=== PATIENT | female | born 1935 | race Caucasian/White ===

== ENCOUNTER 2018-05-13 01:40 | Emergency (ER) | payer MEDICARE, OTHER ==
[~2018-05-13] VITALS: Ht 152.4 cm; Wt 81.8 kg
[~2018-05-13 01:40] MED LIST: ATOR40TA PO; CALCIUM; CLOP75TA35 PO; GABA-530 PO; LOSA25TA96 PO; METO50TA17 PO; NITR0.4T51 SL; OXYB5TAB29 PO; ZOLP5TAB8 PO
[2018-05-13 02:47] LABS: CLARITY,URINE CLEAR (Clear); COLOR,URINE STRAW (Yellow); GLUCOSE, URINE NEGATIVE (Neg); KETONES,URINE NEGATIVE (Neg); LEUKOCYTE ESTERASE ,URINE NEGATIVE (Neg); NITRITES, URINE NEGATIVE (Neg); OCCULT BLOOD,URINE NEGATIVE (Neg); PROTEIN,URINE TRACE mg/dl (Neg); UROBILINOGEN,URINE 0.2 E.U/dL (0.2-1.0)
[2018-05-13 02:47] LABS: BASOPHILS % (AUTO) 0.3 % (0-1); EOSINOPHILS # (AUTO) 0.3 X10'3 (0-0.9); EOSINOPHILS % (AUTO) 3.9 % (0-6); HEMATOCRIT 36.4 % (35.0-45.0); HEMOGLOBIN 12.4 g/dl (12.0-16.0); LYMPHOCYTES # (AUTO) 1.1 X10'3 (1.1-4.8); LYMPHOCYTES % (AUTO) 15.9 % (21-51); MEAN CORPUSCULAR HEMOGLOBIN 34.2 PG (27.0-31.0); MEAN CORPUSCULAR HGB CONC 34.1 g/dL (33.0-36.5); MEAN CORPUSCULAR VOLUME 100.2 FL (78-98); MEAN PLATELET VOLUME 7.9 FL (7.4-10.4); MONOCYTES # (AUTO) 0.6 X10'3 (0-0.9); MONOCYTES % (AUTO) 8.2 % (2-12); NEUTROPHILS # (AUTO) 5.2 X10'3 (1.8-7.7); NEUTROPHILS % (AUTO) 71.7 % (42-75); PLATELET COUNT 260 X10'3 (140-440); RED BLOOD COUNT 3.63 X10'6 (4.20-5.60); RED CELL DISTRIBUTION WIDTH 11.2 % (11.5-14.5); WHITE BLOOD COUNT 7.2 X10'3 (4.5-11.0)
[2018-05-13 02:49] LABS: UA COLLECTION TYPE STRAIGHT CATH
[2018-05-13 02:56] LABS: BACTERIA,URINE FEW /HPF (Neg); RBC,URINE NONE SEEN /HPF (0-2); WBC,URINE NONE SEEN /HPF (0-4)
[2018-05-13 02:57] LABS: SQUAMOUS EPITHELIAL CELL,UR FEW /LPF (FEW)
[2018-05-13 02:58] LABS: ALANINE AMINOTRANSFERASE 21 U/L (12-78); ALBUMIN 3.2 G/DL (3.4-5.0); ALBUMIN/GLOBULIN RATIO 0.9 (1.1-1.5); ALKALINE PHOSPHATASE 130 IU/L (46-116); ANION GAP 9 (8-16); ASPARTATE AMINO TRANSFERASE 16 U/L (10-37); BILIRUBIN,TOTAL 0.2 MG/DL (0.1-1.0); BLOOD UREA NITROGEN 15 MG/DL (7-18); BUN/CREATININE RATIO 21.4 (6.6-38.0); CALCIUM 8.2 MG/DL (8.5-10.1); CHLORIDE 99 MMOL/L (99-107); GLUCOSE 190 MG/DL (70-104); POTASSIUM 3.1 MMOL/L (3.5-5.1); SODIUM 133 MMOL/L (135-145); TOTAL CARBON DIOXIDE 25.1 MMOL/L (24-32); TOTAL PROTEIN 6.6 G/DL (6.4-8.2); eGFR 80 ML/MIN
[2018-05-13 03:00] LABS: PARTIAL THROMBOPLASTIN TIME 32 SECONDS (22-32); PROTHROMBIN TIME 9.8 SECONDS (9.0-12.0)
[2018-05-13 03:06] LABS: MAGNESIUM 1.7 MG/DL (1.5-2.4); TROPONIN I < 0.04 NG/ML (0.0-0.05)
[2018-05-13] MEDS ORDERED: potassium Cl 20 mEq SR tablet PO ONE (03:15)
[2018-05-13] MEDS ORDERED: magnesium oxide 400mg tablet PO ONE (03:15)
[2018-05-13] MEDS ORDERED: HYDROcodone/acetaminophen 5mg/325mg tablet PO ONE (03:35)
[2018-05-13 05:32] VITALS: BP 191/98
== END 2018-05-13 05:34 | disposition home or self-care (01) ==
LOC: ER 01:41
DX: E87.6 Hypokalemia (principal); R07.89 Other chest pain; M54.5 Low back pain; I11.0 Hypertensive heart disease with heart failure; I50.9 Heart failure, unspecified; I25.10 Atherosclerotic heart disease of native coronary artery without angina pectoris; E78.00 Pure hypercholesterolemia, unspecified; I25.2 Old myocardial infarction; Z85.118 Personal history of other malignant neoplasm of bronchus and lung; Z91.011 Allergy to milk products; Z88.8 Allergy status to other drugs, medicaments and biological substances; Z79.899 Other long term (current) drug therapy; Z86.73 Personal history of transient ischemic attack (TIA), and cerebral infarction without residual deficits; Z90.710 Acquired absence of both cervix and uterus; W19.XXXA Unspecified fall, initial encounter; Y93.89 Activity, other specified; Y92.89 Other specified places as the place of occurrence of the external cause; Y99.8 Other external cause status
CPT/HCPCS: 36415; 70450; 71045; 80053; 81001; 83735; 83880; 84145; 84484; 85025; 85610; 85730; 93005; 99284; P9612

== ENCOUNTER 2018-08-14 15:19 | Outpatient (CLI) | payer MEDICARE | END 2018-08-14 23:59 | disposition home or self-care (01) | LOC: RAD 15:19 | PROVIDERS: ATTEND Family Medicine | DX: S22.060K Wedge compression fracture of T7-T8 vertebra, subsequent encounter for fracture with nonunion (principal); M40.294 Other kyphosis, thoracic region; I10 Essential (primary) hypertension; Z87.891 Personal history of nicotine dependence; X58.XXXD Exposure to other specified factors, subsequent encounter | CPT/HCPCS: 72146 ==

== ENCOUNTER 2019-01-24 10:36 | Inpatient (IN) | payer MEDICARE ==
[~2019-01-24] VITALS: Ht 152.4 cm; Wt 81.8 kg
[2019-01-24] MEDS ORDERED: metoprolol tartrate 50mg tablet PO ONE ×3 (11:25→22:40)
[2019-01-24 11:39] LABS: BASOPHILS % (AUTO) 0.5 % (0-1); EOSINOPHILS # (AUTO) 0.1 X10'3 (0-0.9); EOSINOPHILS % (AUTO) 1.7 % (0-6); HEMATOCRIT 34.2 % (35.0-45.0); LYMPHOCYTES # (AUTO) 1.4 X10'3 (1.1-4.8); LYMPHOCYTES % (AUTO) 28.7 % (21-51); MEAN CORPUSCULAR HEMOGLOBIN 34.4 PG (27.0-31.0); MEAN CORPUSCULAR VOLUME 98.2 FL (78-98); MEAN PLATELET VOLUME 8.3 FL (7.4-10.4); MONOCYTES # (AUTO) 0.3 X10'3 (0-0.9); MONOCYTES % (AUTO) 5.7 % (2-12); NEUTROPHILS # (AUTO) 3.1 X10'3 (1.8-7.7); NEUTROPHILS % (AUTO) 63.4 % (42-75); PLATELET COUNT 209 X10'3 (140-440); RED BLOOD COUNT 3.48 X10'6 (4.20-5.60); RED CELL DISTRIBUTION WIDTH 12.1 % (11.5-14.5)
[2019-01-24 11:51] LABS: PARTIAL THROMBOPLASTIN TIME 28 SECONDS (22-32)
[2019-01-24 11:54] LABS: ALANINE AMINOTRANSFERASE 23 U/L (12-78); ALBUMIN 3.3 G/DL (3.4-5.0); ALKALINE PHOSPHATASE 115 IU/L (46-116); ANION GAP 5 (8-16); ASPARTATE AMINO TRANSFERASE 16 U/L (10-37); BILIRUBIN,TOTAL 0.3 MG/DL (0.1-1.0); BLOOD UREA NITROGEN 14 MG/DL (7-18); BUN/CREATININE RATIO 24.1 (6.6-38.0); CALCIUM 8.5 MG/DL (8.5-10.1); CHLORIDE 107 MMOL/L (99-107); CREATININE 0.58 MG/DL (0.40-0.90); GLUCOSE 113 MG/DL (70-104); POTASSIUM 3.1 MMOL/L (3.5-5.1); SODIUM 145 MMOL/L (135-145); TOTAL CARBON DIOXIDE 32.6 MMOL/L (24-32); TOTAL PROTEIN 6.5 G/DL (6.4-8.2); eGFR > 90 ML/MIN
[2019-01-24 12:24] LABS: CLARITY,URINE CLEAR (Clear); COLOR,URINE STRAW (Yellow); GLUCOSE, URINE NEGATIVE (Neg); KETONES,URINE NEGATIVE (Neg); LEUKOCYTE ESTERASE ,URINE TRACE (Neg); NITRITES, URINE NEGATIVE (Neg); OCCULT BLOOD,URINE NEGATIVE (Neg); PH,URINE 7.5 (4.8-8.0); PROTEIN,URINE NEGATIVE (Neg); UROBILINOGEN,URINE 0.2 E.U/dL (0.2-1.0)
[2019-01-24 12:25] LABS: UA COLLECTION TYPE STRAIGHT CATH
[2019-01-24 12:40] LABS: SQUAMOUS EPITHELIAL CELL,UR FEW /LPF (FEW)
[2019-01-24 12:43] LABS: BACTERIA,URINE 1+ /HPF (Neg); RBC,URINE 0-2 /HPF (0-2); RENAL CELLS, URINE FEW /HPF
--- NOTE | 2019-01-24 14:05 | NUR ---
neurotele assessment in progress
[2019-01-24] MEDS ORDERED: CefTRIAXone/D5W-Rocephin 1gm 50 ML IV ONE (14:15)
[2019-01-24] MEDS ORDERED: mag hydrox/Alum hydrox/simeth 30ml oral suspension PO PRN (14:40)
[2019-01-24] MEDS ORDERED: morphine 2 MG/ML inj. syringe IV PRN ×2 (14:40)
[2019-01-24] MEDS ORDERED: acetaminophen 325mg tablet PO PRN ×2 (14:40)
[2019-01-24] MEDS ORDERED: ondansetron/PF 4mg/2ml inj IV PRN (14:40)
[2019-01-24] MEDS ORDERED: magnesium hydroxide 30ml (MOM) UD suspension PO PRN (14:40)
[2019-01-24 15:08] LABS: HEMOGLOBIN A1C 5.7 % (4.5-6.2)
[2019-01-24 15:16] LABS: CHOL/HDL RATIO 3.5 (0.00-4.99); CHOLESTEROL 220 MG/DL (0-200); HDL CHOLESTEROL 63 MG/DL (35-60); LDL CHOLESTEROL 134 MG/DL (50-100); PHENYTOIN (DILANTIN) 11.5 UG/ML (10.0-20.0); TRIGLYCERIDES 97 MG/DL (20-135)
--- NOTE | 2019-01-24 15:19 | NUR ---
Patient in room ED 15. I have received report from Antoinette SONI and had the opportunity to ask questions and assume patient care.
[2019-01-24 15:56] VITALS: BP 175/85
--- NOTE | 2019-01-24 16:41 | NUR ---
Niko [id number] Re: Adriana. Reyes 3.1 can we start her on K replacement protocol?
[2019-01-24] MEDS ORDERED: potassium CL 10mEq/100ml bag 100 ML IV PRN (16:55)
[2019-01-24] MEDS ORDERED: magnesium Cl slow-release 64mg tablet PO PRN (16:55)
[2019-01-24] MEDS ORDERED: magnesium 4gm in 100ml NS 100 ML IV PRN (16:55)
[2019-01-24] MEDS ORDERED: potassium Cl 20 mEq SR tablet PO PRN (16:55)
[2019-01-24] MEDS ORDERED: magnesium 2GM in 50ml NS 50 ML IV PRN (16:55)
[2019-01-24] MEDS: potassium Cl 20 mEq SR tablet PO PRN (17:16)
--- NOTE | 2019-01-24 17:17 | NUR ---
swallowed water fine Addendum: 01/24/19 at 1718 by Niko Rowell RN Amended: Links added.
[2019-01-24] MEDS ORDERED: METO-384 PO (17:34)
[2019-01-24] MEDS ORDERED: labetalol 20mg/4ml (5mg/ml) syringe IV PRN ×2 (17:45→17:50)
[2019-01-24] MEDS ORDERED: nitroGLYCERIN 0.4mg SUBLingual tab SL PRN (17:50)
[2019-01-24 18:00] VITALS: BP 197/74
[2019-01-24] MEDS ORDERED: hydrALAZINE 20mg/ml inj. IV PRN (18:05)
--- NOTE | 2019-01-24 18:17 | NUR ---
Problems reprioritized. Patient report given, questions answered & plan of care reviewed with Ana Maria SONI.
--- NOTE | 2019-01-24 18:18 | NUR ---
Patient in room ORTHO 4009. I have received report from NAE Pope and had the opportunity to ask questions and assume patient care.
[2019-01-24] MEDS ORDERED: TOLT4CAP PO (19:40)
[2019-01-24] MEDS ORDERED: PHEN100C4 PO (19:40)
[2019-01-24] MEDS ORDERED: ASPI-611 PO (19:40)
[2019-01-24 20:00] VITALS: BP_SYST 200; BP_SYST 207; BP_DIAS 76; BP_DIAS 82
--- NOTE | 2019-01-24 20:00 | NUR ---
Around this time I called the physician to resume her home mediations that are due at night time and he gave me those orders.
[2019-01-24] MEDS ORDERED: atorvastatin 20mg tablet PO SCH (21:00)
[2019-01-24] MEDS ORDERED: TOLTERODINE TARTRATE PO SCH (21:00)
[2019-01-24] MEDS ORDERED: phenytoin sod ER 100mg capsule PO SCH (21:00)
[2019-01-24 22:00] VITALS: BP 194/81
[2019-01-24 23:33] VITALS: BP 165/74
[2019-01-25] MEDS: potassium Cl 20 mEq SR tablet PO PRN (00:31)
[2019-01-25 01:00] VITALS: BP 167/66
[2019-01-25 04:00] VITALS: BP 209/68
[2019-01-25] MEDS ORDERED: hydrALAZINE 20mg/ml inj. IV PRN (04:35)
[2019-01-25 05:25] VITALS: BP 156/59
[2019-01-25 05:56] LABS: BASOPHILS % (AUTO) 0.6 % (0-1); EOSINOPHILS # (AUTO) 0.2 X10'3 (0-0.9); HEMATOCRIT 33.6 % (35.0-45.0); HEMOGLOBIN 11.7 g/dl (12.0-16.0); LYMPHOCYTES # (AUTO) 1.8 X10'3 (1.1-4.8); MEAN CORPUSCULAR HEMOGLOBIN 34.1 PG (27.0-31.0); MEAN CORPUSCULAR HGB CONC 34.9 g/dL (33.0-36.5); MEAN CORPUSCULAR VOLUME 97.8 FL (78-98); MEAN PLATELET VOLUME 8.4 FL (7.4-10.4); MONOCYTES # (AUTO) 0.4 X10'3 (0-0.9); MONOCYTES % (AUTO) 8.5 % (2-12); NEUTROPHILS # (AUTO) 2.8 X10'3 (1.8-7.7); NEUTROPHILS % (AUTO) 53.9 % (42-75); PLATELET COUNT 208 X10'3 (140-440); RED BLOOD COUNT 3.43 X10'6 (4.20-5.60); RED CELL DISTRIBUTION WIDTH 12.1 % (11.5-14.5); WHITE BLOOD COUNT 5.2 X10'3 (4.5-11.0)
[2019-01-25 06:00] VITALS: BP 209/68
--- NOTE | 2019-01-25 06:42 | NUR ---
Problems reprioritized. Patient report given, questions answered & plan of care reviewed with NAE Ewing.
[2019-01-25 06:44] LABS: ALBUMIN 3.1 G/DL (3.4-5.0); ANION GAP 7 (8-16); BLOOD UREA NITROGEN 14 MG/DL (7-18); BUN/CREATININE RATIO 25.9 (6.6-38.0); CALCIUM 8.5 MG/DL (8.5-10.1); CHLORIDE 103 MMOL/L (99-107); CHOL/HDL RATIO 3.5 (0.00-4.99); CHOLESTEROL 207 MG/DL (0-200); CREATININE 0.54 MG/DL (0.40-0.90); GLUCOSE 115 MG/DL (70-104); HDL CHOLESTEROL 59 MG/DL (35-60); LDL CHOLESTEROL 129 MG/DL (50-100); MAGNESIUM 1.8 MG/DL (1.5-2.4); POTASSIUM 3.4 MMOL/L (3.5-5.1); SODIUM 138 MMOL/L (135-145); TOTAL CARBON DIOXIDE 27.7 MMOL/L (24-32); TRIGLYCERIDES 119 MG/DL (20-135); eGFR > 90 ML/MIN
[2019-01-25] MEDS ORDERED: CefTRIAXone/D5W-Rocephin 1gm 50 ML IV SCH (08:00)
[2019-01-25] MEDS ORDERED: aspirin 81mg tablet.DR PO SCH (08:00)
[2019-01-25] MEDS ORDERED: metoprolol succinate 25mg (24-HOUR) SR. Tablet PO SCH (08:00)
[2019-01-25] MEDS ORDERED: clopidogrel 75mg tablet PO SCH (08:00)
[2019-01-25 10:00] VITALS: BP 179/89
[2019-01-25] MEDS ORDERED: SULF1TAB49 PO (13:05)
--- NOTE | 2019-01-25 13:30 | NUR ---
Page the doctor regarding patient son wanting to see him, twice.
[2019-01-25] MEDS ORDERED: ATOR20TA66 PO (15:26)
[2019-01-25] MEDS ORDERED: atorvastatin 20mg tablet PO SCH (21:00)
== END 2019-01-25 16:21 | disposition home or self-care (01) | DRG 65 ==
LOC: ER 10:36 → ED HOLD 14:46 → ORTHO 4S 15:35
PROVIDERS: ADMIT Internal Medicine; ATTEND Internal Medicine
DX: I63.9 Cerebral infarction, unspecified (principal); N39.0 Urinary tract infection, site not specified; H70.91 Unspecified mastoiditis, right ear; E78.00 Pure hypercholesterolemia, unspecified; E78.5 Hyperlipidemia, unspecified; I11.0 Hypertensive heart disease with heart failure; I50.9 Heart failure, unspecified; I25.10 Atherosclerotic heart disease of native coronary artery without angina pectoris; I25.2 Old myocardial infarction; Z79.02 Long term (current) use of antithrombotics/antiplatelets; Z79.82 Long term (current) use of aspirin; Z79.899 Other long term (current) drug therapy; Z85.118 Personal history of other malignant neoplasm of bronchus and lung; Z85.3 Personal history of malignant neoplasm of breast; Z86.73 Personal history of transient ischemic attack (TIA), and cerebral infarction without residual deficits; Z87.891 Personal history of nicotine dependence; Z90.710 Acquired absence of both cervix and uterus; Z95.1 Presence of aortocoronary bypass graft; Z90.10 Acquired absence of unspecified breast and nipple
CPT/HCPCS: 36415; 70450; 70544; 70551; 71045; 80048; 80053; 80061; 80185; 81001; 83036; 83735; 83880; 84484; 85025; 85610; 85651; 85730; 87077; 87081; 87088; 87186; 93005; 93306; 93880; 97110; 97116; 97162; 99285; G0378; J0360; J0696

== ENCOUNTER → 2021-02-14 | Outpatient (CLI) | payer MEDICARE ==
[~2021-02-14] MED LIST changes: +ASPI-611 PO; +ATOR20TA66 PO; -ATOR40TA PO; -CALCIUM; +CLOP75TA34 PO; -CLOP75TA35 PO; -GABA-530 PO; +METO-384 PO; -METO50TA17 PO; -OXYB5TAB29 PO; +PHEN100C4 PO; +TOLT4CAP PO
== END | disposition home or self-care (01) ==
LOC: RAD 14:37
PROVIDERS: ATTEND Family Medicine
DX: M25.561 Pain in right knee (principal); M25.562 Pain in left knee; M79.604 Pain in right leg; M79.605 Pain in left leg
CPT/HCPCS: 73565; 93970

== ENCOUNTER 2021-09-10 21:02 | Inpatient (IN) | payer MEDICARE ==
[~2021-09-10] VITALS: Ht 152.4 cm; Wt 59.2 kg
[2021-09-10 22:34] LABS: BASOPHILS % (AUTO) 0.6 % (0-1); EOSINOPHILS # (AUTO) 0.1 X10'3 (0-0.9); EOSINOPHILS % (AUTO) 2.4 % (0-6); HEMATOCRIT 35.6 % (35.0-45.0); HEMOGLOBIN 12.3 g/dl (12.0-16.0); LYMPHOCYTES # (AUTO) 1.1 X10'3 (1.1-4.8); LYMPHOCYTES % (AUTO) 20.1 % (21-51); MEAN CORPUSCULAR HEMOGLOBIN 34.5 PG (27.0-31.0); MEAN CORPUSCULAR HGB CONC 34.5 g/dL (33.0-36.5); MEAN CORPUSCULAR VOLUME 100.3 FL (78-98); MEAN PLATELET VOLUME 8.2 FL (7.4-10.4); MONOCYTES # (AUTO) 0.5 X10'3 (0-0.9); MONOCYTES % (AUTO) 9.5 % (2-12); NEUTROPHILS # (AUTO) 3.7 X10'3 (1.8-7.7); NEUTROPHILS % (AUTO) 67.4 % (42-75); PLATELET COUNT 213 X10'3 (140-440); RED BLOOD COUNT 3.55 X10'6 (4.20-5.60); RED CELL DISTRIBUTION WIDTH 12.6 % (11.5-14.5); WHITE BLOOD COUNT 5.5 X10'3 (4.5-11.0)
[2021-09-10 22:47] LABS: ALANINE AMINOTRANSFERASE 37 U/L (12-78); ALBUMIN 3.4 G/DL (3.4-5.0); ALBUMIN/GLOBULIN RATIO 1.1 (1.1-1.5); ALKALINE PHOSPHATASE 132 IU/L (46-116); ANION GAP 9 (8-16); ASPARTATE AMINO TRANSFERASE 27 U/L (10-37); BILIRUBIN,TOTAL 0.3 MG/DL (0.1-1.0); BLOOD UREA NITROGEN 19 MG/DL (7-18); BUN/CREATININE RATIO 28.8 (6.6-38.0); CALCIUM 8.3 MG/DL (8.5-10.1); CHLORIDE 101 MMOL/L (99-107); CREATININE 0.66 MG/DL (0.40-0.90); GLUCOSE 153 MG/DL (70-104); SODIUM 137 MMOL/L (135-145); TOTAL CARBON DIOXIDE 26.6 MMOL/L (24-32); TOTAL PROTEIN 6.5 G/DL (6.4-8.2); eGFR 85 ML/MIN
[2021-09-11 00:09] LABS: MAGNESIUM 1.7 MG/DL (1.5-2.4)
[2021-09-11] MEDS ORDERED: diltiazem 5mg/ml 5ml inj. IV ONE (00:15)
[2021-09-11] MEDS ORDERED: diltiazem-NS 100mg/100ml 100 ML IV PRN (00:15)
[2021-09-11] MEDS ORDERED: morphine 2 MG/ML inj. syringe IV PRN ×2 (00:40)
[2021-09-11] MEDS ORDERED: ondansetron 4mg rapidly disintigrating tab PO PRN (00:40)
[2021-09-11] MEDS ORDERED: HYDROcodone/acetaminophen 5mg/325mg tablet PO PRN (00:40)
[2021-09-11] MEDS ORDERED: acetaminophen 325mg tablet PO PRN ×2 (00:40)
[2021-09-11] MEDS ORDERED: bisacodyl 10mg suppository rectal RC PRN (00:40)
[2021-09-11] MEDS ORDERED: ondansetron/PF 4mg/2ml inj IV PRN (00:40)
[2021-09-11] MEDS ORDERED: diphenhydrAMINE 25mg capsule PO PRN (00:40)
[2021-09-11] MEDS ORDERED: magnesium hydroxide 30ml (MOM) UD suspension PO PRN (00:40)
[2021-09-11] MEDS ORDERED: mag hydrox/Alum hydrox/simeth 30ml oral suspension PO PRN (00:40)
[2021-09-11] MEDS ORDERED: diphenhydrAMINE 50 mg/ml inj IV PRN (00:40)
[2021-09-11] MEDS ORDERED: heparin 10,000 units/1 ML INJ IV PRN (00:50)
[2021-09-11] MEDS: normal saline 1000ml 1,000 ML IV SCH (01:23)
[2021-09-11 02:36] LABS: HEMOGLOBIN A1C 5.8 % (4.5-6.2)
[2021-09-11 03:00] VITALS: BP 149/101
[2021-09-11 04:02] LABS: CREATINE KINASE 50 U/L (26-192); LIPASE 77 U/L (73-393); MAGNESIUM 1.9 MG/DL (1.5-2.4); PHENYTOIN (DILANTIN) 15.3 UG/ML (10.0-20.0); PHOSPHORUS 3.4 MG/DL (2.3-4.5)
[2021-09-11] MEDS: heparin 25,000 UNIT/250ml bag 250 ML IV SCH ×2 (05:21→10:14)
[2021-09-11 06:46] LABS: APTT 29 SECONDS (22-32); D-DIMER 1.32 MG/L FEU (0-0.50)
[2021-09-11 07:00] VITALS: BP 159/98
[2021-09-11 07:02] LABS: BASOPHILS % (AUTO) 0.5 % (0-1); EOSINOPHILS # (AUTO) 0.1 X10'3 (0-0.9); EOSINOPHILS % (AUTO) 2.2 % (0-6); HEMATOCRIT 37.4 % (35.0-45.0); HEMOGLOBIN 12.3 g/dl (12.0-16.0); LYMPHOCYTES # (AUTO) 1.5 X10'3 (1.1-4.8); LYMPHOCYTES % (AUTO) 24.4 % (21-51); MEAN CORPUSCULAR HEMOGLOBIN 33.7 PG (27.0-31.0); MEAN CORPUSCULAR HGB CONC 32.9 g/dL (33.0-36.5); MEAN CORPUSCULAR VOLUME 102.4 FL (78-98); MEAN PLATELET VOLUME 8.4 FL (7.4-10.4); MONOCYTES # (AUTO) 0.5 X10'3 (0-0.9); MONOCYTES % (AUTO) 8.4 % (2-12); NEUTROPHILS # (AUTO) 4.1 X10'3 (1.8-7.7); NEUTROPHILS % (AUTO) 64.5 % (42-75); PLATELET COUNT 183 X10'3 (140-440); RED BLOOD COUNT 3.66 X10'6 (4.20-5.60); RED CELL DISTRIBUTION WIDTH 12.9 % (11.5-14.5); WHITE BLOOD COUNT 6.3 X10'3 (4.5-11.0)
[2021-09-11] MEDS ORDERED: LOP12.5T PO (09:18)
[2021-09-11] MEDS ORDERED: ATOR-2 PO (09:19)
[2021-09-11] MEDS ORDERED: OXYB15TA19 PO (09:21)
[2021-09-11] MEDS ORDERED: metoprolol tartrate 50mg tablet PO SCH ×2 (09:23→17:00)
[2021-09-11] MEDS: docusate sod 100mg capsule PO SCH ×2 (10:52→21:04)
[2021-09-11] MEDS: aspirin 81mg, enteric-coated 1 TAB TABLET.DR PO SCH (10:52)
[2021-09-11] MEDS: pantoprazole 40mg Tablet.DR PO SCH (10:53)
[2021-09-11 11:00] VITALS: BP 157/78
[2021-09-11 12:11] LABS: CHOL/HDL RATIO 1.9 (0.00-4.99); CHOLESTEROL 130 MG/DL (0-200); HDL CHOLESTEROL 70 MG/DL (35-60); LDL CHOLESTEROL 40 MG/DL (50-100); TRIGLYCERIDES 50 MG/DL (20-135)
[2021-09-11 15:00] VITALS: BP 145/92
--- NOTE | 2021-09-11 16:46 | NUR ---
PAGER ID: [phone] MESSAGE: [id number] Lorie Wright: Patients HR has been creeping up into the 130s/140s since Mini greenwood DC. Her BP is also high at 176/110, and no better after recheck. Camila [facility] 6081
--- NOTE | 2021-09-11 16:47 | NUR ---
Dr Smith response to page: Telephone order for metoprolol dose increase to 100MG BID
[2021-09-11] MEDS: metoprolol tartrate 50mg tablet PO SCH (17:02)
[2021-09-11 18:00] VITALS: BP 148/66
--- NOTE | 2021-09-11 18:02 | NUR ---
PAGER ID: [phone] MESSAGE: [id number] Lorie Wright: [id number] PTT was 120, Heparin drip stopped. Will restart in 120 minutes and reduce rate by 3 units/kg/hr [facility] 5455
[2021-09-11] MEDS ORDERED: temazepam 15mg capsule PO PRN (21:00)
[2021-09-11] MEDS: amiodarone 200mg tablet PO SCH (21:04)
[2021-09-11] MEDS: zolpidem 5mg tablet PO SCH (21:04)
[2021-09-11] MEDS: atorvastatin 20mg tablet PO SCH (21:07)
[2021-09-11] MEDS: phenytoin sod ER 100mg capsule PO SCH (21:08)
[2021-09-11] MEDS: enoxaparin 60mg/0.6ml syringe SUBCUT SCH (21:13)
[2021-09-11 22:00] VITALS: BP 145/77
[2021-09-12 02:00] VITALS: BP 143/93
[2021-09-12 06:00] VITALS: BP 135/79
--- NOTE | 2021-09-12 06:00 | NUR ---
Patient in room PCU 3016. I have received report and had the opportunity to ask questions and assume patient care.
[2021-09-12 06:43] LABS: BASOPHILS % (AUTO) 0.7 % (0-1); EOSINOPHILS # (AUTO) 0.1 X10'3 (0-0.9); EOSINOPHILS % (AUTO) 2.4 % (0-6); HEMOGLOBIN 11.8 g/dl (12.0-16.0); LYMPHOCYTES % (AUTO) 20.2 % (21-51); MEAN CORPUSCULAR HEMOGLOBIN 34.5 PG (27.0-31.0); MEAN CORPUSCULAR HGB CONC 34.8 g/dL (33.0-36.5); MEAN CORPUSCULAR VOLUME 99.3 FL (78-98); MEAN PLATELET VOLUME 8.1 FL (7.4-10.4); MONOCYTES # (AUTO) 0.4 X10'3 (0-0.9); MONOCYTES % (AUTO) 7.9 % (2-12); NEUTROPHILS # (AUTO) 3.5 X10'3 (1.8-7.7); NEUTROPHILS % (AUTO) 68.8 % (42-75); PLATELET COUNT 192 X10'3 (140-440); RED BLOOD COUNT 3.42 X10'6 (4.20-5.60); RED CELL DISTRIBUTION WIDTH 12.4 % (11.5-14.5); WHITE BLOOD COUNT 5.1 X10'3 (4.5-11.0)
[2021-09-12 07:03] LABS: ALANINE AMINOTRANSFERASE 35 U/L (12-78); ALBUMIN/GLOBULIN RATIO 1.1 (1.1-1.5); ALKALINE PHOSPHATASE 104 IU/L (46-116); ANION GAP 6 (8-16); ASPARTATE AMINO TRANSFERASE 24 U/L (10-37); BILIRUBIN,TOTAL 0.4 MG/DL (0.1-1.0); BLOOD UREA NITROGEN 11 MG/DL (7-18); BUN/CREATININE RATIO 16.4 (6.6-38.0); CALCIUM 8.1 MG/DL (8.5-10.1); CHLORIDE 99 MMOL/L (99-107); CHOL/HDL RATIO 1.8 (0.00-4.99); CHOLESTEROL 120 MG/DL (0-200); CREATININE 0.67 MG/DL (0.40-0.90); GLUCOSE 112 MG/DL (70-104); HDL CHOLESTEROL 67 MG/DL (35-60); LDL CHOLESTEROL 33 MG/DL (50-100); POTASSIUM 3.3 MMOL/L (3.5-5.1); SODIUM 135 MMOL/L (135-145); TOTAL CARBON DIOXIDE 29.9 MMOL/L (24-32); TOTAL PROTEIN 5.8 G/DL (6.4-8.2); TRIGLYCERIDES 45 MG/DL (20-135); eGFR 83 ML/MIN
[2021-09-12] MEDS: aspirin 81mg, enteric-coated 1 TAB TABLET.DR PO SCH (08:54)
[2021-09-12] MEDS: metoprolol tartrate 50mg tablet PO SCH ×2 (08:54→19:14)
[2021-09-12] MEDS: clopidogrel 75mg tablet PO SCH (08:54)
[2021-09-12] MEDS: docusate sod 100mg capsule PO SCH ×2 (08:54→19:11)
[2021-09-12] MEDS: amiodarone 200mg tablet PO SCH ×2 (08:55→19:12)
[2021-09-12] MEDS: pantoprazole 40mg Tablet.DR PO SCH (08:55)
[2021-09-12] MEDS: enoxaparin 60mg/0.6ml syringe SUBCUT SCH ×2 (08:55→19:16)
[2021-09-12] MEDS ORDERED: digoxin 250mcg/ml 2ml ampule IV ONE ×2 (10:20→16:30)
[2021-09-12 11:00] VITALS: BP 166/95
[2021-09-12] MEDS: POTASSIUM BICARBONATE/CIT AC 10 MEQ TABLET.EFF PO SCH (11:14)
[2021-09-12] MEDS: furosemide 20 MG/2 ML vial IV SCH (11:14)
[2021-09-12 15:00] VITALS: BP 154/88
[2021-09-12 18:00] VITALS: BP 113/58
[2021-09-12] MEDS: HYDROcodone/acetaminophen 10/325mg tab PO PRN (19:15)
[2021-09-12 22:00] VITALS: BP 139/86
[2021-09-12] MEDS: zolpidem 5mg tablet PO SCH (22:06)
[2021-09-12] MEDS: phenytoin sod ER 100mg capsule PO SCH (22:07)
[2021-09-12] MEDS: atorvastatin 20mg tablet PO SCH (22:07)
[2021-09-13] VITALS (13 sets, daily range): BP systolic 107–155; BP diastolic 49–97
[2021-09-13] MEDS: normal saline 1000ml 1,000 ML IV SCH (01:24)
[2021-09-13 06:39] LABS: BASOPHILS % (AUTO) 0.3 % (0-1); EOSINOPHILS # (AUTO) 0.2 X10'3 (0-0.9); EOSINOPHILS % (AUTO) 2.9 % (0-6); HEMATOCRIT 34.1 % (35.0-45.0); HEMOGLOBIN 11.8 g/dl (12.0-16.0); LYMPHOCYTES # (AUTO) 1.3 X10'3 (1.1-4.8); LYMPHOCYTES % (AUTO) 20.1 % (21-51); MEAN CORPUSCULAR HEMOGLOBIN 34.5 PG (27.0-31.0); MEAN CORPUSCULAR HGB CONC 34.4 g/dL (33.0-36.5); MEAN PLATELET VOLUME 8.2 FL (7.4-10.4); MONOCYTES # (AUTO) 0.6 X10'3 (0-0.9); MONOCYTES % (AUTO) 9.8 % (2-12); NEUTROPHILS # (AUTO) 4.3 X10'3 (1.8-7.7); NEUTROPHILS % (AUTO) 66.9 % (42-75); PLATELET COUNT 185 X10'3 (140-440); RED BLOOD COUNT 3.41 X10'6 (4.20-5.60); RED CELL DISTRIBUTION WIDTH 12.3 % (11.5-14.5); WHITE BLOOD COUNT 6.4 X10'3 (4.5-11.0)
--- NOTE | 2021-09-13 06:39 | NUR ---
Patient in room PCU 3016. I have received report and had the opportunity to ask questions and assume patient care.
[2021-09-13 07:11] LABS: ALANINE AMINOTRANSFERASE 34 U/L (12-78); ALBUMIN 2.9 G/DL (3.4-5.0); ALKALINE PHOSPHATASE 105 IU/L (46-116); ANION GAP 8 (8-16); ASPARTATE AMINO TRANSFERASE 24 U/L (10-37); BILIRUBIN,TOTAL 0.3 MG/DL (0.1-1.0); BLOOD UREA NITROGEN 14 MG/DL (7-18); BUN/CREATININE RATIO 20.3 (6.6-38.0); CALCIUM 8.1 MG/DL (8.5-10.1); CHLORIDE 96 MMOL/L (99-107); CREATININE 0.69 MG/DL (0.40-0.90); GLUCOSE 92 MG/DL (70-104); POTASSIUM 3.6 MMOL/L (3.5-5.1); SODIUM 135 MMOL/L (135-145); TOTAL CARBON DIOXIDE 31.3 MMOL/L (24-32); TOTAL PROTEIN 5.7 G/DL (6.4-8.2); eGFR 81 ML/MIN
[2021-09-13] MEDS: pantoprazole 40mg Tablet.DR PO SCH (07:30)
[2021-09-13] MEDS: amiodarone 200mg tablet PO SCH ×2 (08:40→19:36)
[2021-09-13] MEDS: furosemide 20 MG/2 ML vial IV SCH (08:40)
[2021-09-13] MEDS: clopidogrel 75mg tablet PO SCH (08:44)
[2021-09-13] MEDS: POTASSIUM BICARBONATE/CIT AC 10 MEQ TABLET.EFF PO SCH (08:44)
[2021-09-13] MEDS: aspirin 81mg, enteric-coated 1 TAB TABLET.DR PO SCH (08:44)
[2021-09-13] MEDS: metoprolol tartrate 50mg tablet PO SCH ×2 (08:45→19:38)
[2021-09-13] MEDS: enoxaparin 60mg/0.6ml syringe SUBCUT SCH ×2 (08:46→19:38)
[2021-09-13] MEDS: docusate sod 100mg capsule PO SCH ×2 (08:46→19:35)
[2021-09-13] MEDS ORDERED: MIDAZolam 1mg/ml 10ml vial IV ONE (10:15)
[2021-09-13] MEDS ORDERED: morphine 10mg/ml inj. IV ONE (10:15)
[2021-09-13] MEDS ORDERED: amiodarone 150mg/dext, iso-os 100 ML IV ONE (11:15)
[2021-09-13] MEDS: HYDROcodone/acetaminophen 10/325mg tab PO PRN ×2 (12:26→19:42)
--- NOTE | 2021-09-13 14:00 | NUR ---
ambulated patient to bathroom, when returned to bed reported feeling extremely dizzy and nauseous. Q Addendum: 09/13/21 at 1754 by Jimenez Hampton RN Quickly began to feel better while laying in bed, VS obtained, WNL. recovered within 2 minutes and was feeling back to baseline
[2021-09-13] MEDS: zolpidem 5mg tablet PO SCH (20:58)
[2021-09-13] MEDS: phenytoin sod ER 100mg capsule PO SCH (20:58)
[2021-09-13] MEDS: atorvastatin 20mg tablet PO SCH (20:59)
--- NOTE | 2021-09-14 00:13 | NUR ---
pt had ST-segment elevation,MD Link notified.no new orders at this time.
[2021-09-14 02:00] VITALS: BP 125/55
[2021-09-14 06:48] LABS: BASOPHILS % (AUTO) 0.3 % (0-1); EOSINOPHILS # (AUTO) 0.1 X10'3 (0-0.9); EOSINOPHILS % (AUTO) 1.8 % (0-6); HEMATOCRIT 36.3 % (35.0-45.0); HEMOGLOBIN 12.1 g/dl (12.0-16.0); LYMPHOCYTES # (AUTO) 1.3 X10'3 (1.1-4.8); LYMPHOCYTES % (AUTO) 17.4 % (21-51); MEAN CORPUSCULAR HEMOGLOBIN 33.9 PG (27.0-31.0); MEAN CORPUSCULAR HGB CONC 33.2 g/dL (33.0-36.5); MEAN PLATELET VOLUME 8.2 FL (7.4-10.4); MONOCYTES # (AUTO) 0.7 X10'3 (0-0.9); MONOCYTES % (AUTO) 9.7 % (2-12); NEUTROPHILS # (AUTO) 5.4 X10'3 (1.8-7.7); NEUTROPHILS % (AUTO) 70.8 % (42-75); PLATELET COUNT 168 X10'3 (140-440); RED BLOOD COUNT 3.56 X10'6 (4.20-5.60); RED CELL DISTRIBUTION WIDTH 12.6 % (11.5-14.5); WHITE BLOOD COUNT 7.7 X10'3 (4.5-11.0)
[2021-09-14] MEDS: enoxaparin 60mg/0.6ml syringe SUBCUT SCH (08:00)
[2021-09-14] MEDS: amiodarone 200mg tablet PO SCH (08:00)
[2021-09-14] MEDS: aspirin 81mg, enteric-coated 1 TAB TABLET.DR PO SCH (08:00)
[2021-09-14] MEDS: pantoprazole 40mg Tablet.DR PO SCH (08:00)
[2021-09-14 08:04] VITALS: BP_SYST 124
[2021-09-14] MEDS: furosemide 20 MG/2 ML vial IV SCH (08:04)
[2021-09-14] MEDS: docusate sod 100mg capsule PO SCH (08:04)
[2021-09-14] MEDS: metoprolol tartrate 50mg tablet PO SCH (08:04)
[2021-09-14] MEDS: clopidogrel 75mg tablet PO SCH (08:04)
[2021-09-14 08:16] LABS: ALANINE AMINOTRANSFERASE 42 U/L (12-78); ALBUMIN 3.1 G/DL (3.4-5.0); ALKALINE PHOSPHATASE 110 IU/L (46-116); ANION GAP 7 (8-16); ASPARTATE AMINO TRANSFERASE 32 U/L (10-37); BILIRUBIN,TOTAL 0.4 MG/DL (0.1-1.0); BLOOD UREA NITROGEN 22 MG/DL (7-18); CALCIUM 8.3 MG/DL (8.5-10.1); CHLORIDE 94 MMOL/L (99-107); CREATININE 0.88 MG/DL (0.40-0.90); GLUCOSE 104 MG/DL (70-104); POTASSIUM 4.2 MMOL/L (3.5-5.1); SODIUM 131 MMOL/L (135-145); TOTAL CARBON DIOXIDE 30.4 MMOL/L (24-32); TOTAL PROTEIN 6.1 G/DL (6.4-8.2); eGFR 61 ML/MIN
[2021-09-14] MEDS: HYDROcodone/acetaminophen 10/325mg tab PO PRN (10:13)
[2021-09-14] MEDS ORDERED: APIX2.5T PO (10:57)
[2021-09-14] MEDS ORDERED: POTA10TA37 PO (10:57)
[2021-09-14] MEDS ORDERED: AMIO200T67 PO (10:57)
[2021-09-14] MEDS ORDERED: METO50TA16 PO (10:57)
[2021-09-14] MEDS ORDERED: FURO-150 PO (10:57)
== END 2021-09-14 12:42 | disposition home health service (06) | DRG 291 ==
LOC: ER 21:04 → ED HOLD 09-11 00:46 → PCU 3S 09-11 03:04
PROVIDERS: ADMIT Family Medicine; ATTEND Family Medicine
PROC: 5A2204Z Restoration of Cardiac Rhythm, Single (ICD-10-PCS; principal; 2021-09-13)
PROC: B24CZZ4 Ultrasonography of Pericardium, Transesophageal (ICD-10-PCS; 2021-09-13)
DX: I11.0 Hypertensive heart disease with heart failure (principal); I50.31 Acute diastolic (congestive) heart failure; E87.1 Hypo-osmolality and hyponatremia; I48.91 Unspecified atrial fibrillation; I25.10 Atherosclerotic heart disease of native coronary artery without angina pectoris; E11.9 Type 2 diabetes mellitus without complications; G40.909 Epilepsy, unspecified, not intractable, without status epilepticus; E78.00 Pure hypercholesterolemia, unspecified; K57.90 Diverticulosis of intestine, part unspecified, without perforation or abscess without bleeding; E78.5 Hyperlipidemia, unspecified; E87.6 Hypokalemia; Z96.619 Presence of unspecified artificial shoulder joint; I08.1 Rheumatic disorders of both mitral and tricuspid valves; E66.9 Obesity, unspecified; R00.0 Tachycardia, unspecified; F03.90 Unspecified dementia, unspecified severity, without behavioral disturbance, psychotic disturbance, mood disturbance, and anxiety; Z79.82 Long term (current) use of aspirin; Z79.899 Other long term (current) drug therapy; Z86.73 Personal history of transient ischemic attack (TIA), and cerebral infarction without residual deficits; Z87.891 Personal history of nicotine dependence; Z90.2 Acquired absence of lung [part of]; I25.2 Old myocardial infarction; Z85.118 Personal history of other malignant neoplasm of bronchus and lung; Z90.710 Acquired absence of both cervix and uterus; Z95.1 Presence of aortocoronary bypass graft; Z95.5 Presence of coronary angioplasty implant and graft; Z88.8 Allergy status to other drugs, medicaments and biological substances; Z68.25 Body mass index [BMI] 25.0-25.9, adult; Z79.02 Long term (current) use of antithrombotics/antiplatelets
CPT/HCPCS: 36415; 71045; 80053; 80061; 80185; 82550; 83036; 83690; 83735; 83880; 84100; 84443; 84484; 85025; 85379; 85610; 85730; 87081; 92508; 92616; 93005; 93306; 93312; 93325; 94799; 97116; 97161; 97530; 99285; A4615; A6212; A6260; G0378; J1160; J1644; J1650; J1940; J2250; J2274; J2405; J3490; J7030

== ENCOUNTER 2021-10-12 10:42 | Emergency (ER) | payer MEDICARE ==
[~2021-10-12] VITALS: Ht 152.4 cm; Wt 72.2 kg
[~2021-10-12 10:42] MED LIST changes: +AMIO200T67 PO; +APIX2.5T PO; +ATOR-2 PO; -ATOR20TA66 PO; +FURO-150 PO; -LOSA25TA96 PO; -METO-384 PO; +METO50TA16 PO; +OXYB15TA19 PO; +POTA10TA37 PO; -TOLT4CAP PO
[2021-10-12 11:25] LABS: BASOPHILS % (AUTO) 0.4 % (0-1); EOSINOPHILS # (AUTO) 0.1 X10'3 (0-0.9); EOSINOPHILS % (AUTO) 1.3 % (0-6); HEMATOCRIT 37.2 % (35.0-45.0); HEMOGLOBIN 13.1 g/dl (12.0-16.0); LYMPHOCYTES # (AUTO) 1.4 X10'3 (1.1-4.8); LYMPHOCYTES % (AUTO) 24.4 % (21-51); MEAN CORPUSCULAR HEMOGLOBIN 34.8 PG (27.0-31.0); MEAN CORPUSCULAR HGB CONC 35.1 g/dL (33.0-36.5); MEAN PLATELET VOLUME 7.4 FL (7.4-10.4); MONOCYTES # (AUTO) 0.3 X10'3 (0-0.9); MONOCYTES % (AUTO) 6.2 % (2-12); NEUTROPHILS # (AUTO) 3.8 X10'3 (1.8-7.7); NEUTROPHILS % (AUTO) 67.7 % (42-75); PLATELET COUNT 249 X10'3 (140-440); RED BLOOD COUNT 3.76 X10'6 (4.20-5.60); RED CELL DISTRIBUTION WIDTH 12.3 % (11.5-14.5); WHITE BLOOD COUNT 5.6 X10'3 (4.5-11.0)
[2021-10-12 11:50] LABS: ALANINE AMINOTRANSFERASE 47 U/L (12-78); ALBUMIN 3.8 G/DL (3.4-5.0); ALBUMIN/GLOBULIN RATIO 1.1 (1.1-1.5); ALKALINE PHOSPHATASE 126 IU/L (46-116); ANION GAP 8 (8-16); ASPARTATE AMINO TRANSFERASE 31 U/L (10-37); BILIRUBIN,TOTAL 0.4 MG/DL (0.1-1.0); BLOOD UREA NITROGEN 13 MG/DL (7-18); BUN/CREATININE RATIO 21.7 (6.6-38.0); CALCIUM 8.8 MG/DL (8.5-10.1); CHLORIDE 99 MMOL/L (99-107); GLUCOSE 131 MG/DL (70-104); POTASSIUM 3.7 MMOL/L (3.5-5.1); SODIUM 134 MMOL/L (135-145); TOTAL CARBON DIOXIDE 26.7 MMOL/L (24-32); TOTAL PROTEIN 7.3 G/DL (6.4-8.2); eGFR > 90 ML/MIN
[2021-10-12 12:58] LABS: CLARITY,URINE CLEAR (Clear); GLUCOSE, URINE NEGATIVE (Neg); KETONES,URINE NEGATIVE (Neg); LEUKOCYTE ESTERASE ,URINE NEGATIVE (Neg); NITRITES, URINE NEGATIVE (Neg); OCCULT BLOOD,URINE NEGATIVE (Neg); PROTEIN,URINE NEGATIVE (Neg); UROBILINOGEN,URINE 0.2 E.U/dL (0.2-1.0)
[2021-10-12 13:12] LABS: COLOR,URINE STRAW (Yellow); UA COLLECTION TYPE NON-SPECIFIED
[2021-10-12 14:07] VITALS: BP 161/97
--- NOTE | 2021-10-12 15:13 | NUR ---
Spoke with David Casper, states patient family would like patient placed in [facility] for PT services, patient discharged 09/14/21, still has open window qualifying stay through Medicare A&B, [facility] accepted, orders sent to [facility], spoke with son Sav and patient, agreeable to [facility], understands there will be a co pay after day 20 of stay, orders given to son because he is providing transport, COVID test pending
[2021-10-13] MEDS ORDERED: APIX2.5T PO (13:49)
[2021-10-13] MEDS ORDERED: FURO-150 PO (13:49)
[2021-10-13] MEDS ORDERED: LOP25T PO (13:49)
[2021-10-13] MEDS ORDERED: AMIO200T61 PO (13:49)
[2021-10-13] MEDS ORDERED: POTA-192 PO (13:49)
== END 2021-10-12 14:13 | disposition home or self-care (01) ==
LOC: ER 10:43
DX: R53.1 Weakness (principal); I11.9 Hypertensive heart disease without heart failure; Z88.8 Allergy status to other drugs, medicaments and biological substances; Z79.899 Other long term (current) drug therapy; Z79.82 Long term (current) use of aspirin
CPT/HCPCS: 36415; 80053; 81003; 85025; 99284

== ENCOUNTER 2021-10-12 16:14 | Inpatient (IN) | payer MEDICARE ==
[~2021-10-12] VITALS: Ht 167.6 cm; Wt 72.3 kg
[2021-10-12 16:50] LABS: HEMATOCRIT 36.7 % (35.0-45.0); HEMOGLOBIN 12.7 g/dl (12.0-16.0); MEAN CORPUSCULAR HEMOGLOBIN 34.5 PG (27.0-31.0); MEAN CORPUSCULAR HGB CONC 34.7 g/dL (33.0-36.5); MEAN CORPUSCULAR VOLUME 99.6 FL (78-98); RED BLOOD COUNT 3.68 X10'6 (4.20-5.60); WHITE BLOOD COUNT 5.6 X10'3 (4.5-11.0)
[2021-10-12 16:51] LABS: BASOPHILS % (AUTO) 0.4 % (0-1); EOSINOPHILS % (AUTO) 0.6 % (0-6); LYMPHOCYTES # (AUTO) 0.8 X10'3 (1.1-4.8); LYMPHOCYTES % (AUTO) 14.4 % (21-51); MEAN PLATELET VOLUME 7.6 FL (7.4-10.4); MONOCYTES # (AUTO) 0.3 X10'3 (0-0.9); NEUTROPHILS # (AUTO) 4.4 X10'3 (1.8-7.7); NEUTROPHILS % (AUTO) 78.6 % (42-75); PLATELET COUNT 259 X10'3 (140-440); RED CELL DISTRIBUTION WIDTH 12.1 % (11.5-14.5)
--- NOTE | 2021-10-12 16:52 | NUR ---
tele consult at this time
[2021-10-12 17:03] LABS: APTT 31 SECONDS (22-32)
[2021-10-12 17:05] LABS: ALANINE AMINOTRANSFERASE 44 U/L (12-78); ALBUMIN 3.9 G/DL (3.4-5.0); ALBUMIN/GLOBULIN RATIO 1.2 (1.1-1.5); ALKALINE PHOSPHATASE 123 IU/L (46-116); ANION GAP 10 (8-16); ASPARTATE AMINO TRANSFERASE 29 U/L (10-37); BILIRUBIN,TOTAL 0.4 MG/DL (0.1-1.0); BLOOD UREA NITROGEN 14 MG/DL (7-18); BUN/CREATININE RATIO 17.7 (6.6-38.0); CALCIUM 8.9 MG/DL (8.5-10.1); CHLORIDE 98 MMOL/L (99-107); CREATININE 0.79 MG/DL (0.40-0.90); GLUCOSE 143 MG/DL (70-104); POTASSIUM 3.6 MMOL/L (3.5-5.1); SODIUM 136 MMOL/L (135-145); TOTAL CARBON DIOXIDE 28.1 MMOL/L (24-32); TOTAL PROTEIN 7.2 G/DL (6.4-8.2); eGFR 69 ML/MIN
--- NOTE | 2021-10-12 17:08 | NUR ---
Sav ([facility]) [phone] primary
[2021-10-12] MEDS ORDERED: iohexol 350MG/ML 100ml bottle IV ONE (17:24)
[2021-10-12] MEDS ORDERED: potassium CL 10mEq/100ml bag 100 ML IV PRN (17:40)
[2021-10-12] MEDS ORDERED: magnesium 2GM in 50ml NS 50 ML IV PRN (17:40)
[2021-10-12] MEDS ORDERED: POTASSIUM BICARB 20meq eff tab 20 MEQ TABLET.EFF PO PRN (17:40)
[2021-10-12] MEDS ORDERED: magnesium 4gm in 100ml NS 100 ML IV PRN (17:40)
[2021-10-12] MEDS ORDERED: PERFLUTREN PROTEIN-A MICROSPHR (Optison) 0.22 MG/ML 3ML VIAL IV ONE (17:40)
[2021-10-12] MEDS ORDERED: ondansetron/PF 4mg/2ml inj IV PRN (17:40)
[2021-10-12] MEDS ORDERED: magnesium Cl slow-release 64mg tablet PO PRN (17:40)
--- NOTE | 2021-10-12 19:23 | NUR ---
First encounter with pt that is here today for right side weakness and to rule out strke. Pt was wet and bedding was changed. Pts son was updated on POC
[2021-10-12] MEDS: docusate sod 100mg capsule PO SCH (20:00)
[2021-10-12] MEDS: K and/or MAG REPLACEMENT MC SCH (20:00)
[2021-10-12 22:37] LABS: CLARITY,URINE CLEAR (Clear); COLOR,URINE YELLOW (Yellow); GLUCOSE, URINE NEGATIVE (Neg); KETONES,URINE TRACE mg/dl (Neg); LEUKOCYTE ESTERASE ,URINE NEGATIVE (Neg); NITRITES, URINE NEGATIVE (Neg); OCCULT BLOOD,URINE TRACE-INTACT (Neg); PH,URINE 7.5 (4.8-8.0); PROTEIN,URINE NEGATIVE (Neg); UROBILINOGEN,URINE 0.2 E.U/dL (0.2-1.0)
[2021-10-12 22:54] LABS: UA COLLECTION TYPE NON-SPECIFIED
[2021-10-12 22:58] LABS: WBC,URINE 0-4 /HPF (0-4)
[2021-10-12 22:59] LABS: AMORPHOUS PHOSPHATES 1+; BACTERIA,URINE FEW /HPF (Neg); MUCUS STRANDS FEW /LPF (Neg); RBC,URINE 0-2 /HPF (0-2); SQUAMOUS EPITHELIAL CELL,UR FEW /LPF (FEW)
[2021-10-13 07:38] LABS: BASOPHILS % (AUTO) 0.3 % (0-1); EOSINOPHILS % (AUTO) 0.4 % (0-6); HEMATOCRIT 36.2 % (35.0-45.0); HEMOGLOBIN 12.6 g/dl (12.0-16.0); LYMPHOCYTES # (AUTO) 1.5 X10'3 (1.1-4.8); LYMPHOCYTES % (AUTO) 19.9 % (21-51); MEAN CORPUSCULAR HEMOGLOBIN 34.3 PG (27.0-31.0); MEAN CORPUSCULAR HGB CONC 34.9 g/dL (33.0-36.5); MEAN CORPUSCULAR VOLUME 98.3 FL (78-98); MEAN PLATELET VOLUME 7.7 FL (7.4-10.4); MONOCYTES # (AUTO) 0.5 X10'3 (0-0.9); MONOCYTES % (AUTO) 6.6 % (2-12); NEUTROPHILS # (AUTO) 5.7 X10'3 (1.8-7.7); NEUTROPHILS % (AUTO) 72.8 % (42-75); PLATELET COUNT 258 X10'3 (140-440); RED BLOOD COUNT 3.68 X10'6 (4.20-5.60); RED CELL DISTRIBUTION WIDTH 12.2 % (11.5-14.5); WHITE BLOOD COUNT 7.8 X10'3 (4.5-11.0)
[2021-10-13 08:00] LABS: ALANINE AMINOTRANSFERASE 41 U/L (12-78); ALBUMIN 3.5 G/DL (3.4-5.0); ALKALINE PHOSPHATASE 111 IU/L (46-116); ANION GAP 8 (8-16); ASPARTATE AMINO TRANSFERASE 28 U/L (10-37); BILIRUBIN,TOTAL 0.4 MG/DL (0.1-1.0); BLOOD UREA NITROGEN 15 MG/DL (7-18); BUN/CREATININE RATIO 24.2 (6.6-38.0); CALCIUM 8.8 MG/DL (8.5-10.1); CHLORIDE 100 MMOL/L (99-107); CHOLESTEROL 151 MG/DL (0-200); CREATININE 0.62 MG/DL (0.40-0.90); GLUCOSE 110 MG/DL (70-104); HDL CHOLESTEROL 77 MG/DL (35-60); LDL CHOLESTEROL 52 MG/DL (50-100); MAGNESIUM 1.8 MG/DL (1.5-2.4); POTASSIUM 3.2 MMOL/L (3.5-5.1); SODIUM 136 MMOL/L (135-145); TOTAL CARBON DIOXIDE 27.9 MMOL/L (24-32); TRIGLYCERIDES 55 MG/DL (20-135); eGFR > 90 ML/MIN
[2021-10-13] MEDS: K and/or MAG REPLACEMENT MC SCH ×2 (08:00→19:37)
[2021-10-13] MEDS: docusate sod 100mg capsule PO SCH ×2 (09:52→19:37)
--- NOTE | 2021-10-13 12:30 | NUR ---
MRI screening form completed and sent to MRI. Patient resting on gurnery with son at bedside.
[2021-10-13] MEDS ORDERED: POTA-192 PO (13:49)
[2021-10-13] MEDS ORDERED: FURO-150 PO (13:49)
[2021-10-13] MEDS ORDERED: AMIO200T61 PO (13:49)
[2021-10-13] MEDS ORDERED: LOP25T PO (13:49)
[2021-10-13] MEDS ORDERED: APIX2.5T PO (13:49)
--- NOTE | 2021-10-13 13:50 | NUR ---
Patient sent to MRI via gurney. Patient accompanied by stroke RN
--- NOTE | 2021-10-13 14:16 | NUR ---
Patient returned to ED from MRI
[2021-10-13] MEDS ORDERED: aspirin 81mg, enteric-coated 1 TAB TABLET.DR PO ONE (14:35)
--- NOTE | 2021-10-13 14:36 | NUR ---
SCD's place on patient
--- NOTE | 2021-10-13 15:59 | NUR ---
Patient in room ED 1. I have received report from Laverne mcintyre and had the opportunity to ask questions and assume patient care.
[2021-10-13 17:12] VITALS: BP 197/95
[2021-10-13] MEDS: POTASSIUM BICARB 20meq eff tab 20 MEQ TABLET.EFF PO PRN ×2 (17:35→22:29)
[2021-10-13 17:38] VITALS: BP 169/92
--- NOTE | 2021-10-13 17:51 | NUR ---
PATIENT ORIENTATED TO ROOM. b/p 197/95, Dr arevalo made aware. Repeat B/P 169/92. son romina at bedside. wick placed with good effect. patient appears alert and orientated x4. will continue to monitor.
[2021-10-13 18:00] VITALS: BP 191/93
--- NOTE | 2021-10-13 18:31 | NUR ---
Patient in room PCU 3015B. I have received report from Sarah SONI and had the opportunity to ask questions and assume patient care.
--- NOTE | 2021-10-13 18:54 | NUR ---
Problems reprioritized. Patient report given, questions answered & plan of care reviewed with natan SONI.
[2021-10-13] MEDS ORDERED: hydrALAZINE 20mg/ml inj. IV ONE (19:00)
[2021-10-13 19:43] VITALS: BP 188/85
[2021-10-13 22:00] VITALS: BP 148/77
[2021-10-13] MEDS ORDERED: HYDROcodone/acetaminophen 5mg/325mg tablet PO ONE (22:55)
--- NOTE | 2021-10-13 22:56 | NUR ---
Pt complaining of pain in R Great toe. Pt denies any c/o tingling, numbness, no s/s of swelling, pedal pulse felt. MD made aware new orders imputed for Uric Acid am lab draw and one time give now dose of [place] 5/325mg.
--- NOTE | 2021-10-14 01:05 | NUR ---
Pt has c/o R great toe pain. Toe sensitive to touch, no numbness, no tingling, no swelling. Md notified and new order for one time 2mg morphine IVP given.
[2021-10-14] MEDS ORDERED: morphine 2 MG/ML inj. syringe IV ONE (01:10)
--- NOTE | 2021-10-14 01:25 | NUR ---
crown and bridge technician notified primary nurse that PTs tele strip reading was showing slight ST changes, different from admit EKG reading. MD notified and new orders received for EKG reading.
[2021-10-14 02:00] VITALS: BP 130/59
--- NOTE | 2021-10-14 06:06 | NUR ---
Problems reprioritized. Patient report given, questions answered & plan of care reviewed with Sarah SONI.
[2021-10-14 07:19] LABS: BASOPHILS % (AUTO) 0.3 % (0-1); EOSINOPHILS % (AUTO) 0.4 % (0-6); HEMATOCRIT 35.6 % (35.0-45.0); HEMOGLOBIN 12.3 g/dl (12.0-16.0); LYMPHOCYTES % (AUTO) 11.3 % (21-51); MEAN CORPUSCULAR HEMOGLOBIN 34.2 PG (27.0-31.0); MEAN CORPUSCULAR HGB CONC 34.6 g/dL (33.0-36.5); MEAN CORPUSCULAR VOLUME 98.7 FL (78-98); MEAN PLATELET VOLUME 7.5 FL (7.4-10.4); MONOCYTES # (AUTO) 0.8 X10'3 (0-0.9); MONOCYTES % (AUTO) 9.1 % (2-12); NEUTROPHILS # (AUTO) 6.7 X10'3 (1.8-7.7); NEUTROPHILS % (AUTO) 78.9 % (42-75); PLATELET COUNT 246 X10'3 (140-440); RED CELL DISTRIBUTION WIDTH 12.1 % (11.5-14.5); WHITE BLOOD COUNT 8.4 X10'3 (4.5-11.0)
[2021-10-14 08:00] VITALS: BP 144/64
[2021-10-14] MEDS: K and/or MAG REPLACEMENT MC SCH ×2 (08:00→19:43)
[2021-10-14 08:02] LABS: ALANINE AMINOTRANSFERASE 43 U/L (12-78); ALBUMIN 3.2 G/DL (3.4-5.0); ALKALINE PHOSPHATASE 106 IU/L (46-116); ANION GAP 4 (8-16); ASPARTATE AMINO TRANSFERASE 30 U/L (10-37); BILIRUBIN,TOTAL 0.4 MG/DL (0.1-1.0); BLOOD UREA NITROGEN 18 MG/DL (7-18); BUN/CREATININE RATIO 21.4 (6.6-38.0); CALCIUM 8.2 MG/DL (8.5-10.1); CHLORIDE 98 MMOL/L (99-107); CREATININE 0.84 MG/DL (0.40-0.90); GLUCOSE 122 MG/DL (70-104); MAGNESIUM 1.6 MG/DL (1.5-2.4); POTASSIUM 3.7 MMOL/L (3.5-5.1); SODIUM 133 MMOL/L (135-145); TOTAL PROTEIN 6.4 G/DL (6.4-8.2); eGFR 64 ML/MIN
[2021-10-14] MEDS ORDERED: nitroGLYCERIN 0.4mg SUBLingual tab SL PRN (09:30)
[2021-10-14 11:00] VITALS: BP 127/77
[2021-10-14] MEDS: docusate sod 100mg capsule PO SCH ×2 (11:26→19:44)
[2021-10-14] MEDS: aspirin 81mg, enteric-coated 1 TAB TABLET.DR PO SCH (11:26)
[2021-10-14 15:00] VITALS: BP 123/58
[2021-10-14] MEDS ORDERED: ondansetron 4mg rapidly disintigrating tab PO PRN (15:35)
[2021-10-14] MEDS: acetaminophen 325mg tablet PO PRN (17:56)
--- NOTE | 2021-10-14 18:45 | NUR ---
patient appears stable. Small BM. patient seen by phyllis stroke nurse and Dr Montalvo. Meds addressed. case managers notified with regards placement possibly in [facility] per romina patients son. All cares given. Report given to Antonette SONI
[2021-10-14] MEDS: amiodarone 200mg tablet PO SCH (19:44)
[2021-10-14] MEDS: oxybutynin 5mg tablet PO SCH (19:45)
[2021-10-14] MEDS: metoprolol tartrate 25mg tablet PO SCH (19:46)
[2021-10-14] MEDS ORDERED: apixaban 2.5mg tablet PO SCH (20:00)
[2021-10-14] MEDS: atorvastatin 20mg tablet PO SCH (20:58)
[2021-10-14] MEDS: phenytoin sod ER 100mg capsule PO SCH (20:59)
[2021-10-14] MEDS: zolpidem 5mg tablet PO SCH (20:59)
[2021-10-15] MEDS: acetaminophen 325mg tablet PO PRN (03:04)
[2021-10-15 06:00] VITALS: BP 163/73
[2021-10-15 06:05] LABS: BASOPHILS % (AUTO) 0.1 % (0-1); EOSINOPHILS % (AUTO) 0.4 % (0-6); HEMATOCRIT 34.7 % (35.0-45.0); HEMOGLOBIN 12.2 g/dl (12.0-16.0); LYMPHOCYTES # (AUTO) 1.6 X10'3 (1.1-4.8); LYMPHOCYTES % (AUTO) 17.6 % (21-51); MEAN CORPUSCULAR HEMOGLOBIN 34.6 PG (27.0-31.0); MEAN CORPUSCULAR HGB CONC 35.3 g/dL (33.0-36.5); MEAN CORPUSCULAR VOLUME 97.9 FL (78-98); MEAN PLATELET VOLUME 7.7 FL (7.4-10.4); MONOCYTES # (AUTO) 0.8 X10'3 (0-0.9); MONOCYTES % (AUTO) 8.7 % (2-12); NEUTROPHILS # (AUTO) 6.6 X10'3 (1.8-7.7); NEUTROPHILS % (AUTO) 73.2 % (42-75); PLATELET COUNT 256 X10'3 (140-440); RED BLOOD COUNT 3.54 X10'6 (4.20-5.60); RED CELL DISTRIBUTION WIDTH 12.1 % (11.5-14.5); WHITE BLOOD COUNT 9.1 X10'3 (4.5-11.0)
--- NOTE | 2021-10-15 06:41 | NUR ---
Patient in room PCU 3015. I have received report from Osorio SONI and had the opportunity to ask questions and assume patient care.
[2021-10-15 06:43] LABS: ALANINE AMINOTRANSFERASE 39 U/L (12-78); ALBUMIN 3.1 G/DL (3.4-5.0); ALBUMIN/GLOBULIN RATIO 0.9 (1.1-1.5); ALKALINE PHOSPHATASE 97 IU/L (46-116); ANION GAP 6 (8-16); ASPARTATE AMINO TRANSFERASE 30 U/L (10-37); BILIRUBIN,TOTAL 0.4 MG/DL (0.1-1.0); BLOOD UREA NITROGEN 18 MG/DL (7-18); BUN/CREATININE RATIO 25.4 (6.6-38.0); CALCIUM 8.6 MG/DL (8.5-10.1); CHLORIDE 95 MMOL/L (99-107); CREATININE 0.71 MG/DL (0.40-0.90); GLUCOSE 115 MG/DL (70-104); MAGNESIUM 1.8 MG/DL (1.5-2.4); POTASSIUM 3.6 MMOL/L (3.5-5.1); SODIUM 129 MMOL/L (135-145); TOTAL CARBON DIOXIDE 27.8 MMOL/L (24-32); TOTAL PROTEIN 6.5 G/DL (6.4-8.2); eGFR 78 ML/MIN
[2021-10-15] MEDS ORDERED: clopidogrel 75mg tablet PO SCH (08:00)
[2021-10-15] MEDS: K and/or MAG REPLACEMENT MC SCH ×2 (08:00→20:00)
[2021-10-15] MEDS ORDERED: ASPIRIN PO SCH (08:00)
[2021-10-15] MEDS ORDERED: furosemide 20MG tablet PO SCH (08:00)
[2021-10-15] MEDS: docusate sod 100mg capsule PO SCH ×2 (08:57→20:51)
[2021-10-15] MEDS: aspirin 81mg, enteric-coated 1 TAB TABLET.DR PO SCH (08:57)
[2021-10-15] MEDS: metoprolol tartrate 25mg tablet PO SCH ×2 (08:57→20:54)
[2021-10-15] MEDS: apixaban 5mg tablet PO SCH ×2 (08:59→20:55)
[2021-10-15] MEDS: oxybutynin 5mg tablet PO SCH ×2 (09:00→20:51)
[2021-10-15] MEDS: amiodarone 200mg tablet PO SCH ×2 (09:01→20:50)
[2021-10-15] MEDS ORDERED: APIX5TAB3 PO (10:32)
[2021-10-15] MEDS: normal saline 1000ml 1,000 ML IV SCH ×2 (10:53→18:55)
[2021-10-15 11:00] VITALS: BP 175/77
[2021-10-15 15:00] VITALS: BP 97/76
[2021-10-15 18:00] VITALS: BP 166/74
--- NOTE | 2021-10-15 18:57 | NUR ---
Problems reprioritized. Patient report given, questions answered & plan of care reviewed with Kim SONI.
[2021-10-15] MEDS: phenytoin sod ER 100mg capsule PO SCH (20:49)
[2021-10-15] MEDS: atorvastatin 20mg tablet PO SCH (20:53)
[2021-10-15] MEDS: zolpidem 5mg tablet PO SCH (20:55)
[2021-10-15 22:00] VITALS: BP 154/77
[2021-10-16 02:00] VITALS: BP 130/59
[2021-10-16] MEDS: HYDROcodone/acetaminophen 5mg/325mg tablet PO PRN ×2 (02:33→12:46)
[2021-10-16] MEDS: normal saline 1000ml 1,000 ML IV SCH (05:00)
--- NOTE | 2021-10-16 06:25 | NUR ---
Patient in room PCU 3015. I have received report from Kim SONI and had the opportunity to ask questions and assume patient care.
[2021-10-16 06:40] LABS: BASOPHILS % (AUTO) 0.2 % (0-1); EOSINOPHILS # (AUTO) 0.1 X10'3 (0-0.9); EOSINOPHILS % (AUTO) 1.8 % (0-6); HEMATOCRIT 31.9 % (35.0-45.0); HEMOGLOBIN 11.3 g/dl (12.0-16.0); LYMPHOCYTES # (AUTO) 1.3 X10'3 (1.1-4.8); LYMPHOCYTES % (AUTO) 17.8 % (21-51); MEAN CORPUSCULAR HEMOGLOBIN 34.6 PG (27.0-31.0); MEAN CORPUSCULAR HGB CONC 35.5 g/dL (33.0-36.5); MEAN CORPUSCULAR VOLUME 97.4 FL (78-98); MEAN PLATELET VOLUME 7.5 FL (7.4-10.4); MONOCYTES # (AUTO) 0.6 X10'3 (0-0.9); MONOCYTES % (AUTO) 7.9 % (2-12); NEUTROPHILS # (AUTO) 5.2 X10'3 (1.8-7.7); NEUTROPHILS % (AUTO) 72.3 % (42-75); PLATELET COUNT 230 X10'3 (140-440); RED BLOOD COUNT 3.27 X10'6 (4.20-5.60); RED CELL DISTRIBUTION WIDTH 11.9 % (11.5-14.5); WHITE BLOOD COUNT 7.2 X10'3 (4.5-11.0)
[2021-10-16 06:48] VITALS: BP 205/81
[2021-10-16 06:59] LABS: ALANINE AMINOTRANSFERASE 38 U/L (12-78); ALBUMIN 2.6 G/DL (3.4-5.0); ALBUMIN/GLOBULIN RATIO 0.8 (1.1-1.5); ALKALINE PHOSPHATASE 86 IU/L (46-116); ANION GAP 8 (8-16); ASPARTATE AMINO TRANSFERASE 31 U/L (10-37); BILIRUBIN,TOTAL 0.4 MG/DL (0.1-1.0); BLOOD UREA NITROGEN 15 MG/DL (7-18); BUN/CREATININE RATIO 25.4 (6.6-38.0); CHLORIDE 100 MMOL/L (99-107); CREATININE 0.59 MG/DL (0.40-0.90); GLUCOSE 102 MG/DL (70-104); MAGNESIUM 1.7 MG/DL (1.5-2.4); POTASSIUM 3.4 MMOL/L (3.5-5.1); SODIUM 134 MMOL/L (135-145); TOTAL CARBON DIOXIDE 26.1 MMOL/L (24-32); TOTAL PROTEIN 5.9 G/DL (6.4-8.2); eGFR > 90 ML/MIN
[2021-10-16] MEDS: amiodarone 200mg tablet PO SCH (07:45)
[2021-10-16] MEDS: aspirin 81mg, enteric-coated 1 TAB TABLET.DR PO SCH (07:45)
[2021-10-16] MEDS: apixaban 5mg tablet PO SCH (07:45)
[2021-10-16] MEDS: docusate sod 100mg capsule PO SCH (07:46)
[2021-10-16] MEDS: oxybutynin 5mg tablet PO SCH (07:46)
[2021-10-16] MEDS: metoprolol tartrate 25mg tablet PO SCH (07:46)
[2021-10-16] MEDS: K and/or MAG REPLACEMENT MC SCH (08:00)
--- NOTE | 2021-10-16 08:59 | NUR ---
[facility] 5441 Re: 3011y Adriana Patient has possible right scaphoid fracture, Dr. Heller requesting for immobilization of area, thanks Manny Addendum: 10/16/21 at 0900 by Chandler Bess RN This message sent to [employer] at this time.
[2021-10-16 11:00] VITALS: BP 159/76
--- NOTE | 2021-10-16 14:13 | NUR ---
Attempted to call report to [facility] at this time, to no avail.
--- NOTE | 2021-10-16 14:44 | NUR ---
patient discharged to [facility] at this time, all questions answered in report with Corinne.
== END 2021-10-16 14:30 | DRG 65 ==
LOC: ER 16:14 → ED HOLD 17:44 → EDBEDREQ 20:44 → PCU 3S 10-13 16:00
PROVIDERS: ADMIT Family Medicine; ATTEND Family Medicine
PROC: B3251ZZ Computerized Tomography (CT Scan) of Bilateral Common Carotid Arteries using Low Osmolar Contrast (ICD-10-PCS; principal; 2021-10-12)
PROC: B32G1ZZ Computerized Tomography (CT Scan) of Bilateral Vertebral Arteries using Low Osmolar Contrast (ICD-10-PCS; 2021-10-12)
PROC: B32R1ZZ Computerized Tomography (CT Scan) of Intracranial Arteries using Low Osmolar Contrast (ICD-10-PCS; 2021-10-12)
PROC: B3281ZZ Computerized Tomography (CT Scan) of Bilateral Internal Carotid Arteries using Low Osmolar Contrast (ICD-10-PCS; 2021-10-12)
DX: I63.89 Other cerebral infarction (principal); E87.1 Hypo-osmolality and hyponatremia; G81.91 Hemiplegia, unspecified affecting right dominant side; Z20.822 Contact with and (suspected) exposure to COVID-19; R29.6 Repeated falls; E87.6 Hypokalemia; I25.10 Atherosclerotic heart disease of native coronary artery without angina pectoris; I48.91 Unspecified atrial fibrillation; Z96.619 Presence of unspecified artificial shoulder joint; M25.521 Pain in right elbow; R29.711 NIHSS score 11; M25.531 Pain in right wrist; I50.9 Heart failure, unspecified; E78.00 Pure hypercholesterolemia, unspecified; G40.909 Epilepsy, unspecified, not intractable, without status epilepticus; W18.39XA Other fall on same level, initial encounter; I11.0 Hypertensive heart disease with heart failure; I25.2 Old myocardial infarction; Z85.3 Personal history of malignant neoplasm of breast; Z85.118 Personal history of other malignant neoplasm of bronchus and lung; Z86.73 Personal history of transient ischemic attack (TIA), and cerebral infarction without residual deficits; Z87.891 Personal history of nicotine dependence; Z90.710 Acquired absence of both cervix and uterus; Z95.1 Presence of aortocoronary bypass graft; Z95.5 Presence of coronary angioplasty implant and graft; Z88.8 Allergy status to other drugs, medicaments and biological substances; Z79.899 Other long term (current) drug therapy; Z79.82 Long term (current) use of aspirin; Y93.89 Activity, other specified; Y92.89 Other specified places as the place of occurrence of the external cause; Y99.8 Other external cause status; S62.001A Unspecified fracture of navicular [scaphoid] bone of right wrist, initial encounter for closed fracture
CPT/HCPCS: 36415; 70450; 70496; 70498; 70551; 71045; 73090; 73110; 80053; 80061; 81001; 81003; 83735; 84550; 85025; 85610; 85730; 86885; 86900; 86901; 87811; 93005; 93308; 97110; 97162; 97530; 99284; 99291; A6250; G0378; J0360; J2270; J2405; J3490; J7030; Q9967

== ENCOUNTER 2021-11-20 20:24 | Emergency (ER) | payer MEDICARE ==
[~2021-11-20] VITALS: Ht 157.5 cm; Wt 81.8 kg
[~2021-11-20 20:24] MED LIST changes: +AMIO200T61 PO; -AMIO200T67 PO; -APIX2.5T PO; +APIX5TAB3 PO; -CLOP75TA34 PO; -FURO-150 PO; +LOP25T PO; -METO50TA16 PO; +POTA-192 PO; -POTA10TA37 PO
[2021-11-20 21:02] LABS: BASOPHILS % (AUTO) 0.3 % (0-1); EOSINOPHILS # (AUTO) 0.1 X10'3 (0-0.9); EOSINOPHILS % (AUTO) 1.4 % (0-6); HEMATOCRIT 34.6 % (35.0-45.0); HEMOGLOBIN 11.7 g/dl (12.0-16.0); LYMPHOCYTES # (AUTO) 1.2 X10'3 (1.1-4.8); LYMPHOCYTES % (AUTO) 15.6 % (21-51); MEAN CORPUSCULAR HEMOGLOBIN 33.6 PG (27.0-31.0); MEAN CORPUSCULAR HGB CONC 33.9 g/dL (33.0-36.5); MEAN CORPUSCULAR VOLUME 98.9 FL (78-98); MEAN PLATELET VOLUME 7.1 FL (7.4-10.4); MONOCYTES # (AUTO) 0.4 X10'3 (0-0.9); MONOCYTES % (AUTO) 5.8 % (2-12); NEUTROPHILS # (AUTO) 5.8 X10'3 (1.8-7.7); NEUTROPHILS % (AUTO) 76.9 % (42-75); PLATELET COUNT 249 X10'3 (140-440); RED BLOOD COUNT 3.49 X10'6 (4.20-5.60); RED CELL DISTRIBUTION WIDTH 12.5 % (11.5-14.5); WHITE BLOOD COUNT 7.5 X10'3 (4.5-11.0)
[2021-11-20 21:07] LABS: CLARITY,URINE CLOUDY (Clear); COLOR,URINE YELLOW (Yellow); GLUCOSE, URINE NEGATIVE (Neg); KETONES,URINE NEGATIVE (Neg); LEUKOCYTE ESTERASE ,URINE MODERATE (Neg); NITRITES, URINE POSITIVE (Neg); OCCULT BLOOD,URINE MODERATE (Neg); PROTEIN,URINE 30 mg/dl (Neg); UROBILINOGEN,URINE 0.2 E.U/dL (0.2-1.0)
[2021-11-20 21:18] LABS: ALANINE AMINOTRANSFERASE 100 U/L (12-78); ALBUMIN 2.9 G/DL (3.4-5.0); ALBUMIN/GLOBULIN RATIO 0.8 (1.1-1.5); ALKALINE PHOSPHATASE 160 IU/L (46-116); ANION GAP 10 (8-16); ASPARTATE AMINO TRANSFERASE 83 U/L (10-37); BILIRUBIN,TOTAL 0.2 MG/DL (0.1-1.0); BLOOD UREA NITROGEN 19 MG/DL (7-18); BUN/CREATININE RATIO 28.8 (6.6-38.0); CALCIUM 8.3 MG/DL (8.5-10.1); CHLORIDE 98 MMOL/L (99-107); CREATININE 0.66 MG/DL (0.40-0.90); GLUCOSE 187 MG/DL (70-104); POTASSIUM 4.3 MMOL/L (3.5-5.1); SODIUM 131 MMOL/L (135-145); TOTAL CARBON DIOXIDE 23.4 MMOL/L (24-32); TOTAL PROTEIN 6.7 G/DL (6.4-8.2); eGFR 85 ML/MIN
[2021-11-20 21:19] LABS: BURR CELLS 2+; PLATELET ESTIMATE NORMAL
[2021-11-20 21:20] LABS: POIKILOCYTOSIS 2+
[2021-11-20 21:21] LABS: UA COLLECTION TYPE STRAIGHT CATH
[2021-11-20 21:22] LABS: BACTERIA,URINE 3+ /HPF (Neg); RBC,URINE 0-2 /HPF (0-2); SQUAMOUS EPITHELIAL CELL,UR NONE SEEN /LPF (FEW); WBC,URINE TNTC /HPF (0-4)
[2021-11-20] MEDS ORDERED: normal saline 1000ML IV soln IVB ONE (22:20)
[2021-11-20] MEDS ORDERED: CefTRIAXone 2gm/D5W 50ml BAG 50 ML IV ONE (22:20)
[2021-11-20] MEDS ORDERED: CEPH-585 PO (23:05)
[2021-11-20] MEDS ORDERED: morphine 2 MG/ML inj. syringe IV ONE (23:30)
[2021-11-20] MEDS ORDERED: iohexol 350MG/ML 100ml bottle IV ONE (23:34)
--- NOTE | 2021-11-20 23:53 | NUR ---
Patient to CT
[2021-11-21 01:48] VITALS: BP 187/80
== END 2021-11-21 03:24 | disposition home or self-care (01) ==
LOC: ER 20:24
DX: N39.0 Urinary tract infection, site not specified (principal); I11.0 Hypertensive heart disease with heart failure; I50.9 Heart failure, unspecified; E78.00 Pure hypercholesterolemia, unspecified; Z88.8 Allergy status to other drugs, medicaments and biological substances; Z90.710 Acquired absence of both cervix and uterus
CPT/HCPCS: 36415; 74177; 80053; 81001; 84145; 85008; 85025; 87088; 96365; 96375; 99285; C1758; J0696; J2270; J7030; Q9967; 87077; 87186

== ENCOUNTER 2021-12-06 11:36 | Emergency (ER) | payer MEDICARE ==
[~2021-12-06] VITALS: Ht 157.5 cm; Wt 70.9 kg
[~2021-12-06 11:36] MED LIST changes: +CEPH-585 PO
[2021-12-06 12:13] LABS: BASOPHILS % (AUTO) 0.5 % (0-1); EOSINOPHILS % (AUTO) 0.6 % (0-6); HEMATOCRIT 32.4 % (35.0-45.0); HEMOGLOBIN 11.2 g/dl (12.0-16.0); LYMPHOCYTES # (AUTO) 1.2 X10'3 (1.1-4.8); LYMPHOCYTES % (AUTO) 17.6 % (21-51); MEAN CORPUSCULAR HGB CONC 34.6 g/dL (33.0-36.5); MEAN CORPUSCULAR VOLUME 98.2 FL (78-98); MEAN PLATELET VOLUME 7.1 FL (7.4-10.4); MONOCYTES # (AUTO) 0.6 X10'3 (0-0.9); NEUTROPHILS # (AUTO) 5.1 X10'3 (1.8-7.7); NEUTROPHILS % (AUTO) 73.3 % (42-75); PLATELET COUNT 302 X10'3 (140-440); RED CELL DISTRIBUTION WIDTH 12.7 % (11.5-14.5)
[2021-12-06 12:27] LABS: ALANINE AMINOTRANSFERASE 103 U/L (12-78); ALBUMIN 3.1 G/DL (3.4-5.0); ALKALINE PHOSPHATASE 140 IU/L (46-116); ANION GAP 6 (8-16); ASPARTATE AMINO TRANSFERASE 77 U/L (10-37); BILIRUBIN,TOTAL 0.3 MG/DL (0.1-1.0); BLOOD UREA NITROGEN 20 MG/DL (7-18); BUN/CREATININE RATIO 28.2 (6.6-38.0); CALCIUM 8.3 MG/DL (8.5-10.1); CHLORIDE 94 MMOL/L (99-107); CREATININE 0.71 MG/DL (0.40-0.90); GLUCOSE 142 MG/DL (70-104); POTASSIUM 4.2 MMOL/L (3.5-5.1); SODIUM 128 MMOL/L (135-145); TOTAL CARBON DIOXIDE 28.1 MMOL/L (24-32); TOTAL PROTEIN 6.3 G/DL (6.4-8.2); eGFR 78 ML/MIN
[2021-12-06 13:43] VITALS: BP 167/72
== END 2021-12-06 15:31 | disposition home or self-care (01) ==
LOC: ER 11:37
DX: I20.9 Angina pectoris, unspecified (principal); I11.0 Hypertensive heart disease with heart failure; I50.9 Heart failure, unspecified; E78.00 Pure hypercholesterolemia, unspecified; G89.29 Other chronic pain; M54.50 Low back pain, unspecified; Z86.73 Personal history of transient ischemic attack (TIA), and cerebral infarction without residual deficits; Z88.8 Allergy status to other drugs, medicaments and biological substances; Z90.710 Acquired absence of both cervix and uterus
CPT/HCPCS: 36415; 71045; 80053; 83880; 84484; 85025; 93005; 99285

== ENCOUNTER 2022-03-25 15:09 | Emergency (ER) | payer MEDICARE, MEDICAID ==
[~2022-03-25] VITALS: Ht 149.9 cm; Wt 50.0 kg
[2022-03-25 16:12] LABS: CLARITY,URINE CLOUDY (Clear); COLOR,URINE YELLOW (Yellow); GLUCOSE, URINE NEGATIVE (Neg); KETONES,URINE NEGATIVE (Neg); LEUKOCYTE ESTERASE ,URINE MODERATE (Neg); NITRITES, URINE POSITIVE (Neg); OCCULT BLOOD,URINE NEGATIVE (Neg); PROTEIN,URINE NEGATIVE (Neg); UROBILINOGEN,URINE 0.2 E.U/dL (0.2-1.0)
[2022-03-25 16:13] LABS: UA COLLECTION TYPE STRAIGHT CATH
[2022-03-25 16:14] LABS: BASOPHILS % (AUTO) 0.5 % (0-1); EOSINOPHILS # (AUTO) 0.1 X10'3 (0-0.9); EOSINOPHILS % (AUTO) 1.7 % (0-6); HEMATOCRIT 32.1 % (35.0-45.0); LYMPHOCYTES # (AUTO) 1.2 X10'3 (1.1-4.8); LYMPHOCYTES % (AUTO) 19.2 % (21-51); MEAN CORPUSCULAR HEMOGLOBIN 36.7 PG (27.0-31.0); MEAN CORPUSCULAR HGB CONC 34.4 g/dL (33.0-36.5); MEAN CORPUSCULAR VOLUME 106.5 FL (78-98); MEAN PLATELET VOLUME 7.3 FL (7.4-10.4); MONOCYTES # (AUTO) 0.4 X10'3 (0-0.9); MONOCYTES % (AUTO) 6.8 % (2-12); NEUTROPHILS # (AUTO) 4.5 X10'3 (1.8-7.7); NEUTROPHILS % (AUTO) 71.8 % (42-75); PLATELET COUNT 232 X10'3 (140-440); RED BLOOD COUNT 3.01 X10'6 (4.20-5.60); RED CELL DISTRIBUTION WIDTH 13.1 % (11.5-14.5); WHITE BLOOD COUNT 6.3 X10'3 (4.5-11.0)
[2022-03-25 16:18] LABS: BACTERIA,URINE 4+ /HPF (Neg); MUCUS STRANDS NONE SEEN /LPF (Neg); RBC,URINE 0-2 /HPF (0-2); SQUAMOUS EPITHELIAL CELL,UR NONE SEEN /LPF (FEW); WBC,URINE 50-100 /HPF (0-4)
[2022-03-25 16:19] LABS: CAL OXALATE CRYSTALS 1+ /HPF (NEGATIVE)
[2022-03-25] MEDS ORDERED: CefTRIAXone 2gm/D5W 50ml BAG 50 ML IV ONE (16:30)
[2022-03-25 16:37] LABS: ALANINE AMINOTRANSFERASE 39 U/L (12-78); ALBUMIN 3.5 G/DL (3.4-5.0); ALBUMIN/GLOBULIN RATIO 1.1 (1.1-1.5); ALKALINE PHOSPHATASE 104 IU/L (46-116); ANION GAP 9 (8-16); ASPARTATE AMINO TRANSFERASE 30 U/L (10-37); BILIRUBIN,TOTAL 0.2 MG/DL (0.1-1.0); BLOOD UREA NITROGEN 22 MG/DL (7-18); BUN/CREATININE RATIO 24.7 (6.6-38.0); CALCIUM 8.5 MG/DL (8.5-10.1); CHLORIDE 99 MMOL/L (99-107); CREATININE 0.89 MG/DL (0.40-0.90); GLUCOSE 129 MG/DL (70-104); MAGNESIUM 1.9 MG/DL (1.5-2.4); POTASSIUM 4.3 MMOL/L (3.5-5.1); SODIUM 133 MMOL/L (135-145); TOTAL CARBON DIOXIDE 25.3 MMOL/L (24-32); TOTAL PROTEIN 6.6 G/DL (6.4-8.2); eGFR 60 ML/MIN
[2022-03-25 16:57] VITALS: BP 129/63
[2022-03-25] MEDS ORDERED: LINE600T11 PO (17:10)
--- NOTE | 2022-03-25 17:34 | NUR ---
[facility] does not have drivers today, [facility] didn't answer the phone... left a message
--- NOTE | 2022-03-25 17:38 | NUR ---
called [facility] to figure out transport, they are unsure of how their patients get back to their facility at this time. requested for us to call back in 10 minutes
--- NOTE | 2022-03-25 17:47 | NUR ---
[facility]
[2022-03-26 09:01] LABS: C DIFF SPECIMEN=DIARRHEA? ACCEPTABLE; C DIFFICILE TOXINS A&B NEGATIVE (Neg)
== END 2022-03-25 18:47 | disposition home or self-care (01) ==
LOC: ER 15:10
DX: N39.0 Urinary tract infection, site not specified (principal); R41.82 Altered mental status, unspecified; R41.0 Disorientation, unspecified; E78.00 Pure hypercholesterolemia, unspecified; G89.29 Other chronic pain; M54.9 Dorsalgia, unspecified; Z90.49 Acquired absence of other specified parts of digestive tract; Z98.890 Other specified postprocedural states; Z88.8 Allergy status to other drugs, medicaments and biological substances; Z79.899 Other long term (current) drug therapy; Z79.1 Long term (current) use of non-steroidal anti-inflammatories (NSAID); Z79.2 Long term (current) use of antibiotics
CPT/HCPCS: 36415; 70450; 71045; 80053; 81001; 83605; 83735; 83880; 84145; 85025; 87077; 87088; 87186; 87324; 87449; 93005; 96365; 99285; J0696; A4353

== ENCOUNTER 2023-12-24 12:48 | Inpatient (IN) | payer MEDICARE, MEDICAID ==
[2023-12-24] VITALS (11 sets, daily range): BP systolic 133–188; BP diastolic 40–80; PULSE 63–72; RESP 12–25; TEMP 97.1–98.5; O2SAT 98
[~2023-12-24] VITALS: Ht 162.6 cm; Wt 75.0 kg
[~2023-12-24 12:48] MED LIST changes: +AMI200T PO; -AMIO200T61 PO; -CEPH-585 PO
[2023-12-24 14:29] LABS: ALANINE AMINOTRANSFERASE 9 U/L (12-78); ALBUMIN 2.5 G/DL (3.4-5.0); ALKALINE PHOSPHATASE 93 IU/L (46-116); ANION GAP 10 (8-16); BILIRUBIN,TOTAL 0.3 MG/DL (0.1-1.0); BLOOD UREA NITROGEN 45 MG/DL (7-18); BUN/CREATININE RATIO 95.7 (10.0-20.0); CALCIUM 7.8 MG/DL (8.5-10.1); CHLORIDE 113 MMOL/L (99-107); CREATININE 0.47 MG/DL (0.40-0.90); GLUCOSE 144 MG/DL (70-104); SODIUM 146 MMOL/L (135-145); TOTAL CARBON DIOXIDE 23.5 MMOL/L (24-32); TOTAL PROTEIN 5.1 G/DL (6.4-8.2); eCRCL 73 ML/MIN; eGFR > 90 ML/MIN
[2023-12-24 14:30] LABS: ASPARTATE AMINO TRANSFERASE 30 U/L (10-37); POTASSIUM 4.1 MMOL/L (3.5-5.1)
[2023-12-24 15:25] LABS: EOSINOPHILS % (AUTO) 0.6 % (0-6); MEAN CORPUSCULAR HGB CONC 31.1 g/dL (33.0-36.5); MONOCYTES # (AUTO) 0.3 X10'3 (0-0.9)
[2023-12-24 15:28] LABS: BASOPHILS % (AUTO) 0.5 % (0-1); LYMPHOCYTES # (AUTO) 0.7 X10'3 (1.1-4.8); LYMPHOCYTES % (AUTO) 12.7 % (21-51); MEAN CORPUSCULAR HEMOGLOBIN 33.6 PG (27.0-31.0); MEAN CORPUSCULAR VOLUME 108.3 FL (78-98); MEAN PLATELET VOLUME 8.3 FL (7.4-10.4); MONOCYTES % (AUTO) 4.9 % (2-12); NEUTROPHILS # (AUTO) 4.2 X10'3 (1.8-7.7); NEUTROPHILS % (AUTO) 81.3 % (42-75); PLATELET COUNT 247 X10'3 (140-440); RED BLOOD COUNT 1.11 X10'6 (4.20-5.60); RED CELL DISTRIBUTION WIDTH 24.1 % (11.5-14.5); WHITE BLOOD COUNT 5.1 X10'3 (4.5-11.0)
[2023-12-24 15:32] LABS: HEMOGLOBIN 3.7 g/dl (12.0-16.0)
[2023-12-24 16:09] LABS: ANISOCYTOSIS 3+; PLATELET ESTIMATE NORMAL
[2023-12-24 16:10] LABS: HYPOCHROMASIA 1+
[2023-12-24 16:11] LABS: BURR CELLS FEW; POLYCHROMASIA 2+; SCHISTOCYTES FEW; TEAR DROP CELLS 1+
[2023-12-24] MEDS ORDERED: mag hydrox/Alum hydrox/simeth 30ml oral suspension PO PRN (17:30)
[2023-12-24] MEDS ORDERED: morphine 2 MG/ML inj. syringe IV PRN (17:30)
[2023-12-24] MEDS ORDERED: magnesium sulf-water 2g/50mL 50 ML IV PRN (17:30)
[2023-12-24] MEDS ORDERED: magnesium sulf-water 4G/100mL 100 ML IV PRN (17:30)
[2023-12-24] MEDS ORDERED: potassium Cl 20 mEq SR tablet PO PRN ×2 (17:30)
[2023-12-24] MEDS ORDERED: magnesium Cl slow-release 64mg tablet PO PRN (17:30)
[2023-12-24] MEDS ORDERED: magnesium hydroxide 30ml (MOM) UD suspension PO PRN (17:30)
[2023-12-24] MEDS: pantoprazole 40 MG vial IV ONE (18:36)
[2023-12-24] MEDS: pantoprazole 40MG/NS 100ML BAG 100 ML IV ONE (18:36)
[2023-12-24 19:05] LABS: PRO BRAIN NATRIURETIC PEPTIDE 5783 PG/ML (0-450)
[2023-12-24 19:26] LABS: BASOPHILS % (AUTO) 0.5 % (0-1); EOSINOPHILS % (AUTO) 0.2 % (0-6); LYMPHOCYTES # (AUTO) 0.4 X10'3 (1.1-4.8); LYMPHOCYTES % (AUTO) 9.2 % (21-51); MEAN CORPUSCULAR HEMOGLOBIN 33.2 PG (27.0-31.0); MEAN CORPUSCULAR HGB CONC 31.9 g/dL (33.0-36.5); MEAN CORPUSCULAR VOLUME 104.1 FL (78-98); MONOCYTES # (AUTO) 0.2 X10'3 (0-0.9); MONOCYTES % (AUTO) 4.2 % (2-12); NEUTROPHILS # (AUTO) 4.2 X10'3 (1.8-7.7); NEUTROPHILS % (AUTO) 85.9 % (42-75); PLATELET COUNT 261 X10'3 (140-440); RED BLOOD COUNT 1.34 X10'6 (4.20-5.60); RED CELL DISTRIBUTION WIDTH 22.3 % (11.5-14.5); WHITE BLOOD COUNT 4.9 X10'3 (4.5-11.0)
[2023-12-24 19:38] LABS: HEMATOCRIT 13.9 % (35.0-45.0); HEMOGLOBIN 4.4 g/dl (12.0-16.0)
[2023-12-24] MEDS: PERFLUTREN PROTEIN-A MICROSPHR (Optison) 0.22 MG/ML 3ML VIAL IV ONE (19:40)
[2023-12-24 19:41] LABS: % IRON SATURATION 14 % (11-46); IRON 30 UG/DL (49-151); TOTAL IRON BINDING CAPACITY 215 UG/DL (259-388)
[2023-12-24] MEDS: docusate sod 100mg capsule PO SCH (19:41)
[2023-12-24] MEDS: K and/or MAG REPLACEMENT MC SCH (20:00)
[2023-12-25] VITALS (11 sets, daily range): BP systolic 132–188; BP diastolic 62–82; PULSE 63–78; RESP 12–20; TEMP 96.9–99.1; O2SAT 90–99
[2023-12-25] MEDS: ondansetron/PF 4mg/2ml inj IV PRN (00:42)
[2023-12-25] MEDS: acetaminophen 325mg tablet PO PRN (00:44)
[2023-12-25] MEDS: furosemide 20 MG/2 ML vial IV ONE (00:55)
[2023-12-25] MEDS: metoprolol succinate 25mg (24-HOUR) SR. Tablet PO SCH (01:32)
[2023-12-25 02:47] LABS: ALANINE AMINOTRANSFERASE 12 U/L (12-78); ALBUMIN 2.7 G/DL (3.4-5.0); ALKALINE PHOSPHATASE 100 IU/L (46-116); ANION GAP 9 (8-16); ASPARTATE AMINO TRANSFERASE 18 U/L (10-37); BILIRUBIN,TOTAL 0.5 MG/DL (0.1-1.0); BLOOD UREA NITROGEN 34 MG/DL (7-18); BUN/CREATININE RATIO 69.4 (10.0-20.0); CALCIUM 7.6 MG/DL (8.5-10.1); CHLORIDE 110 MMOL/L (99-107); CREATININE 0.49 MG/DL (0.40-0.90); GLUCOSE 126 MG/DL (70-104); MAGNESIUM 1.9 MG/DL (1.5-2.4); SODIUM 143 MMOL/L (135-145); TOTAL CARBON DIOXIDE 23.6 MMOL/L (24-32); TOTAL PROTEIN 5.4 G/DL (6.4-8.2); eCRCL 70 ML/MIN; eGFR > 90 ML/MIN
[2023-12-25 02:50] LABS: BASOPHILS % (AUTO) 0.3 % (0-1); EOSINOPHILS % (AUTO) 0.3 % (0-6); HEMATOCRIT 26.4 % (35.0-45.0); HEMOGLOBIN 8.7 g/dl (12.0-16.0); LYMPHOCYTES # (AUTO) 0.8 X10'3 (1.1-4.8); LYMPHOCYTES % (AUTO) 11.5 % (21-51); MEAN CORPUSCULAR HEMOGLOBIN 31.3 PG (27.0-31.0); MEAN CORPUSCULAR HGB CONC 32.9 g/dL (33.0-36.5); MEAN CORPUSCULAR VOLUME 95.2 FL (78-98); MEAN PLATELET VOLUME 8.6 FL (7.4-10.4); MONOCYTES # (AUTO) 0.5 X10'3 (0-0.9); MONOCYTES % (AUTO) 7.4 % (2-12); NEUTROPHILS # (AUTO) 5.8 X10'3 (1.8-7.7); NEUTROPHILS % (AUTO) 80.5 % (42-75); PLATELET COUNT 225 X10'3 (140-440); RED BLOOD COUNT 2.77 X10'6 (4.20-5.60); RED CELL DISTRIBUTION WIDTH 15.2 % (11.5-14.5); WHITE BLOOD COUNT 7.2 X10'3 (4.5-11.0)
[2023-12-25 02:54] LABS: POTASSIUM 2.8 MMOL/L (3.5-5.1)
[2023-12-25] MEDS: potassium Cl 40MEQ/1/2NS 520ml 520 ML IV PRN (04:21)
[2023-12-25] MEDS ORDERED: metoprolol succinate 25mg (24-HOUR) SR. Tablet PO SCH (08:00)
[2023-12-25] MEDS: folic acid 1mg tablet PO SCH (09:42)
[2023-12-25] MEDS: cyanocobalamin 500mcg tablet PO SCH (09:43)
[2023-12-25 10:04] LABS: BASOPHILS % (AUTO) 0.3 % (0-1); EOSINOPHILS # (AUTO) 0.1 X10'3 (0-0.9); EOSINOPHILS % (AUTO) 1.3 % (0-6); HEMATOCRIT 25.5 % (35.0-45.0); HEMOGLOBIN 8.2 g/dl (12.0-16.0); LYMPHOCYTES # (AUTO) 0.7 X10'3 (1.1-4.8); LYMPHOCYTES % (AUTO) 10.7 % (21-51); MEAN CORPUSCULAR HEMOGLOBIN 30.7 PG (27.0-31.0); MEAN CORPUSCULAR HGB CONC 32.3 g/dL (33.0-36.5); MEAN PLATELET VOLUME 8.5 FL (7.4-10.4); MONOCYTES # (AUTO) 0.5 X10'3 (0-0.9); MONOCYTES % (AUTO) 7.4 % (2-12); NEUTROPHILS # (AUTO) 5.2 X10'3 (1.8-7.7); NEUTROPHILS % (AUTO) 80.3 % (42-75); PLATELET COUNT 239 X10'3 (140-440); RED BLOOD COUNT 2.69 X10'6 (4.20-5.60); RED CELL DISTRIBUTION WIDTH 15.6 % (11.5-14.5); WHITE BLOOD COUNT 6.5 X10'3 (4.5-11.0)
[2023-12-25 10:11] LABS: ALBUMIN 2.5 G/DL (3.4-5.0); ANION GAP 6 (8-16); BLOOD UREA NITROGEN 32 MG/DL (7-18); BUN/CREATININE RATIO 74.4 (10.0-20.0); CALCIUM 7.5 MG/DL (8.5-10.1); CHLORIDE 110 MMOL/L (99-107); CREATININE 0.43 MG/DL (0.40-0.90); GLUCOSE 123 MG/DL (70-104); POTASSIUM 3.3 MMOL/L (3.5-5.1); SODIUM 142 MMOL/L (135-145); TOTAL CARBON DIOXIDE 25.9 MMOL/L (24-32); eCRCL 80 ML/MIN; eGFR > 90 ML/MIN
[2023-12-25] MEDS: iron sucrose complex injection 300 MG in normal saline 250ml IV soln 250 ML IV SCH (11:17)
[2023-12-25] MEDS ORDERED: FERR325T28 PO (12:35)
[2023-12-25] MEDS ORDERED: CARB-268 EACHEYE (12:35)
[2023-12-25] MEDS ORDERED: AMLO5TAB16 PO (12:35)
[2023-12-25] MEDS ORDERED: DOCU-148 PO (12:35)
[2023-12-25] MEDS ORDERED: HYDR-3972 PO (12:35)
[2023-12-25] MEDS ORDERED: LORA-268 PO (12:35)
[2023-12-25] MEDS ORDERED: FLUT16SP2 BOTHNARES (12:35)
[2023-12-25] MEDS ORDERED: METO-384 PO (12:35)
[2023-12-25] MEDS ORDERED: POLY119P2 PO (12:35)
[2023-12-25] MEDS ORDERED: RIVA15TA PO (12:35)
[2023-12-25] MEDS ORDERED: LISI10TA27 PO (12:35)
[2023-12-25] MEDS ORDERED: POTA-197 PO (12:35)
[2023-12-25] MEDS ORDERED: DICL20GE TD (12:35)
[2023-12-25 15:11] LABS: HEMATOCRIT 26.1 % (35.0-45.0); HEMOGLOBIN 8.5 g/dl (12.0-16.0); MEAN CORPUSCULAR HEMOGLOBIN 31.1 PG (27.0-31.0); MEAN CORPUSCULAR HGB CONC 32.6 g/dL (33.0-36.5); MEAN CORPUSCULAR VOLUME 95.4 FL (78-98); MEAN PLATELET VOLUME 8.7 FL (7.4-10.4); PLATELET COUNT 239 X10'3 (140-440); RED BLOOD COUNT 2.73 X10'6 (4.20-5.60); RED CELL DISTRIBUTION WIDTH 15.8 % (11.5-14.5); WHITE BLOOD COUNT 8.5 X10'3 (4.5-11.0)
[2023-12-25] MEDS ORDERED: HYDR-3973 PO (17:46)
[2023-12-25] MEDS ORDERED: LORazepam 0.5 MG tablet PO PRN (18:55)
[2023-12-25] MEDS ORDERED: nitroGLYCERIN 0.4mg SUBLingual tab SL PRN (18:55)
[2023-12-25 19:43] LABS: ALANINE AMINOTRANSFERASE 30 U/L (12-78); ALBUMIN 2.6 G/DL (3.4-5.0); ALKALINE PHOSPHATASE 145 IU/L (46-116); ASPARTATE AMINO TRANSFERASE 55 U/L (10-37); BILIRUBIN,DIRECT 0.2 MG/DL (0-0.3); BILIRUBIN,TOTAL 0.5 MG/DL (0.1-1.0); FREE T4 (FREE THYROXINE) 0.62 NG/DL (0.73-1.40); PHENYTOIN (DILANTIN) 1.4 UG/ML (10.0-20.0); POTASSIUM 3.6 MMOL/L (3.5-5.1); THYROID STIMULATING HORMONE 9.38 ulU/ml (0.34-4.50); TOTAL PROTEIN 5.2 G/DL (6.4-8.2)
[2023-12-25] MEDS: pantoprazole 40 MG vial IV SCH (20:17)
[2023-12-25] MEDS: atorvastatin 20mg tablet PO SCH (20:18)
[2023-12-25] MEDS: amiodarone 200mg tablet PO SCH (20:18)
[2023-12-25] MEDS: phenytoin sod ER 100mg capsule PO SCH (20:29)
[2023-12-25 22:22] LABS: APTT 26 SECONDS (22-32); INR 1.1 INR; PROTHROMBIN TIME 11.3 SECONDS (9.0-12.0)
[2023-12-25 22:54] LABS: BASOPHILS % (AUTO) 0.1 % (0-1); EOSINOPHILS % (AUTO) 0.1 % (0-6); HEMATOCRIT 27.5 % (35.0-45.0); LYMPHOCYTES # (AUTO) 0.8 X10'3 (1.1-4.8); LYMPHOCYTES % (AUTO) 8.2 % (21-51); MEAN CORPUSCULAR HEMOGLOBIN 31.4 PG (27.0-31.0); MEAN CORPUSCULAR HGB CONC 32.8 g/dL (33.0-36.5); MEAN CORPUSCULAR VOLUME 95.8 FL (78-98); MEAN PLATELET VOLUME 8.8 FL (7.4-10.4); MONOCYTES # (AUTO) 0.5 X10'3 (0-0.9); MONOCYTES % (AUTO) 5.3 % (2-12); NEUTROPHILS # (AUTO) 8.9 X10'3 (1.8-7.7); NEUTROPHILS % (AUTO) 86.3 % (42-75); PLATELET COUNT 237 X10'3 (140-440); RED BLOOD COUNT 2.87 X10'6 (4.20-5.60); RED CELL DISTRIBUTION WIDTH 16.5 % (11.5-14.5); WHITE BLOOD COUNT 10.3 X10'3 (4.5-11.0)
[2023-12-25 22:55] LABS: ALANINE AMINOTRANSFERASE 40 U/L (12-78); ALBUMIN 2.6 G/DL (3.4-5.0); ALBUMIN/GLOBULIN RATIO 0.9 (1.1-1.5); ALKALINE PHOSPHATASE 155 IU/L (46-116); ANION GAP 7 (8-16); ASPARTATE AMINO TRANSFERASE 74 U/L (10-37); BILIRUBIN,TOTAL 0.6 MG/DL (0.1-1.0); BLOOD UREA NITROGEN 25 MG/DL (7-18); BUN/CREATININE RATIO 53.2 (10.0-20.0); CALCIUM 7.8 MG/DL (8.5-10.1); CHLORIDE 109 MMOL/L (99-107); CREATININE 0.47 MG/DL (0.40-0.90); GLUCOSE 105 MG/DL (70-104); POTASSIUM 3.7 MMOL/L (3.5-5.1); SODIUM 140 MMOL/L (135-145); TOTAL PROTEIN 5.4 G/DL (6.4-8.2); eCRCL 70 ML/MIN; eGFR > 90 ML/MIN
[2023-12-26] MEDS: LACOSAMIDE IV ONE (00:31)
[2023-12-26] MEDS: NORMAL SALINE IV ONE (00:31)
[2023-12-26 02:00] VITALS: BP 159/62; PULSE 66; RESP 13; TEMP 98; O2SAT 99
[2023-12-26 03:58] LABS: BASOPHILS % (AUTO) 0 % (0-1); EOSINOPHILS % (AUTO) 0 % (0-6); HEMATOCRIT 23.9 % (35.0-45.0); HEMOGLOBIN 7.8 g/dl (12.0-16.0); LYMPHOCYTES # (AUTO) 0.4 X10'3 (1.1-4.8); LYMPHOCYTES % (AUTO) 4.6 % (21-51); MEAN CORPUSCULAR HEMOGLOBIN 31.6 PG (27.0-31.0); MEAN CORPUSCULAR HGB CONC 32.9 g/dL (33.0-36.5); MEAN CORPUSCULAR VOLUME 96.3 FL (78-98); MEAN PLATELET VOLUME 8.3 FL (7.4-10.4); MONOCYTES # (AUTO) 0.3 X10'3 (0-0.9); MONOCYTES % (AUTO) 3.1 % (2-12); NEUTROPHILS # (AUTO) 8.9 X10'3 (1.8-7.7); NEUTROPHILS % (AUTO) 92.3 % (42-75); PLATELET COUNT 220 X10'3 (140-440); RED BLOOD COUNT 2.48 X10'6 (4.20-5.60); WHITE BLOOD COUNT 9.6 X10'3 (4.5-11.0)
[2023-12-26 04:10] LABS: ALANINE AMINOTRANSFERASE 58 U/L (12-78); ALBUMIN 2.3 G/DL (3.4-5.0); ALBUMIN/GLOBULIN RATIO 0.9 (1.1-1.5); ALKALINE PHOSPHATASE 143 IU/L (46-116); ANION GAP 8 (8-16); ASPARTATE AMINO TRANSFERASE 80 U/L (10-37); BILIRUBIN,TOTAL 0.6 MG/DL (0.1-1.0); BLOOD UREA NITROGEN 22 MG/DL (7-18); CALCIUM 7.7 MG/DL (8.5-10.1); CHLORIDE 110 MMOL/L (99-107); CREATININE 0.44 MG/DL (0.40-0.90); GLUCOSE 126 MG/DL (70-104); MAGNESIUM 1.8 MG/DL (1.5-2.4); POTASSIUM 3.4 MMOL/L (3.5-5.1); SODIUM 141 MMOL/L (135-145); TOTAL CARBON DIOXIDE 23.3 MMOL/L (24-32); TOTAL PROTEIN 4.9 G/DL (6.4-8.2); eCRCL 75 ML/MIN; eGFR > 90 ML/MIN
[2023-12-26 06:00] VITALS: BP 159/62; PULSE 68; RESP 21; TEMP 98.6; O2SAT 100
[2023-12-26] MEDS: levoTHYROXINE 25mcg tablet PO SCH (07:00)
[2023-12-26 08:00] VITALS: RESP 21; O2SAT 100
[2023-12-26] MEDS ORDERED: metoprolol succinate 25mg (24-HOUR) SR. Tablet PO SCH (08:00)
[2023-12-26] MEDS ORDERED: lisinopril 10 MG tablet PO SCH ×2 (08:00)
[2023-12-26] MEDS: furosemide 20 MG/2 ML vial IV SCH (08:15)
[2023-12-26] MEDS: lisinopril 10 MG tablet PO SCH (08:16)
[2023-12-26] MEDS: amLODIPine 5mg tablet PO SCH (08:16)
[2023-12-26] MEDS: LACOSAMIDE 200mg/20ml inj. 200 MG in normal saline 100ml IV soln 100 ML IV SCH (08:18)
[2023-12-26 09:13] LABS: BILIRUBIN,URINE SMALL (Neg); CLARITY,URINE SLIGHTLY CLOUDY (Clear); COLOR,URINE YELLOW (Yellow); GLUCOSE, URINE NEGATIVE (Neg); KETONES,URINE 15 mg/dl (Neg); LEUKOCYTE ESTERASE ,URINE NEGATIVE (Neg); NITRITES, URINE NEGATIVE (Neg); OCCULT BLOOD,URINE SMALL (Neg); PROTEIN,URINE TRACE mg/dl (Neg); UROBILINOGEN,URINE 0.2 E.U/dL (0.2-1.0)
[2023-12-26 09:28] LABS: UA COLLECTION TYPE NON-SPECIFIED
[2023-12-26 09:30] LABS: BACTERIA,URINE 4+ /HPF (Neg); RBC,URINE NONE SEEN /HPF (0-2); SQUAMOUS EPITHELIAL CELL,UR MANY /LPF (FEW); WBC,URINE 20-30 /HPF (0-4)
[2023-12-26 11:00] VITALS: BP 165/64; PULSE 89; RESP 18; TEMP 97; O2SAT 93
[2023-12-26 15:00] VITALS: BP 152/65; PULSE 59; RESP 16; TEMP 97.5; O2SAT 96
[2023-12-26] MEDS: LORazepam 0.5 MG tablet PO PRN (15:15)
[2023-12-26] MEDS: lactose-reduced food (Ensure Enlive) - 237ml bottle PO SCH (18:00)
[2023-12-26 23:17] LABS: HEMATOCRIT 23.7 % (35.0-45.0); HEMOGLOBIN 7.8 g/dl (12.0-16.0); MEAN CORPUSCULAR HEMOGLOBIN 31.4 PG (27.0-31.0); MEAN CORPUSCULAR VOLUME 95.2 FL (78-98); MEAN PLATELET VOLUME 8.5 FL (7.4-10.4); PLATELET COUNT 203 X10'3 (140-440); RED BLOOD COUNT 2.48 X10'6 (4.20-5.60); RED CELL DISTRIBUTION WIDTH 16.9 % (11.5-14.5); WHITE BLOOD COUNT 8.7 X10'3 (4.5-11.0)
[2023-12-27 03:46] LABS: BASOPHILS % (AUTO) 0.1 % (0-1); EOSINOPHILS % (AUTO) 0.1 % (0-6); HEMATOCRIT 22.7 % (35.0-45.0); HEMOGLOBIN 7.5 g/dl (12.0-16.0); LYMPHOCYTES # (AUTO) 0.7 X10'3 (1.1-4.8); LYMPHOCYTES % (AUTO) 10.8 % (21-51); MEAN CORPUSCULAR HEMOGLOBIN 31.5 PG (27.0-31.0); MEAN CORPUSCULAR HGB CONC 32.9 g/dL (33.0-36.5); MEAN CORPUSCULAR VOLUME 95.7 FL (78-98); MEAN PLATELET VOLUME 8.4 FL (7.4-10.4); MONOCYTES # (AUTO) 0.4 X10'3 (0-0.9); MONOCYTES % (AUTO) 6.1 % (2-12); NEUTROPHILS # (AUTO) 5.6 X10'3 (1.8-7.7); NEUTROPHILS % (AUTO) 82.9 % (42-75); PLATELET COUNT 189 X10'3 (140-440); RED BLOOD COUNT 2.37 X10'6 (4.20-5.60); RED CELL DISTRIBUTION WIDTH 16.6 % (11.5-14.5); WHITE BLOOD COUNT 6.8 X10'3 (4.5-11.0)
[2023-12-27 03:59] LABS: ALANINE AMINOTRANSFERASE 54 U/L (12-78); ALBUMIN 2.3 G/DL (3.4-5.0); ALBUMIN/GLOBULIN RATIO 0.9 (1.1-1.5); ALKALINE PHOSPHATASE 135 IU/L (46-116); ANION GAP 8 (8-16); ASPARTATE AMINO TRANSFERASE 44 U/L (10-37); BILIRUBIN,TOTAL 0.5 MG/DL (0.1-1.0); BLOOD UREA NITROGEN 15 MG/DL (7-18); BUN/CREATININE RATIO 44.1 (10.0-20.0); CALCIUM 7.6 MG/DL (8.5-10.1); CHLORIDE 108 MMOL/L (99-107); CREATININE 0.34 MG/DL (0.40-0.90); GLUCOSE 87 MG/DL (70-104); MAGNESIUM 1.7 MG/DL (1.5-2.4); POTASSIUM 3.2 MMOL/L (3.5-5.1); SODIUM 141 MMOL/L (135-145); TOTAL CARBON DIOXIDE 25.5 MMOL/L (24-32); TOTAL PROTEIN 4.8 G/DL (6.4-8.2); eCRCL 97 ML/MIN; eGFR > 90 ML/MIN
[2023-12-27 06:00] VITALS: BP 176/72; PULSE 57; RESP 26; TEMP 96.4; O2SAT 96
[2023-12-27 08:00] VITALS: RESP 26; O2SAT 100
[2023-12-27 11:00] VITALS: BP 168/66; PULSE 60; RESP 16; TEMP 97.6; O2SAT 97
[2023-12-27] MEDS: HYDROcodone/acetaminophen 10/325mg tab PO PRN (13:01)
[2023-12-27] MEDS: PEG 3350/Na sulf,bicarb,Cl/KCl oral sol 4 liter bottle PO ONE (14:49)
[2023-12-27 15:00] VITALS: BP 157/67; PULSE 68; RESP 16; TEMP 98.6; O2SAT 96
[2023-12-27] MEDS: HYDROcodone/acetaminophen 10/325mg tab PO SCH (15:15)
[2023-12-27 18:00] VITALS: BP 181/61; PULSE 61; RESP 19; TEMP 97.3; O2SAT 95
[2023-12-27] MEDS: lisinopril 10 MG tablet PO SCH (19:31)
[2023-12-27 22:00] VITALS: BP 148/60; PULSE 61; RESP 15; TEMP 98.6; O2SAT 95
[2023-12-28] VITALS (7 sets, daily range): BP systolic 133–176; BP diastolic 45–70; PULSE 47–66; RESP 13–20; TEMP 96.6–98.7; O2SAT 94–98
[2023-12-28 07:44] LABS: BASOPHILS % (AUTO) 0.1 % (0-1); EOSINOPHILS % (AUTO) 0.4 % (0-6); HEMATOCRIT 23.1 % (35.0-45.0); HEMOGLOBIN 7.4 g/dl (12.0-16.0); LYMPHOCYTES # (AUTO) 0.6 X10'3 (1.1-4.8); LYMPHOCYTES % (AUTO) 11.2 % (21-51); MEAN CORPUSCULAR HEMOGLOBIN 31.1 PG (27.0-31.0); MEAN CORPUSCULAR HGB CONC 32.3 g/dL (33.0-36.5); MEAN CORPUSCULAR VOLUME 96.3 FL (78-98); MONOCYTES # (AUTO) 0.3 X10'3 (0-0.9); MONOCYTES % (AUTO) 6.5 % (2-12); NEUTROPHILS # (AUTO) 4.1 X10'3 (1.8-7.7); NEUTROPHILS % (AUTO) 81.8 % (42-75); PLATELET COUNT 101 X10'3 (140-440); RED CELL DISTRIBUTION WIDTH 17.7 % (11.5-14.5)
[2023-12-28 07:52] LABS: ALANINE AMINOTRANSFERASE 41 U/L (12-78); ALBUMIN 2.3 G/DL (3.4-5.0); ALKALINE PHOSPHATASE 126 IU/L (46-116); ANION GAP 7 (8-16); ASPARTATE AMINO TRANSFERASE 22 U/L (10-37); BILIRUBIN,TOTAL 0.5 MG/DL (0.1-1.0); BLOOD UREA NITROGEN 9 MG/DL (7-18); CALCIUM 7.3 MG/DL (8.5-10.1); CHLORIDE 103 MMOL/L (99-107); CREATININE 0.41 MG/DL (0.40-0.90); GLUCOSE 88 MG/DL (70-104); MAGNESIUM 1.6 MG/DL (1.5-2.4); SODIUM 139 MMOL/L (135-145); TOTAL CARBON DIOXIDE 28.7 MMOL/L (24-32); TOTAL PROTEIN 4.7 G/DL (6.4-8.2); eCRCL 80 ML/MIN; eGFR > 90 ML/MIN
[2023-12-28 07:54] LABS: POTASSIUM 2.8 MMOL/L (3.5-5.1)
[2023-12-28] MEDS ORDERED: potassium Cl 20 mEq SR tablet PO PRN (08:00)
[2023-12-28] MEDS: K and/or MAG REPLACEMENT MC SCH (08:00)
[2023-12-28] MEDS: potassium Cl 20 mEq SR tablet PO PRN (09:34)
[2023-12-28] MEDS ORDERED: magnesium Cl slow-release 64mg tablet PO PRN (14:40)
[2023-12-28] MEDS: potassium Cl 40MEQ/1/2NS 520ml 520 ML IV PRN (15:30)
[2023-12-29] VITALS (21 sets, daily range): BP systolic 141–203; BP diastolic 52–80; PULSE 50–89; RESP 12–20; TEMP 97–99.1; O2SAT 95–98
[2023-12-29 09:06] LABS: ALANINE AMINOTRANSFERASE 27 U/L (12-78); ALBUMIN 2.5 G/DL (3.4-5.0); ALBUMIN/GLOBULIN RATIO 0.9 (1.1-1.5); ALKALINE PHOSPHATASE 138 IU/L (46-116); ANION GAP 6 (8-16); ASPARTATE AMINO TRANSFERASE 18 U/L (10-37); BILIRUBIN,TOTAL 0.5 MG/DL (0.1-1.0); BLOOD UREA NITROGEN 7 MG/DL (7-18); BUN/CREATININE RATIO 21.2 (10.0-20.0); CALCIUM 7.8 MG/DL (8.5-10.1); CHLORIDE 104 MMOL/L (99-107); CREATININE 0.33 MG/DL (0.40-0.90); GLUCOSE 81 MG/DL (70-104); MAGNESIUM 1.7 MG/DL (1.5-2.4); POTASSIUM 3.7 MMOL/L (3.5-5.1); SODIUM 137 MMOL/L (135-145); TOTAL CARBON DIOXIDE 27.4 MMOL/L (24-32); TOTAL PROTEIN 5.3 G/DL (6.4-8.2); eCRCL 100 ML/MIN; eGFR > 90 ML/MIN
[2023-12-29] MEDS ORDERED: fentaNYL/PF 50MCG/1 ML 2ML syringe ONE (10:37)
[2023-12-29] MEDS ORDERED: LIDOcaine 2% Viscous 15ml cup ONE (10:38)
[2023-12-29] MEDS ORDERED: MIDAZolam 1 MG/ML 5ML VIAL ONE (10:38)
[2023-12-29 13:15] LABS: BASOPHILS % (AUTO) 0.1 % (0-1); EOSINOPHILS # (AUTO) 0.1 X10'3 (0-0.9); EOSINOPHILS % (AUTO) 1.1 % (0-6); HEMATOCRIT 25.9 % (35.0-45.0); HEMOGLOBIN 8.5 g/dl (12.0-16.0); LYMPHOCYTES # (AUTO) 0.9 X10'3 (1.1-4.8); LYMPHOCYTES % (AUTO) 14.6 % (21-51); MEAN CORPUSCULAR HEMOGLOBIN 31.5 PG (27.0-31.0); MEAN CORPUSCULAR HGB CONC 32.7 g/dL (33.0-36.5); MEAN CORPUSCULAR VOLUME 96.4 FL (78-98); MEAN PLATELET VOLUME 8.7 FL (7.4-10.4); MONOCYTES # (AUTO) 0.4 X10'3 (0-0.9); MONOCYTES % (AUTO) 6.9 % (2-12); NEUTROPHILS # (AUTO) 4.8 X10'3 (1.8-7.7); NEUTROPHILS % (AUTO) 77.3 % (42-75); PLATELET COUNT 219 X10'3 (140-440); RED BLOOD COUNT 2.69 X10'6 (4.20-5.60); RED CELL DISTRIBUTION WIDTH 17.9 % (11.5-14.5); WHITE BLOOD COUNT 6.2 X10'3 (4.5-11.0)
[2023-12-29] MEDS: lactose-reduced food (Ensure Enlive) - 237ml bottle PO SCH (15:40)
[2023-12-30] VITALS: BP 153/54; PULSE 62
[2023-12-30 00:32] VITALS: BP 153/54; PULSE 53; RESP 17; TEMP 97.9; O2SAT 95
[2023-12-30 03:45] LABS: BASOPHILS % (AUTO) 0.5 % (0-1); EOSINOPHILS % (AUTO) 0.7 % (0-6); HEMATOCRIT 25.4 % (35.0-45.0); HEMOGLOBIN 8.4 g/dl (12.0-16.0); LYMPHOCYTES # (AUTO) 0.4 X10'3 (1.1-4.8); LYMPHOCYTES % (AUTO) 7.4 % (21-51); MEAN CORPUSCULAR HEMOGLOBIN 31.9 PG (27.0-31.0); MEAN CORPUSCULAR HGB CONC 33.1 g/dL (33.0-36.5); MEAN CORPUSCULAR VOLUME 96.4 FL (78-98); MEAN PLATELET VOLUME 8.4 FL (7.4-10.4); MONOCYTES # (AUTO) 0.3 X10'3 (0-0.9); MONOCYTES % (AUTO) 5.6 % (2-12); NEUTROPHILS # (AUTO) 5.2 X10'3 (1.8-7.7); NEUTROPHILS % (AUTO) 85.8 % (42-75); PLATELET COUNT 214 X10'3 (140-440); RED BLOOD COUNT 2.64 X10'6 (4.20-5.60)
[2023-12-30 04:00] VITALS: BP 142/54; PULSE 53; RESP 18; TEMP 97.9; O2SAT 95
[2023-12-30 04:03] LABS: ALANINE AMINOTRANSFERASE 25 U/L (12-78); ALBUMIN 2.5 G/DL (3.4-5.0); ALKALINE PHOSPHATASE 136 IU/L (46-116); ANION GAP 4 (8-16); ASPARTATE AMINO TRANSFERASE 14 U/L (10-37); BILIRUBIN,TOTAL 0.4 MG/DL (0.1-1.0); BLOOD UREA NITROGEN 7 MG/DL (7-18); BUN/CREATININE RATIO 19.4 (10.0-20.0); CALCIUM 7.2 MG/DL (8.5-10.1); CHLORIDE 103 MMOL/L (99-107); CREATININE 0.36 MG/DL (0.40-0.90); GLUCOSE 92 MG/DL (70-104); MAGNESIUM 1.3 MG/DL (1.5-2.4); SODIUM 137 MMOL/L (135-145); TOTAL CARBON DIOXIDE 29.9 MMOL/L (24-32); TOTAL PROTEIN 5.1 G/DL (6.4-8.2); eCRCL 91 ML/MIN; eGFR > 90 ML/MIN
[2023-12-30 04:06] LABS: POTASSIUM 2.6 MMOL/L (3.5-5.1)
[2023-12-30] MEDS: magnesium sulf-water 4G/100mL 100 ML IV PRN (04:20)
[2023-12-30 06:00] VITALS: BP 172/63; PULSE 57; RESP 18; TEMP 97.9; O2SAT 94
[2023-12-30] MEDS: magnesium sulf-water 2g/50mL 50 ML IV PRN (07:19)
[2023-12-30] MEDS: amLODIPine 5mg tablet PO SCH (08:00)
[2023-12-30] MEDS: IRON,CARBONYL (45 MG ELEMENTAL IRON) SR.TABLET PO SCH (08:00)
[2023-12-30] MEDS: lisinopril 10 MG tablet PO SCH (09:33)
[2023-12-30 11:00] VITALS: BP 162/54; PULSE 54; RESP 18; O2SAT 94
[2023-12-30 15:57] VITALS: RESP 16
[2024-01-15 11:37] LABS: OCCULT BLOOD STOOL POSITIVE (Neg)
== END 2023-12-30 16:00 | DRG 377 ==
LOC: ER 12:49 → ED HOLD 16:46 → UNDOADMIN 16:46 → ED HOLD 18:38 → PCU 3S 21:45 → ED HOLD 21:45
PROVIDERS: ADMIT Internal Medicine; ATTEND Internal Medicine
PROC: 30233N1 Transfusion of Nonautologous Red Blood Cells into Peripheral Vein, Percutaneous Approach (ICD-10-PCS; principal; 2023-12-24)
PROC: 4A00X4Z Measurement of Central Nervous Electrical Activity, External Approach (ICD-10-PCS; 2023-12-25)
PROC: 0DJ08ZZ Inspection of Upper Intestinal Tract, Via Natural or Artificial Opening Endoscopic (ICD-10-PCS; 2023-12-28)
DX: K92.2 Gastrointestinal hemorrhage, unspecified (principal); G93.41 Metabolic encephalopathy; I69.351 Hemiplegia and hemiparesis following cerebral infarction affecting right dominant side; I48.91 Unspecified atrial fibrillation; I11.0 Hypertensive heart disease with heart failure; I25.10 Atherosclerotic heart disease of native coronary artery without angina pectoris; G89.29 Other chronic pain; E78.5 Hyperlipidemia, unspecified; K22.2 Esophageal obstruction; D50.9 Iron deficiency anemia, unspecified; E03.9 Hypothyroidism, unspecified; F03.90 Unspecified dementia, unspecified severity, without behavioral disturbance, psychotic disturbance, mood disturbance, and anxiety; D69.6 Thrombocytopenia, unspecified; I50.9 Heart failure, unspecified; R56.9 Unspecified convulsions; I25.2 Old myocardial infarction; Z85.118 Personal history of other malignant neoplasm of bronchus and lung; Z90.710 Acquired absence of both cervix and uterus; Z88.8 Allergy status to other drugs, medicaments and biological substances
CPT/HCPCS: 36415; 36430; 43235; 70450; 71045; 80048; 80053; 80076; 80185; 81001; 82272; 82607; 82728; 82948; 83540; 83550; 83605; 83735; 83880; 84132; 84439; 84443; 84466; 84484; 85008; 85025; 85027; 85610; 85651; 85730; 86885; 86900; 86901; 86920; 87040; 87081; 92508; 92616; 93005; 93306; 95816; 97161; 97530; 99152; 99291; A4615; A4620; A6212; A6213; A6250; A6258; A6402; A6449; C9254; G0378; J1756; J1940; J2250; J2405; J2470; J3010; J3475; J3480; J7030; J7040; J7050; P9016

== ENCOUNTER 2024-08-14 16:14 | Inpatient (IN) | payer MEDICARE, MEDICAID ==
[~2024-08-14] VITALS: Ht 154.9 cm; Wt 60.0 kg
[~2024-08-14 16:14] MED LIST changes: +AMLO5TAB16 PO; -APIX5TAB3 PO; +CARB-268 EACHEYE; +DICL20GE TD; +DOCU-148 PO; +FERR325T28 PO; +FLUT16SP2 BOTHNARES; +HYDR-3972 PO; +HYDR-3973 PO; +LISI10TA27 PO; -LOP25T PO; +LORA-268 PO; +METO-384 PO; -OXYB15TA19 PO; +POLY119P2 PO; -POTA-192 PO; +POTA-197 PO; +RIVA15TA PO; -ZOLP5TAB8 PO
--- NOTE | 2024-08-14 17:22 | ELECTROCARDIOGRAPH REPORT ---
[facility] Test Date: 2024-08-14 Test Time: 17:19:58 Pat Name: MARGOT SHERIDAN [facility]- [id number] Room: Gender: F Veneer Redrier: : [id number] Requested By: KELSEA DAWSON Order Number: [id number] Reading MD: Dr. Kelsea Dawson Measurements Intervals [place] Rate: 135 P: 0 NV: 0 QRS: -23 QRSD: 70 T: 222 QT: 350 QTc: 525 Interpretive Statements Atrial fibrillation Inferior infarct, old Lateral leads are also involved Prolonged QT interval Electronically Signed On 08-14-2024 17:54:[address] Kelsea Dawson Please click the below link to view image of tracing.
[2024-08-14] MEDS: diltiazem 5mg/ml 5ml inj. IV ONE ×2 (17:50→23:35)
[2024-08-14] MEDS ORDERED: magnesium sulf-water 4G/100mL 100 ML IV PRN (18:05)
[2024-08-14] MEDS ORDERED: potassium Cl 40MEQ/1/2NS 520ml 520 ML IV PRN (18:05)
[2024-08-14] MEDS ORDERED: magnesium sulf-water 2g/50mL 50 ML IV PRN (18:05)
[2024-08-14] MEDS ORDERED: potassium Cl 20 mEq SR tablet PO PRN ×2 (18:05)
[2024-08-14] MEDS ORDERED: acetaminophen 325mg tablet PO PRN (18:05)
[2024-08-14] MEDS ORDERED: ondansetron/PF 4mg/2ml inj IV PRN (18:05)
[2024-08-14] MEDS ORDERED: magnesium Cl slow-release 64mg tablet PO PRN (18:05)
--- NOTE | 2024-08-14 18:20 | HISTORY AND PHYSICAL-Residence ---
History & Physical Providers to CC Resident Creating Document: SHARI LENNON, RES ~ History of Present Illness Primary Medical Doctor: DR GRANADOS Reason for Admit\Complaint: hip pain, hip fracture History of Present Illness The patient is a long-term resident of [facility] since 2020 following a stroke that resulted in residual right arm and right leg weakness. She is bed-bound and has history of bilateral knee replacement. Her past medical history includes hypothyroidism, hyperlipidemia, hypertension, and a distant history of treated lung cancer. Last night, the patient has slid out of bed and has since been complaining of right hip and right femoral pain. On exam, the right leg is shortened and externally rotated, raising concern for a possible r ight hip fracture. She is currently in significant pain. She has a history of upper GI bleed and was admitted to [facility] in December 2023 underwent EGD with no significant findings. She also has a history of atrial fibrillation, on Xarelto and aspirin, although the timing of her last dose is a his is currently unknown. She is designated as DNR. Her son, Sav ([phone]) who was present at bedside, remains highly supportive and visits her daily. Last dose of Xarelto; yesterday at 4:54 p.m. Last dose of aspirin; yesterday at 8: 44 a.m. We will hold both for possible surgery tomorrow. Allergies: Coded Allergies: promethazine HCl (Verified Allergy, Unknown, 12/24/23) Home Medications Home Medications Active Reported Hydrocodone-Apap 10-325 Tablet (Acetaminophen/Hydrocodone Bitart) 10mg/325mg Tablet 1 Tab PO Q6H PRN 5 Days Xarelto (Rivaroxaban) 15 Mg Tab 1 Tab PO HS Colace (Docusate Sodium) 100 Mg Capsule 1 Cap PO Q12H 30 Days Amlodipine Besylate 5 Mg Tablet 1 Tab PO DAILY Miralax (Polyethylene Glycol 3350) 17 Gram/Dose Powder 17 Gm PO DAILY dissolve in water Klor-Con M20 (Potassium Chloride) 20 Meq Tab.er.prt 1 Tab PO DAILY 30 Days Lisinopril 10 Mg Tablet 1 Tab PO DAILY Flonase (Fluticasone Propionate) 16 Gm [place].susp 2 Sprays BOTHNARES DAILY 30 Days Voltaren Arthritis Pain (Diclofenac Sodium) 1 % Gel..gram. 1 Applic TD BID Hydrocodon-Acetaminophn 10-325 tablet (Acetaminophen/Hydrocodone Bitart) 10mg- 325mg Tablet 1 Tab PO Q6H Metoprolol Succinate 50 Mg Tab.sr.24h 1 Tab PO DAILY Artificial Tears (Carboxymethylcellulose Sodium) 1 % Drops 1 Drop EACHEYE TID Ferrous Sulfate* (Ferrous Sulfate) 325 Mg Tablet 1 Tab PO TID Ativan (Lorazepam) 0.5 Mg Tablet 1 Tab PO Q8H PRN 30 Days Cordarone (Amiodarone HCl) 200 Mg Tablet 200 Mg PO BID Atorvastatin Calcium 80 Mg Tablet 1 Tab PO HS 30 Days Dilantin (Phenytoin Sodium Extended) 100 Mg Capsule 300 Mg PO HS Aspir 81 (Aspirin) 81 Mg Tablet.dr 81 Tab PO DAILY 30 Days Nitrostat SL* (Nitroglycerin) 0.4 Mg Tablet 1 Tab SL Q5MIN PRN Past Medical History Past Medical History History of stroke, with residual right-sided weakness. History of lung cancer, cured. Atrial fibrillation, hypertension, hyperlipidemia Past Surgical History Surgical History Comment Bilateral knee replacement surgeries Family History Family History: Patient reports no known family medical history. Past Social History Social History Comment She is a long-term resident of [facility], history of CVA with residual right- sided weakness, bed-bound Smoking: Non-Smoker Alcohol Use: None Drug Use: None Lives In: Assisted Care Occupation: retired ROS All Other Systems: Reviewed and Negative ROS As stated above in the HPI, otherwise all systems are reviewed and negative. Exam Vitals: Vital Signs Date Time Temp Pulse Resp B/P (MAP) Pulse Ox O2 Delivery O2 Flow Rate FiO2 08/14/24 17:50 136 133/89 08/14/24 17:47 16 98 08/14/24 16:18 97.9 General Appearance: Elderly female, complaining of pain right hip. HEENT: Atraumatic, normocephalic, JAY, EOMI. Normal oropharynx, moist oral mucosa. Neck: Trachea midline. Supple, normal ROM. No JVD, bruit, lymphadenopathy or masses, or other lesions. Respiratory: Chest wall is symmetric and without deformity. No signs of respiratory distress. Equal breath sounds bilaterally. No wheeze, rub, Rales or crackles. Cardiac: Irregular rhythm. GI: No tenderness. Abdomen symmetric, nondistended, soft, normal bowel sounds x4 quadrant normoactive. No guarding, no rebound or rigidity. No hepatosple nomegaly. No masses, no bruit, no flank pain bilaterally. Extremities: Right leg is shortened and externally rotated Skin: Intact, dry, warm, no rashes or petechia. Neuro: Speech is clear, alert and oriented x4. No sensory or motor deficit, DTRs normal. Cranial nerves II to XII intact. Psych: Normal affect, good eye contact, no apparent hallucination, normal speech. Advance Care Planning Advanced Care plannin - 30 Minutes Additional Plan Assessment and plan: The patient is a long-term resident of [facility] since 2020 following a stroke that resulted in residual right arm and right leg weakness. She is bed- bound and has history of bilateral knee replacement. Her past medical history includes hypothyroidism, hyperlipidemia, hypertension, and a distant history of treated lung cancer. Last night, the patient has slid out of bed and has since been complaining of right hip and right femoral pain. On exam, the right leg is shortened and externally rotated, raising concern for a possible right hip fracture. She is currently in significant pain. Acute Traumatic Right hip fracture, right femoral fracture CT shows acute mildly impacted distal femoral metaphysis fracture Fracture line extending very close to the femoral component of the prosthesis. Pain management; Dilaudid 1 mg IV bolus given, Dilaudid 1 mg every [address] Medrano consulted, evaluation pending NPO after midnight Paroxysmal atrial fibrillation with RVR Heart rate in 140s despite administering Cardizem 5 mg IV bolus Admitted to telemetry floor Cardizem 10 mg IV bolus ordered, followed by Cardizem drip Hold Xarelto and aspirin; risk versus benefits discussed we will resume after surgery She takes metoprolol succinate 50 mg one tablet daily, resume after Cardizem drip discontinued Hypertension: Cardizem drip now for paroxysmal AFib We will resume home amlodipine 5 mg and lisinopril 10 mg daily when drip discont inued Hypothyroidism Levothyroxine 25 mcg daily TSH within reference ranges Code status: DNR DVT prophylaxis: SCD Shari Lennon Internal Medicine Resident Date of Service: August 14, 2024 Billing Provider: EAGLE ESCOBEDO MD, SHAMS, RES August 14, 2024 18:20
--- NOTE | 2024-08-14 18:42 | RADIOLOGY REPORT ---
INDICATION: RIGHT KNEE PAIN WITH FX COMPARISON: None TECHNIQUE: CT of the right was performed without contrast. Volume transverse images were obtained a nd reconstructed in multiple planes using bone and soft tissue algorithms. CONTRAST: None Radiation Dose Information: CT Dose: CTDI volume is 16.76 mGy. Dose-length product is 543.05 mGy*cm FINDINGS: The alignment is normal. There is right knee arthroplasty which appears to be in anatomical position the yarder boss. Due to metall ic artifact the right knee region is nondiagnostic. There is no fracture, dislocation, or focal osseous lesions. The soft tissues demonstrate fat stranding suggesting edema. Atherosclerotic changes of the right sup erficial femoral artery and popliteal artery IMPRESSION: 1. Status post right knee arthroplasty which appears to be anatomical variation metallic artifact the study is nondiagnostic for evaluation of right knee. 2. Severe subcutaneous edema. 3. Atherosclerotic changes of the superficial femoral artery and popliteal artery with calcified plaq ue. All CT scans at this medical facility are performed using dose modulation techniques as appropriate t o a performed exam including the following: Automated exposure control was utilized; adjustment of th e MA and/or KV according to patient size; and use of iterative reconstruction technique.
--- NOTE | 2024-08-14 18:44 | Physician Documentation ---
History of Present Illness ~ Chief Complaint: Mechanical Fall Stated Complaint: FALL KNEE PAIN Time Seen by MD: 17:13 Primary Medical Doctor: DR GRANADOS Source: patient, family (SON, SAV) Mode of Arrival: EMS Exam Limitations: no limitations HPI 88-year-old female with chief complaint right leg pain that occurred after she fell out of bed at [facility] today. No head strike or ALOC. Patient on eliquis due to atrial fibrillation. Pain is in right knee. Unable to straighten knee due to pain. She had an x-ray done at [facility] and was sent to the ER due to a fracture around her prosthetic joint in her femur with some displacement of the bone fragment. Patient reports that her knee replacement was done over 10 years ago. Son is at bedside and supplements history, son's name is Sav. Patient does have some mild dementia. Tetanus within 5 Years?: No Medication Reconciliation Allergies: Coded Allergies: promethazine HCl (Verified Allergy, Unknown, 12/24/23) Scheduled Amiodarone Hcl (Cordarone), 200 MG PO BID, (Reported) Amlodipine Besylate (Amlodipine Besylate), 1 TAB PO DAILY, (Reported) Aspirin (Aspir 81), 81 TAB PO DAILY, (Reported) Atorvastatin Calcium (Atorvastatin Calcium), 1 TAB PO HS, (Reported) Carboxymethylcellulose Sodium (Artificial Tears), 1 DROP EACHEYE TID, (Reported) Diclofenac Sodium (Voltaren Arthritis Pain), 1 APPLIC TD BID, (Reported) Docusate Sodium (Colace), 1 CAP PO Q12H, (Reported) Ferrous Sulfate* (Ferrous Sulfate*), 1 TAB PO TID, (Reported) Fluticasone Propionate (Flonase), 2 SPRAYS BOTHNARES DAILY, (Reported) Hydrocodone Bit/Acetaminophen (Hydrocodon-Acetaminophn 10-325 tablet), 1 TAB PO Q6H, (Reported) Lisinopril (Lisinopril), 1 TAB PO DAILY, (Reported) Metoprolol Succinate (Metoprolol Succinate), 1 TAB PO DAILY, (Reported) Phenytoin Sodium Extended (Dilantin), 300 MG PO HS, (Reported) Polyethylene Glycol 3350 (Miralax), 17 GM PO DAILY, (Reported) Potassium Chloride (Klor-Con M20), 1 TAB PO DAILY, (Reported) Rivaroxaban (Xarelto), 1 TAB PO HS, (Reported) Scheduled PRN Hydrocodone Bit/Acetaminophen (Hydrocodone-Apap 10-325 Tablet), 1 TAB PO Q6H PRN for breakthrough pain, (Reported) Lorazepam (Ativan), 1 TAB PO Q8H PRN for anxiety, (Reported) Nitroglycerin SL* (Nitrostat SL*), 1 TAB SL Q5MIN PRN for Chest pain Q5min PRNx3-call MD, (Reported) Past Medical History Past Medical History: CVA/TIA/Stroke, Atrial Fibrillation, Coronary Artery Disease, Congestive Heart Failure, High Cholesterol, Hypertension, Myocardial Infarction, Diverticulitis, Chronic Back Pain, Lung Cancer Past Surgical History: angioplasty, cancer surgery, hysterectomy, orthopedic surgeries, other Patient History: Patient reports no known family medical history. Alcohol Use: None Drug Use: none Lives In: Assisted Care Occupation: retired Review of Systems All Other Systems at this time: Reviewed and Negative Physical Exam Vital Signs: Temperature: 97.9, Source: Oral, Heart Rate: 136, Respiratory Rate: 16, BP: 133/89, Pulse Oximetry: 98, Weight: 60.000 Physical Exam GENERAL: Alert, no acute distress. HEENT: NCAT, EOMI, PERRL, normal oropharynx, moist oral mucosa. NECK: Supple, trachea midline. CARDIAC: irregular irregular rhythm with elevated rate, no murmurs, rubs, or gallops. PV: Equal distal pulses. No lower extremity edema, cap refill less than 2 seconds. RESPIRATORY: Equal breath sounds, clear to auscultation bilaterally, no respiratory distress. MUSCULOSKELETAL: Right leg is rotated slightly outward knee is in a flexed position. Patient has pain with any movement of her right leg. NEUROLOGICAL: Awake, alert, and oriented x 3. SKIN: Warm/dry, no pallor, no rash. PSYCH: Alert and appropriate. Affect congruent with mood. Speech is clear. Good eye contact. Progress Progress Note SPOKE WITH DR. SILVA ABOUT IT WHO IS AWARE AND ASKED TO HOLD ANTICOAGULATION AND MAKE NPO AFTER MIDNIGHT AND ALSO RECOMMENDED PLACING KNEE IS STRAIGHT LEG BRACE Results/Orders Results/Orders Orders - SHIVAM MORTON Ct Lower Extremity (08/14/24 17:36) Cbc/Diff (08/14/24 17:18) Pt Inr (08/14/24 17:18) PTT (08/14/24 17:18) BMP (08/14/24 17:18) * Npo After Midnight * (08/14/24 17:32) General Nursing Order (08/14/24 17:32) Page Hospitalist (08/14/24 17:33) Ct Lower Extremity (08/14/24 18:09) Completed Orders - SHIVAM MORTON Ct Lower Extremity (08/14/24 17:36) Ct Lower Extremity (08/14/24 18:09) Medications Received in ER Medications (Trade) Dose Ordered Sig/Isabel Route PRN Reason Start Time Stop Time Status Last Admin Dose Admin (Cardizem IV 5mg/ ml inj.) 5 mg ONCE ONCE IV 08/14/24 17:25 08/14/24 17:27 DC 08/14/24 17:50 5 MG Vital Signs 08/14/24 08/14/24 08/14/24 08/14/24 16:18 16:27 17:47 17:50 Temp 97.9 Pulse 90 141 136 Resp 18 15 16 B/P (MAP) 152/83 127/89 (102) 133/89 Pulse Ox 97 98 Medical Decision Making Differential Dx:Considerations: Include: Closed head injury, Cardiac injury, Fracture(s), Intraabdominal injury, Pneumothorax, Cerebral contusion, Pulmonary contusion, Spine injury, Tracheal injury, Urological injury, Vascular injury, Abrasion(s), Contusion(s), Foreign body(s), Hematoma(s), Laceration(s), Encephalopathy, Other Departure Time of Disposition: 18:42 Admitted to Inpatient Unit: to hospitalist Impression: Primary Impression: Shawna-prosthetic femoral shaft fracture Additional Impressions: Fall Qualified Codes: W19.XXXA - Unspecified fall, initial encounter Knee pain Qualified Codes: M25.561 - Pain in right knee Atrial fibrillation with RVR Chronic anticoagulation Condition: Fair Referrals: NO PRIMARY CARE PROVIDER (PCP) Education Educated: Patient Educated regarding: diagnosis, treatment, need for follow up Signature Scribe Signature: x Attestation: SHIVAM Hill August 14, 2024 18:44
--- NOTE | 2024-08-14 19:43 | RADIOLOGY REPORT ---
Procedure: CT CT LOWER EXTREMITY 08/14/2024 06:03 PM Indication: right femur fracture Comparison Study: CT scan of the right knee performed earlier today Technique: Axial images of the right femur were obtained and reformatted in coronal and sagittal plan es. All CT scans at this medical facility are performed using dose modulation techniques as appropria te to a performed exam including the following: Automated exposure control was utilized; adjustment o f the MA and/or KV according to patient size; and use of iterative reconstruction technique. CT Dose: CTDI volume is 9 mGy. Dose-length product is 425 mGy*cm FINDINGS: Bones: Acute mildly impacted distal femoral metaphysis fracture involving the medial and posterior co rtex with the fracture line extending distally very close to the prosthesis. The hip joint is maintai shilpa with mild changes of osteoarthritis labral chondrocalcinosis. The proximal and mid femoral cortex a mottled appearance. The bones appear demineralized. Soft tissues: Mild diffuse subcutaneous edema. Small suprapatellar joint effusion. Diffuse atheroscl erotic disease . There is focal thickening of the mid/ distal femoral vein which may reflect underlyi ng DVT. IMPRESSION: 1. Acute mildly impacted distal femoral metaphysis fracture with a fracture line extending very close to the femoral component of the prosthesis. Evaluation is limited by beam hardening artifact from t he orthopedic hardware.Small suprapatellar joint effusion noted. 2. Mild diffuse subcutaneous edema with no large hematoma identified. 3. Demineralized bones with mottled appearance of the femoral cortex related to osteoporosis or refle ct underlying infiltrative lesions such as multiple myeloma or metastasis. Recommend correlation wit h history. 4. Focal dilatation of the superficial femoral vein at junction of mid and distal segments that may r epresent underlying DVT. Recommend correlation with venous Doppler. 5. Peripheral arterial disease.
[2024-08-14] MEDS: K and/or MAG REPLACEMENT MC SCH (20:00)
[2024-08-14] MEDS: HYDROmorphone 1 mg/ml syringe IM ONE (22:07)
[2024-08-14] MEDS: diltiazem-NS 100mg/100ml 100 ML IV SCH (23:40)
--- NOTE | 2024-08-14 23:41 | RADIOLOGY REPORT ---
CHEST RADIOGRAPH Indication: CENTRAL LINE PLACEMENT Technique: Single frontal view of the chest was obtained COMPARISON: DI CHEST,SINGLE VIEW on DOS: 12/24/23 FINDINGS: Lines and Tubes: Right IJ central venous catheter noted with its tip projecting over SVC. Lungs: No pulmonary infiltrates or edema. Pleura: No effusion. No pneumothorax. Cardiomediastinal contours: Mild cardiomegaly. Prior sternotomy. IMPRESSION: No acute disease. Mild cardiomegaly.
[2024-08-14 23:52] LABS: BASOPHILS % (AUTO) 0.2 % (0-1); EOSINOPHILS % (AUTO) 0.1 % (0-6); HEMATOCRIT 24.8 % (35.0-45.0); HEMOGLOBIN 8.6 g/dl (12.0-16.0); LYMPHOCYTES # (AUTO) 0.9 X10'3 (1.1-4.8); LYMPHOCYTES % (AUTO) 11.9 % (21-51); MEAN CORPUSCULAR HEMOGLOBIN 34.3 PG (27.0-31.0); MEAN CORPUSCULAR HGB CONC 34.6 g/dL (33.0-36.5); MEAN CORPUSCULAR VOLUME 98.9 FL (78-98); MEAN PLATELET VOLUME 8.6 FL (7.4-10.4); MONOCYTES # (AUTO) 0.3 X10'3 (0-0.9); MONOCYTES % (AUTO) 4.1 % (2-12); NEUTROPHILS # (AUTO) 6.4 X10'3 (1.8-7.7); NEUTROPHILS % (AUTO) 83.7 % (42-75); PLATELET COUNT 199 X10'3 (140-440); RED CELL DISTRIBUTION WIDTH 12.5 % (11.5-14.5); WHITE BLOOD COUNT 7.7 X10'3 (4.5-11.0)
[2024-08-14] MEDS: normal saline 1000ml 1,000 ML IV SCH (23:52)
[2024-08-14] MEDS: HYDROmorphone 1 mg/ml syringe IV PRN (23:54)
[2024-08-15] VITALS (17 sets, daily range): BP systolic 102–160; BP diastolic 46–98; PULSE 77–138; RESP 8–20; TEMP 97.1–98; O2SAT 95–97
[2024-08-15 00:06] LABS: APTT 27 SECONDS (22-32); INR 1.1 INR; PROTHROMBIN TIME 10.9 SECONDS (9.0-12.0)
[2024-08-15 00:09] LABS: ALANINE AMINOTRANSFERASE 22 U/L (12-78); ALBUMIN 3.4 G/DL (3.4-5.0); ALBUMIN/GLOBULIN RATIO 1.1 (1.1-1.5); ALKALINE PHOSPHATASE 126 IU/L (46-116); ANION GAP 9 (8-16); ASPARTATE AMINO TRANSFERASE 14 U/L (10-37); BILIRUBIN,TOTAL 0.4 MG/DL (0.1-1.0); BLOOD UREA NITROGEN 23 MG/DL (7-18); BUN/CREATININE RATIO 40.4 (10.0-20.0); CALCIUM 8.4 MG/DL (8.5-10.1); CHLORIDE 102 MMOL/L (99-107); CREATININE 0.57 MG/DL (0.40-0.90); GLUCOSE 150 MG/DL (70-104); POTASSIUM 4.1 MMOL/L (3.5-5.1); SODIUM 138 MMOL/L (135-145); TOTAL PROTEIN 6.5 G/DL (6.4-8.2); eCRCL 50 ML/MIN; eGFR > 90 ML/MIN
[2024-08-15 00:19] LABS: BILIRUBIN,DIRECT 0.2 MG/DL (0-0.3); THYROID STIMULATING HORMONE 3.77 ulU/ml (0.34-4.50)
--- NOTE | 2024-08-15 06:14 | PROCEDURE NOTE- Residance ---
Procedure Note Providers to CC CC: FRANSISCO MAXWELL, RES ~ Planned Procedure Right IJ central line placement Indications Difficult access. Patient in need of pain medication and Cardizem drip. Informed Consent Son at the bedside and patient provided consent. Description The [facility] Central Line Insertion was starting with the first handwash prior to starting sterile technique. A time out was performed. My hands were washed immediately prior to the procedure. I wore a surgical cap, mask with protective eyewear, full gown and sterile gloves throughout the procedure. The patient was placed in Trendelenburg position. Right chest region was prepped using chlorhexidine scrub and draped in sterile fashion using a full drape and sterile probe cover and sterile gel employed. The medial and lateral heads of the sternocleidomastoid muscle were identified as was the carotid pulse. The Internal Jugular vein was identified using the ultrasound. Anesthesia was achieved over the vein using 1% lidocaine. Using real-time out of plane guidance, the introducer needle was inserted into the Internal Jugular vein under direct ultrasound visualization. Venous blood was withdrawn. The syringe was removed and a guidewire was advanced into the introducer needle. The guidewire was visualized in the Internal Jugular Vein by ultrasound. A small incision was made at the skin surface with a scalpel and the introducer needle was exchanged for a dilator over the guidewire. After appropriate dilation was obtained, the dilator was exchanged over the wire for a central venous catheter. The wire was removed and the catheter was sutured in place at 15 cm. A sterile sorbaview shield was placed over the catheter at the insertion site. The patient tolerated the procedure without any hemodynamic compromise. At time of procedure completion, all ports aspirated and flushed properly. Post-procedure chest x-ray showed right central venous catheter in satisfactory position. Estimated blood loss is minimal. Complication none X-Ray Findings Post-procedure chest x-ray showed right central venous catheter in satisfactory position Date of Service: August 15, 2024 Billing Provider: APRIL MAE MD, FRANCO LUIS, KEVIN August 15, 2024 06:14
--- NOTE | 2024-08-15 08:21 | PROGRESS NOTE- Residence ---
Progress Note - Resident Providers to CC Resident Creating Document: BECKY LENNON RES ~ Antibiotic Timeout Antibiotic Ordered?: No Subjective Patient was seen and examined at bedside. She is still reports pain in right hip. Dr. Medrano consulted, evaluated the patient, placed hip/knee brace. Nonsurgical management for now. Meanwhile, despite being on Cardizem drip 7.5 mcg, patient still in paroxysmal AFib with a heart rate in 120s. saw the patient, ordered digoxin, and amiodarone 200 mg twice daily for one week and then once daily continuously. He also recommended putting the patient on metoprolol. Objective Vital Signs Date Time Temp Pulse Resp B/P (MAP) Pulse Ox O2 Delivery O2 Flow Rate FiO2 08/15/24 07:26 98.0 120 16 129/78 (95) 95 Room Air General Appearance: Elderly female, complaining of pain right hip. Respiratory: Chest wall is symmetric and without deformity. No signs of respiratory distress. Equal breath sounds bilaterally. No wheeze, rub, Rales or crackles. Cardiac: Irregular rhythm. GI: No tenderness. Abdomen symmetric, nondistended, soft, normal bowel sounds x4 quadrant normoactive. No guarding, no rebound or rigidity. No hepatosplenomegaly. No masses, no bruit, no flank pain bilaterally. Extremities: Right leg is shortened and externally rotated Skin: Intact, dry, warm, no rashes or petechia. 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 She is bed- bound and has history of bilateral knee replacement. Her past medical history includes hypothyroidism, hyperlipidemia, hypertension, and a distant history of treated lung cancer. Last night, the patient has slid out of bed and has since been complaining of right hip and right femoral pain. On exam, the right leg is shortened and externally rotated, raising concern for a possible right hip fracture. She is currently in significant pain. Plan Plan Acute right right femoral fracture (fragility fracture) History of osteoporosis CT shows acute mildly impacted distal femoral metaphysis fracture Fracture line extending very close to the femoral component of the prosthesis. CT also reveals Focal dilatation of the superficial femoral vein at junction of mid and distal segments, US doppler ordered. Pain management; Dilaudid 1 mg IV bolus given, Dilaudid 1 mg every [address] Medrano consulted, evaluation pending Still NPO Paroxysmal atrial fibrillation with RVR Heart rate in 140s despite administering Cardizem 5 mg IV bolus Admitted to telemetry floor Cardizem 10 mg IV bolus ordered, followed by Cardizem drip Hold Xarelto and aspirin; risk versus benefits discussed we will resume after surgery She takes metoprolol succinate 50 mg one tablet daily, resume after Cardizem drip discontinued Hypertension: Cardizem drip now for paroxysmal AFib We will resume home amlodipine 5 mg and lisinopril 10 mg daily when drip discontinued Hypothyroidism Levothyroxine 25 mcg daily TSH within reference ranges Code status: DNR DVT prophylaxis: BRIANNA Lennon Internal Medicine Resident Date of Service: August 15, 2024 Billing Provider: YANNICK SMITH MD Common Visit Codes: [id number] INP/OBS CARE(HIGH) BECKY LENNON, RES August 15, 2024 08:21 YANNICK SMITH MD August 15, 2024 18:57
[2024-08-15] MEDS: metoprolol tartrate 25mg tablet PO SCH (10:32)
[2024-08-15] MEDS: digoxin 250mcg/ml 2ml ampule IV SCH ×2 (10:32→14:17)
--- NOTE | 2024-08-15 10:42 | VASCULAR REPORT ---
Right lower extremity venous duplex Clinical History: Right lower extremity swelling. Comparison: None Technique: Duplex Doppler evaluation of the deep venous system of the right lower extremity from the common femo ral vein to the popliteal vein including color Doppler and spectral/pulsed waveform analysis was perf ormed. Findings: The common femoral vein demonstrates appropriate compressibility and waveform variability. There is compressibility/patency of the great saphenous vein at the proximal thigh. The femoral vein demonstrates appropriate compressibility and waveform variability. The deep femoral vein demonstrates appropriate compressibility and waveform variability. The popliteal vein demonstrates appropriate compressibility and waveform variability. There is normal compressibility at the tibioperoneal trunk. Impression: 1. No right femoropopliteal venous thrombosis.
--- NOTE | 2024-08-15 10:45 | PROGRESS NOTE ---
Progress Note Cardiology Providers to CC ~ Subjective Subjective Patient seen and examined this morning. Patient was hospitalized yesterday with right hip fracture. Patient also had AFib with RVR. This morning her heart rate was in the 130s, with addition of two doses of digoxin her rate is better now. K plan discussed with Dr. Lennon. Objective Result Diagram: 08/14/24232808/14/242328 Objective General: Conscious alert oriented Neck: Supple without enlargement of the thyroid, or lymphadenopathy, Chest: Normal size and shape, no tenderness, nonlabored breathing, Breath sounds clear to auscultation. Heart: Irregularly irregular variable S1 Abdomen: Soft, nontender, no organomegaly, bowel sounds present. Extremities: No edema cyanosis or clubbing. Right hip fracture. Coagulation Studies Laboratory Tests Test 08/14/24 23:29 08/15/24 10:20 Prothrombin Time 10.9 SECONDS (9.0-12.0) INR International Normalized Ratio 1.1 INR Activated Partial Thromboplast Time 27 SECONDS (22-32) Coagulation Comments Problem\Assessment\Plan Additional Plan 1. 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 Medrano and hospitalist. 2. PAF with RVR: Agree with IV Cardizem. Increase p.o. metoprolol as required. Recommend amiodarone 200 mg p.o. b.i.d. for one week followed by 200 mg once a day. Resume anticoagulation when okayed by surgeon. 3. CAD status post coronary artery stenting and subsequent CABG x2: Continue medical therapy 3.: Diastolic heart failure: Check echocardiogram. Check BNP. Keep her euvolemic. 4. Hypertension, hyperlipidemia 5. History of CVA with residual right-sided weakness. 6. Other comorbidities include: Hypothyroidism, osteoporosis, anemia with hemoglobin of 8.6 on 08/14/2024. FRANCOISE PATEL MD August 15, 2024 10:45
[2024-08-15 10:49] LABS: BASOPHILS % (AUTO) 0 % (0-1); EOSINOPHILS % (AUTO) 0 % (0-6); HEMATOCRIT 27.2 % (35.0-45.0); HEMOGLOBIN 9.4 g/dl (12.0-16.0); LYMPHOCYTES % (AUTO) 9.9 % (21-51); MEAN CORPUSCULAR HEMOGLOBIN 33.8 PG (27.0-31.0); MEAN CORPUSCULAR HGB CONC 34.6 g/dL (33.0-36.5); MEAN CORPUSCULAR VOLUME 97.9 FL (78-98); MEAN PLATELET VOLUME 8.9 FL (7.4-10.4); MONOCYTES # (AUTO) 0.4 X10'3 (0-0.9); MONOCYTES % (AUTO) 4.1 % (2-12); NEUTROPHILS # (AUTO) 8.6 X10'3 (1.8-7.7); PLATELET COUNT 213 X10'3 (140-440); RED BLOOD COUNT 2.78 X10'6 (4.20-5.60); RED CELL DISTRIBUTION WIDTH 12.4 % (11.5-14.5)
[2024-08-15 11:05] LABS: ALANINE AMINOTRANSFERASE 22 U/L (12-78); ALBUMIN 3.3 G/DL (3.4-5.0); ALKALINE PHOSPHATASE 118 IU/L (46-116); ANION GAP 9 (8-16); ASPARTATE AMINO TRANSFERASE 14 U/L (10-37); BILIRUBIN,TOTAL 0.3 MG/DL (0.1-1.0); BLOOD UREA NITROGEN 26 MG/DL (7-18); CALCIUM 8.4 MG/DL (8.5-10.1); CHLORIDE 101 MMOL/L (99-107); CREATININE 0.65 MG/DL (0.40-0.90); GLUCOSE 161 MG/DL (70-104); POTASSIUM 3.8 MMOL/L (3.5-5.1); SODIUM 137 MMOL/L (135-145); TOTAL CARBON DIOXIDE 26.6 MMOL/L (24-32); TOTAL PROTEIN 6.6 G/DL (6.4-8.2); eCRCL 44 ML/MIN; eGFR 86 ML/MIN
[2024-08-15 11:11] LABS: APTT 22 SECONDS (22-32); INR 1.1 INR; PROTHROMBIN TIME 10.9 SECONDS (9.0-12.0)
[2024-08-15] MEDS: amiodarone 200mg tablet PO SCH (11:30)
[2024-08-15] MEDS: metoprolol tartrate 50mg tablet PO SCH (21:06)
[2024-08-16] VITALS (9 sets, daily range): BP systolic 129–160; BP diastolic 57–78; PULSE 73–112; RESP 15–23; TEMP 97.3–98.5; O2SAT 95–98
[2024-08-16 02:11] LABS: BASOPHILS % (AUTO) 0.1 % (0-1); EOSINOPHILS % (AUTO) 0 % (0-6); HEMATOCRIT 25.5 % (35.0-45.0); HEMOGLOBIN 8.5 g/dl (12.0-16.0); LYMPHOCYTES # (AUTO) 0.8 X10'3 (1.1-4.8); LYMPHOCYTES % (AUTO) 8.6 % (21-51); MEAN CORPUSCULAR HEMOGLOBIN 33.2 PG (27.0-31.0); MEAN CORPUSCULAR HGB CONC 33.5 g/dL (33.0-36.5); MEAN PLATELET VOLUME 8.8 FL (7.4-10.4); MONOCYTES # (AUTO) 0.7 X10'3 (0-0.9); NEUTROPHILS # (AUTO) 8.3 X10'3 (1.8-7.7); NEUTROPHILS % (AUTO) 84.3 % (42-75); PLATELET COUNT 202 X10'3 (140-440); RED BLOOD COUNT 2.58 X10'6 (4.20-5.60); RED CELL DISTRIBUTION WIDTH 12.8 % (11.5-14.5); WHITE BLOOD COUNT 9.8 X10'3 (4.5-11.0)
[2024-08-16 02:24] LABS: APTT 22 SECONDS (22-32); INR 1.1 INR; PROTHROMBIN TIME 10.9 SECONDS (9.0-12.0)
[2024-08-16 02:33] LABS: ALANINE AMINOTRANSFERASE 24 U/L (12-78); ALBUMIN 3.1 G/DL (3.4-5.0); ALKALINE PHOSPHATASE 113 IU/L (46-116); ANION GAP 9 (8-16); ASPARTATE AMINO TRANSFERASE 15 U/L (10-37); BILIRUBIN,TOTAL 0.3 MG/DL (0.1-1.0); BLOOD UREA NITROGEN 31 MG/DL (7-18); BUN/CREATININE RATIO 55.4 (10.0-20.0); CALCIUM 8.5 MG/DL (8.5-10.1); CHLORIDE 104 MMOL/L (99-107); CREATININE 0.56 MG/DL (0.40-0.90); GLUCOSE 138 MG/DL (70-104); PRO BRAIN NATRIURETIC PEPTIDE 3982 PG/ML (0-450); SODIUM 139 MMOL/L (135-145); TOTAL PROTEIN 6.2 G/DL (6.4-8.2); eCRCL 51 ML/MIN; eGFR > 90 ML/MIN
[2024-08-16] MEDS: diltiazem-NS 100mg/100ml 100 ML IV ONE ×2 (05:51→05:52)
[2024-08-16] MEDS ORDERED: metoprolol tartrate 50mg tablet PO SCH (08:00)
--- NOTE | 2024-08-16 09:48 | PROGRESS NOTE ---
Progress Note Cardiology Providers to CC ~ Subjective Subjective Patient seen and examined this morning. Her AFib rate is controlled now. She is still having 10/10 right hip pain. Objective Result Diagram: 08/16/24 0145 08/16/24 014 Objective General: Normal body habitus, no acute distress, HEENT: Sclerae clear, PERRL, gums without lesions or bleeding, oropharynx clear without erythema or exudate. Neck: Supple without enlargement of the thyroid, or lymphadenopathy, Chest: Normal size and shape, no tenderness, nonlabored breathing, Breath sounds clear to auscultation. Heart: Irregularly irregular, variable S1. Abdomen: Soft, nontender, no organomegaly, bowel sounds present. Extremities: Right hip fracture, right hemiparesis Coagulation Studies Laboratory Tests Test 08/16/24 01:45 Prothrombin Time 10.9 SECONDS (9.0-12.0) INR International Normalized Ratio 1.1 INR Activated Partial Thromboplast Time 22 SECONDS (22-32) Coagulation Comments Problem\Assessment\Plan Additional Plan 1. 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 Medrano and hospitalist. 2. PAF with RVR: As of 08/16/2024, AFib rate controlled with metoprolol tartrate 50 mg p.o. b.i.d., amiodarone. Resume anticoagulation when okayed by surgeon. 3. CAD status post coronary artery stenting and subsequent CABG x2: Continue medical therapy 3.: Diastolic heart failure: Check echocardiogram. BNP mildly elevated. Keep her euvolemic. 4. Hypertension, hyperlipidemia 5. History of CVA with residual right-sided weakness. 6. Other comorbidities include: Hypothyroidism, osteoporosis, anemia with hemoglobin of 8.5 on 08/16/2024. FRANCOISE PATEL MD August 16, 2024 09:48
[2024-08-16] MEDS ORDERED: HYDROcodone/acetaminophen 5mg/325mg tablet PO PRN (10:50)
[2024-08-16] MEDS: LIDOcaine 5% patch TP SCH (10:55)
[2024-08-16] MEDS: HYDROcodone/acetaminophen 10/325mg tab PO PRN (13:41)
[2024-08-16] MEDS: heparin, porcine 5000 units/ml vial SQ SCH (16:07)
[2024-08-16] MEDS: lactose-reduced food (Ensure Enlive) - 237ml bottle PO SCH (18:05)
[2024-08-16] MEDS ORDERED: LORazepam 0.5 MG tablet PO PRN (18:30)
[2024-08-16] MEDS ORDERED: nitroGLYCERIN 0.4mg SUBLingual tab SL PRN (18:30)
--- NOTE | 2024-08-16 18:31 | PROGRESS NOTE- Residence ---
Progress Note - Resident Providers to CC Resident Creating Document: GABRIELRAJAT MONTAGUE, RES ~ Antibiotic Timeout Antibiotic Ordered?: Yes Subjective Patient was seen and examined at bedside. She is still reports 10/10 pain in right hip. Added [place] for pain control and Dilaudid p.r.n. for breakthrough pain. Hemoglobin dropped slightly secondary to hemodilution. Started on DVT prophylaxis with heparin. Cardizem drip has been stopped Objective Vital Signs Date Time Temp Pulse Resp B/P (MAP) Pulse Ox O2 Delivery O2 Flow Rate FiO2 08/16/24 17:48 14 08/16/24 11:45 97.3 112 142/72 (95) 95 Room Air Result Diagram: 08/16/24 0145 08/16/24 0145 General: Normal body habitus, no acute distress, HEENT: Sclerae clear, PERRL, gums without lesions or bleeding, oropharynx clear without erythema or exudate. Neck: Supple without enlargement of the thyroid, or lymphadenopathy, Chest: Normal size and shape, no tenderness, nonlabored breathing, Breath sounds clear to auscultation. Heart: Irregularly irregular, variable S1. Abdomen: Soft, nontender, no organomegaly, bowel sounds present. Extremities: Right hip fracture, right hemiparesis Coagulation Studies Laboratory Tests Test 08/16/24 01:45 Prothrombin Time 10.9 SECONDS (9.0-12.0) INR International Normalized Ratio 1.1 INR Activated Partial Thromboplast Time 22 SECONDS (22-32) Coagulation Comments Assessment Assessment The patient is a long-term resident of [facility] since 2020 following a stroke that resulted in residual right arm and right leg weakness. She is bed- bound and has history of bilateral knee replacement. Her past medical history includes hypothyroidism, hyperlipidemia, hypertension, and a distant history of treated lung cancer. Last night, the patient has slid out of bed and has since been complaining of right hip and right femoral pain. On exam, the right leg is shortened and externally rotated, raising concern for a possible right hip fracture. She is currently in significant pain. Plan Plan Acute right right femoral fracture (fragility fracture) History of osteoporosis CT shows acute mildly impacted distal femoral metaphysis fracture Fracture line extending very close to the femoral component of the prosthesis. CT also reveals Focal dilatation of the superficial femoral vein at junction of mid and distal segments, US doppler ordered. Pain management; Dilaudid 1 mg IV bolus given, Dilaudid 1 mg every [address] Medrano consulted, evaluation pending 08/11/2024: P.o. Beaumont and IV Dilaudid for pain control. Given the CAD risk factors, decision was made by orthopedician to continue medical management. Patient may need a rehab at discharge. Started on DVT prophylaxis with heparin subcutaneous q.8 hours Paroxysmal atrial fibrillation with RVR Heart rate in 140s despite administering Cardizem 5 mg IV bolus Admitted to telemetry floor Cardizem 10 mg IV bolus ordered, followed by Cardizem drip Hold Xarelto and aspirin; risk versus benefits discussed we will resume after surgery She takes metoprolol succinate 50 mg one tablet daily, resume after Cardizem drip discontinued 08/16/2024: Cardizem drip stopped. Anticoagulation with rivaroxaban restarted. Hypertension: Cardizem drip now for paroxysmal AFib We will resume home amlodipine 5 mg and lisinopril 10 mg daily when drip discontinued 08/16/2024: Med rec done. Amlodipine and lisinopril restarted Hypothyroidism Levothyroxine 25 mcg daily TSH within reference ranges Code status: DNR DVT prophylaxis: Heparin Rajat Smith Internal Medicine Resident Date of Service: August 16, 2024 Billing Provider: YANNICK SMITH MD Common Visit Codes: [id number] INP/OBS CARE(HIGH) RAJAT GABRIEL, RES August 16, 2024 18:31 YANNICK SMITH MD August 16, 2024 18:34
[2024-08-16] MEDS: rivaroxaban 15mg tablet PO SCH (21:25)
[2024-08-16] MEDS: ferrous sulfate 325mg tablet PO SCH (21:26)
[2024-08-16] MEDS: docusate sod 100mg capsule PO SCH (21:26)
[2024-08-16] MEDS: atorvastatin 20mg tablet PO SCH (21:27)
[2024-08-16] MEDS: phenytoin sod ER 100mg capsule PO SCH (21:33)
[2024-08-16] MEDS: polyvinyl alcohol eye drops 15ML BOTTLE EACHEYE SCH (21:37)
[2024-08-16] MEDS: DICLOFENAC SODIUM 1% gel 1 50GM tube TP SCH (21:37)
[2024-08-17] VITALS (9 sets, daily range): BP systolic 137–175; BP diastolic 53–76; PULSE 67–102; RESP 15–17; TEMP 97.2–98.6; O2SAT 92–97
[2024-08-17 04:56] LABS: BASOPHILS % (AUTO) 0.2 % (0-1); EOSINOPHILS % (AUTO) 0.4 % (0-6); HEMATOCRIT 24.5 % (35.0-45.0); HEMOGLOBIN 8.3 g/dl (12.0-16.0); LYMPHOCYTES # (AUTO) 1.3 X10'3 (1.1-4.8); LYMPHOCYTES % (AUTO) 17.5 % (21-51); MEAN CORPUSCULAR HEMOGLOBIN 33.2 PG (27.0-31.0); MEAN CORPUSCULAR HGB CONC 33.8 g/dL (33.0-36.5); MEAN CORPUSCULAR VOLUME 98.4 FL (78-98); MEAN PLATELET VOLUME 8.4 FL (7.4-10.4); MONOCYTES # (AUTO) 0.7 X10'3 (0-0.9); MONOCYTES % (AUTO) 8.7 % (2-12); NEUTROPHILS # (AUTO) 5.6 X10'3 (1.8-7.7); NEUTROPHILS % (AUTO) 73.2 % (42-75); PLATELET COUNT 194 X10'3 (140-440); RED BLOOD COUNT 2.49 X10'6 (4.20-5.60); RED CELL DISTRIBUTION WIDTH 12.5 % (11.5-14.5); WHITE BLOOD COUNT 7.6 X10'3 (4.5-11.0)
[2024-08-17 05:13] LABS: APTT 28 SECONDS (22-32); INR 1.3 INR; PROTHROMBIN TIME 13.3 SECONDS (9.0-12.0)
[2024-08-17 05:23] LABS: ALANINE AMINOTRANSFERASE 24 U/L (12-78); ALBUMIN 2.8 G/DL (3.4-5.0); ALBUMIN/GLOBULIN RATIO 0.9 (1.1-1.5); ALKALINE PHOSPHATASE 105 IU/L (46-116); ANION GAP 7 (8-16); ASPARTATE AMINO TRANSFERASE 16 U/L (10-37); BILIRUBIN,TOTAL 0.4 MG/DL (0.1-1.0); BLOOD UREA NITROGEN 28 MG/DL (7-18); CALCIUM 8.4 MG/DL (8.5-10.1); CHLORIDE 105 MMOL/L (99-107); GLUCOSE 96 MG/DL (70-104); PHENYTOIN (DILANTIN) 5.2 UG/ML (10.0-20.0); POTASSIUM 3.6 MMOL/L (3.5-5.1); SODIUM 139 MMOL/L (135-145); TOTAL CARBON DIOXIDE 27.5 MMOL/L (24-32); TOTAL PROTEIN 5.9 G/DL (6.4-8.2); eCRCL 72 ML/MIN; eGFR > 90 ML/MIN
--- NOTE | 2024-08-17 06:48 | CONSULTATION ---
DATE OF CONSULTATION: 08/14/2024 DICTATING PHYSICIAN: IGNACIO Wiseman MD CARDIOLOGY CONSULTATION REASON FOR EVALUATION: Hip fracture with AFib with RVR. HISTORY OF PRESENT ILLNESS: The patient is an 88-year-old postmenopausal female who was last seen in my office back on 11/19/2017. She has history of hypertension, hyperlipidemia, diastolic heart failure, CAD, CABG, COPD and PAT. Her history of CAD dates back to 2000 when she had a PTCA and stenting of the LAD with SIOMARA stent. Subsequently, also had RCA stent with Bx Velocity stent. The patient had subsequent in-stent stenosis, necessitating CABG x 2 with SVG to LAD and SVG to RCA. Her last myocardial perfusion scan in the office was back on 12/14/2015 when it was negative for ischemia. Her last echocardiogram was back in 2016 in the office setting with ejection fraction of 70% to 75% with mild MR. The patient used to live in [place] with her . Subsequently, her . She has been a resident in [facility] since 2020, being followed by Dr. Rogers. She had a stroke back in 2020 resulting in residual right arm and right leg weakness. She is bedbound and has a history of bilateral knee replacements. Apparently, the patient was in the bed and during the nighttime, she rolled over and fell and had a hip fracture. She is DNR. Her son, Sav, , was present at bedside, has been highly supportive and visits her every day. PAST MEDICAL HISTORY: * Hypertension. * Hyperlipidemia. * Diabetes. * CAD, status post stenting and subsequent CABG x 2. * History of PAT, now AFib with RVR. * History of CVA. * Obesity. * History of lung cancer, status post wedge resection. PAST SURGICAL HISTORY: * Hysterectomy. * CABG. * Shoulder replacement. * Knee replacement. * Back surgery. * Lung cancer wedge resection. FAMILY HISTORY: Father is . Mother is . SOCIAL HISTORY: The patient quit smoking at age 31. No history of alcohol. Her son lives in [place]. Her daughter lives in [place]. MEDICATIONS AT HOME: Hydrocodone, Xarelto 50 mg p.o. daily, Colace, amlodipine 5 mg p.o. daily, MiraLax, Klor-Con 20 mEq p.o. daily, lisinopril 10 mg p.o. daily, Flonase, Voltaren. PHYSICAL EXAMINATION: GENERAL: The patient is still able to recognize in the ER, conscious, alert, and oriented. HEENT: Pupils are equal and reactive. Right-sided weakness present. VITAL SIGNS: Temperature 97.9, pulse 136 and in AFib, respirations 16 per minute, blood pressure 133/89, 96% pulse ox on room air. CARDIAC: Irregularly irregular. Variable S1 and S2 normal. No S3 or S4. LUNGS: Decreased breath sounds bibasilarly. ABDOMEN: Soft. Bowel sounds present. No hepatosplenomegaly. EXTREMITIES: Trace edema. The patient does have right femoral fracture. CENTRAL NERVOUS SYSTEM: Right hemiparesis. ASSESSMENT AND PLAN: 1. * An 88-year-old female with right hip fracture, being evaluated with Dr. Medrano. CT shows mildly displaced distal femoral metaphysis fracture, fracture line extending very close to the femoral component of her prosthesis. Management per hospitalist and Dr. Medrano. 2. CAD status post CABG x2: Continue medical therapy 3. * PAF with RVR. Agree with IV Cardizem and continue her metoprolol, titrate dose as required. Continue anticoagulation if surgery is not being considered. 4. * Hypertension, hyperlipidemia, concern with coronary risk factor modification. 5. Other comorbidities include hypothyroidism, prior history of lung cancer, history of CVA with right hemiparesis, history of seizure, 6. history of diastolic failure. Titrate diuretics as required. Keep her euvolemic. BV MD Bowen TID: [id number] RECEIPT: [id number] BC/SUM/AMI cc: Bulmaro Rogers MD MTDD
[2024-08-17] MEDS: fluticasone nasal spray 16GM bottle NS SCH (08:00)
[2024-08-17] MEDS: potassium Cl 20 mEq SR tablet PO SCH (10:14)
[2024-08-17] MEDS: polyethylene glycol 3350 17gm powd pack PO SCH (10:14)
[2024-08-17] MEDS: aspirin 81mg, enteric-coated 1 TAB TABLET.DR PO SCH (10:14)
[2024-08-17] MEDS: amLODIPine 5mg tablet PO SCH (10:15)
[2024-08-17] MEDS: lisinopril 10 MG tablet PO SCH (10:15)
--- NOTE | 2024-08-17 11:44 | PROGRESS NOTE- Residence ---
Progress Note - Resident Providers to CC Resident Creating Document: YANNICK SMITH MD ~ Antibiotic Timeout Antibiotic Ordered?: No Subjective Patient was seen and examined at bedside. Patient has right hip fracture. Orthopedic surgery recommended nonoperative management. She continues to experience significant pain in his currently on IV Dilaudid. The plan is to gradually wean IV opioids and transition to oral pain control, such as [place], to facilitate disposition to her long-term facility i.e. [facility]. The patient has been a long-term resident of the facility since 2020. Objective Vital Signs Date Time Temp Pulse Resp B/P (MAP) Pulse Ox O2 Delivery O2 Flow Rate FiO2 08/17/24 10:15 97 08/17/24 10:13 17 08/17/24 02:00 98.0 144/63 (90) 97 Room Air General: Normal body habitus, no acute distress, HEENT: Sclerae clear, PERRL, gums without lesions or bleeding, oropharynx clear without erythema or exudate. Neck: Supple without enlargement of the thyroid, or lymphadenopathy, Chest: Normal size and shape, no tenderness, nonlabored breathing, Breath sounds clear to auscultation. Heart: Irregularly irregular, variable S1. Abdomen: Soft, nontender, no organomegaly, bowel sounds present. Extremities: Right hip fracture, right hemiparesis, right leg externally rotated Result Diagram: 08/17/24 0435 08/17/24 0435 Coagulation Studies Laboratory Tests Test 08/17/24 04:35 Prothrombin Time 13.3 SECONDS (9.0-12.0) H INR International Normalized Ratio 1.3 INR Activated Partial Thromboplast Time 28 SECONDS (22-32) Coagulation Comments Advance Care Planning Advanced Care plannin - 30 Minutes Assessment Assessment The patient is a long-term resident of [facility] [place] since 2020 following a stroke that resulted in residual right arm and right leg weakness. She is bed- bound and has history of bilateral knee replacement. Her past medical history includes hypothyroidism, hyperlipidemia, hypertension, and a distant history of treated lung cancer. Last night, the patient has slid out of bed and has since been complaining of right hip and right femoral pain. On exam, the right leg is shortened and externally rotated, raising concern for a possible right hip fracture. She is currently in significant pain. Plan Plan Acute right right femoral fracture (fragility fracture) History of osteoporosis CT shows acute mildly impacted distal femoral metaphysis fracture Fracture line extending very close to the femoral component of the prosthesis. CT also reveals Focal dilatation of the superficial femoral vein at junction of mid and distal segments, US doppler ordered. Pain management; Dilaudid 1 mg IV bolus given, Dilaudid 1 mg every [address] Medrano consulted, evaluation pending 08/11/2024: P.o. [place] and IV Dilaudid for pain control. Given the CAD risk factors, decision was made by orthopedician to continue medical management. Patient may need a rehab at discharge. Started on DVT prophylaxis with heparin subcutaneous q.8 hours Paroxysmal atrial fibrillation with RVR Heart rate in 140s despite administering Cardizem 5 mg IV bolus Admitted to telemetry floor Cardizem 10 mg IV bolus ordered, followed by Cardizem drip Hold Xarelto and aspirin; risk versus benefits discussed we will resume after surgery She takes metoprolol succinate 50 mg one tablet daily, resume after Cardizem drip discontinued 08/16/2024: Cardizem drip stopped. Anticoagulation with rivaroxaban restarted. Hypertension: Cardizem drip now for paroxysmal AFib We will resume home amlodipine 5 mg and lisinopril 10 mg daily when drip discontinued 08/16/2024: Med rec done. Amlodipine and lisinopril restarted Hypothyroidism Levothyroxine 25 mcg daily TSH within reference ranges Code status: DNR DVT prophylaxis: Heparin Shari Bragg Internal Medicine Resident Date of Service: August 17, 2024 Billing Provider: YANNICK SMITH MD Common Visit Codes: [id number] INP/OBS CARE(HIGH) SHARI BRAGG, RES August 17, 2024 11:44 YANNICK SMITH MD August 17, 2024 18:48
--- NOTE | 2024-08-17 12:14 | CARDIOLOGY REPORT ---
APPROVED REPORT EXAM: Comprehensive 2D, Doppler, and color-flow Echocardiogram. Patient Location: [address] Blood Pressure: 141/66 mmHg Heart Rate: 80-106 bpm Rhythm: Atrial Fibrillation Indications Pre-Op LV Assessment Hip Fracture/Fall Hx of CAD Hypertension Maintenance And Engineering Manager: MD Maximino Previous echo: 12/25/2023 [facility] EF:55-60%, mild MR, mod TR 2D Dimensions RVDd 3.5 cm RA Minor3.6 cm LVOT Diameter 1.90 (1.8-2.4cm) CO 3.0 L/min M-Mode Dimensions RVDd 2.71 (2.1-3.2cm) Left Atrium(MM) 4.65 (2.5-4.0cm) IVSd 1.18 (0.7-1.1cm) LVDd 4.27 (4.0-5.6cm) Aortic Root 2.86 (2.2-3.7cm) PWd 1.22 (0.7-1.1cm) Aortic Cusp Exc 1.17 (1.5-2.0cm) IVSs 1.22 cm MV EPSS 0.6 (<0.5cm) LVDs 3.26 (2.0-3.8cm) FS (%) 24 % PWs 1.51 cm ESV(Teich) 42.9 ml LVEF(%) 47 (>50%) Aortic Valve AoV Peak Bienvenido. 212.4 cm/s AoV VTI 37.8 cm AO Peak GR. 18.0 mmHg AO Mean GR. 8 mmHg LVOT Peak Bienvenido. 96.4 cm/s ALEX(VTI)/BSA 1.29 cm2/m2 ALEX (VTI) 1.29 cm2 Mitral Valve MV E Velocity 602.0 cm/s MV Peak Gr. 10 mmHg MV DECEL TIME 196 ms MV A Velocity 41.2 cm/s MV Mean Gr. 3 mmHg E/A Ratio 14.6 MR GKwj069.1 cm/sMV YHgf726.4 cm/s MR PG Lqn114.2 mmHgMV VMean73.2 cm/s MVA VTI2.13 cm2MV VTI22.8 cm Tricuspid Valve TR P. Velocity 341 cm/s RAP ESTIMATE 10 mmHg TR Peak Gr. 46 mmHg RVSP 56 mmHg LEFT VENTRICLE Normal LV size and wall thickness. Overall systolic function is mildly reduced. Overall LVEF is 50-55 %. RIGHT VENTRICLE Right ventricle is mildly dilated with adequate function. Estimated PA systolic pressure is 56 mmHg. ATRIA Left atrium is moderately dilated. The right atrium size appears normal. AORTIC VALVE Trileaflet AV appears calcified with moderate stenosis. ALEX is measured at 1.29 cmsq. Peak / mean gra dients of 18/8 mmHG. Peak velocity is measured at 212.42 cm/sec. Stenosis severity is likely moder ate but fails to meet criteria due to low flow, low gradient conditions. Trace insufficiency. MITRAL VALVE Moderate MV annular calcification with mild stenosis. Posterior Mitral leaflet is thickened, calcifi ed with reduced excursion. MVA is measured at 2.13 cmsq. Peak / mean gradients of 10/2 mmHG. Peak bienvenido ocity is measured at 159.38 cm/sec. Moderate regurgitation. TRICUSPID VALVE TV appears structurally normal with moderate regurgitation. Estimated PA systolic pressure of 56 mm o f mercury. PULMONIC VALVE Normal PV without stenosis, physiologic insufficiency. GREAT VESSELS The aortic root is normal in size. IVC is not well visualized. PERICARDIUM Grossly normal pericardium. No pericardial effusion seen. Other Information Study Quality: Adequate Conclusion Overall LVEF is 50-55%. Normal LV size and wall thickness. Overall systolic function is mildly reduced. Mild inferior hypoki nesia seen Right ventricle is mildly dilated with adequate function. Estimated PA systolic pressure is 56 mmHg. Trileaflet AV appears calcified with moderate stenosis. ALEX is measured at 1.29 cmsq. Peak / mean gradients of 18/8 mmHG. Peak velocity is measured at 212.42 cm/sec. Stenosis severity is li osorio moderate but fails to meet criteria due to low flow, low gradient conditions. Trace insuffic iency. Moderate MV annular calcification with mild stenosis. Posterior Mitral leaflet is thickened, calcif ied with reduced excursion. MVA is measured at 2.13 cmsq. Peak / mean gradients of 10/2 mmHG. Pea k velocity is measured at 159.38 cm/sec. Moderate regurgitation. TV appears structurally normal with moderate regurgitation. Estimated PA systolic pressure of 56 mm of mercury. Normal PV without stenosis, physiologic insufficiency. Grossly normal pericardium. No pericardial effusion seen.
--- NOTE | 2024-08-17 13:37 | PROGRESS NOTE ---
Progress Note Cardiology Providers to CC ~ Subjective Subjective Patient seen and examined this afternoon. Noted decision by the team to treat her right hip fracture conservatively. Her son at bedside all their questions answered. Patient continues to have significant right hip pain. Spoke with RN and patient has already preordered Dilaudid as needed. Objective Result Diagram: 08/17/2443408/17/[id number] Objective General: Normal body habitus, no acute distress, HEENT: Sclerae clear, PERRL, gums without lesions or bleeding, oropharynx clear without erythema or exudate. Neck: Supple without enlargement of the thyroid, or lymphadenopathy, Chest: Normal size and shape, no tenderness, nonlabored breathing, Breath sounds clear to auscultation. Heart: Irregularly irregular, variable S1. Abdomen: Soft, nontender, no organomegaly, bowel sounds present. Extremities: No edema cyanosis or clubbing. Coagulation Studies Laboratory Tests Test 08/17/24 04:35 Prothrombin Time 13.3 SECONDS (9.0-12.0) H INR International Normalized Ratio 1.3 INR Activated Partial Thromboplast Time 28 SECONDS (22-32) Coagulation Comments Problem\Assessment\Plan Additional Plan 1. * An 88-year-old female with right hip fracture, being evaluated with Dr. Medrano. CT shows mildly displaced distal femoral metaphysis fracture, fracture line extending very close to the femoral component of her prosthesis. Because of right hemiparesis the team has decided for conservative therapy for right hip fracture. Management per hospitalist and Dr. Medrano. 2. CAD status post CABG x2: Continue medical therapy 3. * PAF with RVR. Now rate controlled with metoprolol tartrate 50 mg p.o. b.i.d., amiodarone 200 mg p.o. b.i.d. For one week followed by 200 mg once a day. Continue anticoagulation. 4. * Hypertension, hyperlipidemia, concern with coronary risk factor modification. 5. Other comorbidities include hypothyroidism, prior history of lung cancer, history of CVA with right hemiparesis, history of seizure, 6. history of diastolic failure. Titrate diuretics as required. Keep her euvolemic. FRANCOISE PATEL MD August 17, 2024 13:37
[2024-08-17] MEDS: HYDROmorphone inj. 0.5 MG/0.5 ML DISP.SYRIN IV ONE (13:45)
[2024-08-18 02:00] VITALS: BP 138/66; PULSE 72; RESP 16; TEMP 98.5; O2SAT 95
[2024-08-18 04:35] LABS: BASOPHILS % (AUTO) 0.3 % (0-1); EOSINOPHILS # (AUTO) 0.1 X10'3 (0-0.9); EOSINOPHILS % (AUTO) 1.8 % (0-6); HEMATOCRIT 23.4 % (35.0-45.0); HEMOGLOBIN 8.2 g/dl (12.0-16.0); LYMPHOCYTES # (AUTO) 1.1 X10'3 (1.1-4.8); LYMPHOCYTES % (AUTO) 14.8 % (21-51); MEAN CORPUSCULAR HEMOGLOBIN 34.2 PG (27.0-31.0); MEAN CORPUSCULAR HGB CONC 35.1 g/dL (33.0-36.5); MEAN CORPUSCULAR VOLUME 97.5 FL (78-98); MEAN PLATELET VOLUME 8.4 FL (7.4-10.4); MONOCYTES # (AUTO) 0.6 X10'3 (0-0.9); MONOCYTES % (AUTO) 7.5 % (2-12); NEUTROPHILS # (AUTO) 5.8 X10'3 (1.8-7.7); NEUTROPHILS % (AUTO) 75.6 % (42-75); PLATELET COUNT 204 X10'3 (140-440); RED CELL DISTRIBUTION WIDTH 12.2 % (11.5-14.5); WHITE BLOOD COUNT 7.7 X10'3 (4.5-11.0)
[2024-08-18 04:43] LABS: INR 1.2 INR; PROTHROMBIN TIME 12.1 SECONDS (9.0-12.0)
[2024-08-18 04:47] LABS: ALANINE AMINOTRANSFERASE 24 U/L (12-78); ALBUMIN 2.7 G/DL (3.4-5.0); ALBUMIN/GLOBULIN RATIO 0.9 (1.1-1.5); ALKALINE PHOSPHATASE 111 IU/L (46-116); ANION GAP 7 (8-16); ASPARTATE AMINO TRANSFERASE 16 U/L (10-37); BILIRUBIN,TOTAL 0.5 MG/DL (0.1-1.0); BLOOD UREA NITROGEN 16 MG/DL (7-18); CALCIUM 8.1 MG/DL (8.5-10.1); CHLORIDE 103 MMOL/L (99-107); CREATININE 0.47 MG/DL (0.40-0.90); GLUCOSE 103 MG/DL (70-104); POTASSIUM 3.3 MMOL/L (3.5-5.1); SODIUM 138 MMOL/L (135-145); TOTAL CARBON DIOXIDE 27.7 MMOL/L (24-32); TOTAL PROTEIN 5.7 G/DL (6.4-8.2); eCRCL 61 ML/MIN; eGFR > 90 ML/MIN
[2024-08-18] MEDS ORDERED: potassium Cl 20 mEq SR tablet PO PRN (05:05)
[2024-08-18] MEDS: potassium Cl 20 mEq SR tablet PO PRN (05:14)
[2024-08-18 06:00] VITALS: BP 164/80; PULSE 94; RESP 18; TEMP 98.5; O2SAT 96
[2024-08-18 08:00] VITALS: RESP 18; O2SAT 96
--- NOTE | 2024-08-18 09:15 | PROGRESS NOTE ---
Progress Note Cardiology Providers to CC ~ Subjective Subjective Patient seen and examined this morning before discharge. Patient continues to have intermittent right hip pain. No chest pain or shortness of breath. Her AFib rate is controlled. Objective Result Diagram: 08/18/[id number] Objective General: Normal body habitus, no acute distress, HEENT: Sclerae clear, PERRL, gums without lesions or bleeding, oropharynx clear without erythema or exudate. Neck: Supple without enlargement of the thyroid, or lymphadenopathy, Chest: Normal size and shape, no tenderness, nonlabored breathing, Breath sounds clear to auscultation. Heart: Irregularly irregular, variable S1. Abdomen: Soft, nontender, no organomegaly, bowel sounds present. Extremities: No edema cyanosis or clubbing. Right hip fracture. Coagulation Studies Laboratory Tests Test 08/17/24 04:35 08/18/24 04:00 Activated Partial Thromboplast Time 28 SECONDS (22-32) Prothrombin Time 12.1 SECONDS (9.0-12.0) H INR International Normalized Ratio 1.2 INR Coagulation Comments Problem\Assessment\Plan Additional Plan 1. * An 88-year-old female with right hip fracture, being evaluated with Dr. Medrano. CT shows mildly displaced distal femoral metaphysis fracture, fracture line extending very close to the femoral component of her prosthesis. Because of right hemiparesis the team has decided for conservative therapy for right hip fracture. Patient being discharged back to [facility] ([place]). Management per hospitalist and Dr. Medrano. 2. CAD status post CABG x2: Continue medical therapy 3. * PAF with RVR. Now rate controlled with metoprolol tartrate 50 mg p.o. b.i.d., amiodarone 200 mg p.o. b.i.d. For one week followed by 200 mg once a day. Continue anticoagulation. 4. * Hypertension, hyperlipidemia, concern with coronary risk factor modification. 5. Other comorbidities include hypothyroidism, prior history of lung cancer, history of CVA with right hemiparesis, history of seizure, 6. history of diastolic failure. Titrate diuretics as required. Keep her euvolemic. FRANCOISE PATEL MD August 18, 2024 09:15
[2024-08-18 11:00] VITALS: BP 161/90; PULSE 104; RESP 19; TEMP 98.6; O2SAT 93
[2024-08-18 13:26] VITALS: RESP 14
--- NOTE | 2024-08-18 13:58 | DISCHARGE SUMMARY-Residence ---
Discharge Summary Providers to Resident Creating Document: BECKY BRAGGKEVIN ~ Discharge Summary Admission Diagnosis: Hip fracture Hospital Course DATE OF ADMISSION: August 14, 2024 DATE OF DISCHARGE: August 18, 2024 Discharge Diagnosis\Comment: Acute non-traumatic closed osteoprotic right femoral fracture (fragility fracture) Acute mildly impacted distal femoral metaphysis fracture with a fracture line extending very close to the femoral component of the prosthesis. History of osteoporosis Paroxysmal atrial fibrillation with RVR Hypertension Hypothyroidism Operations\Procedures: none Consultants: Dr. Medrano Complications: none Condition on DC: Stable Discharge Summary: HPI: The patient is a long-term resident of [facility] since 2020 following a stroke that resulted in residual right arm and right leg weakness. She is bed- bound and has history of bilateral knee replacement. Her past medical history includes hypothyroidism, hyperlipidemia, hypertension, and a distant history of treated lung cancer. Last night, the patient has slid out of bed and has since been complaining of right hip and right femoral pain. On exam, the right leg is shortened and externally rotated, raising concern for a possible right hip fracture. She is currently in significant pain. Hospital course: Patient has history of severe osteoporosis. She had acute right femoral fracture preceded by mild trauma. CT showed acute mildly impacted distal femoral metaphysis fracture. Pain management initially with dilaudid 1 mg every 6 hours as needed and later with Dresher 5/10. Dr. Medrano consulted, who evaluated the patient and recommended nonsurgical management, brace applied. She also had paroxysmal atrial fibrillation with a heart rate in 140s. Cardizem 10 mg IV bolus ordered, followed by Cardizem drip and later p.o. Cardizem. Her cleaner and trimmer; Dr. Wiseman evaluated the patient recommended metoprolol 50 mg daily along with amiodarone 200 mg twice daily for seven days and then once daily continued. Discharge course: Patient is bed-bound. Her pain is controlled with oral opioids. She has transferred back to [facility] in stable condition. Discharge medications: Amiodarone 200 mg p.o. twice daily, stopped it August 22, 2024 Amiodarone 200 mg p.o. once daily Aspirin 81 mg daily Atorvastatin 80 mg daily Ferrous sulfate 325 mg one tablet p.o. 3 times daily Hydrocodone 10/325 as needed Lisinopril 10 mg p.o. daily Metoprolol 50 mg one tablet p.o. daily Nitroglycerin and SL 0.4 mg as needed Xarelto 15 mg daily Discharge physical exam: Vital Signs Date Time Temp Pulse Resp B/P (MAP) Pulse Ox O2 Delivery O2 Flow Rate FiO2 08/18/24 12:26 14 08/18/24 11:00 98.6 104 161/90 (113) 93 Room Air General: Normal body habitus, no acute distress, HEENT: Sclerae clear, PERRL, gums without lesions or bleeding, oropharynx clear without erythema or exudate. Neck: Supple without enlargement of the thyroid, or lymphadenopathy, Chest: Normal size and shape, no tenderness, nonlabored breathing, Breath sounds clear to auscultation. Heart: Irregularly irregular, variable S1. Abdomen: Soft, nontender, no organomegaly, bowel sounds present. Extremities: Right hip fracture, right hemiparesis, right leg externally rotated, braces applied CT scan performed on August 14, 2024 FINDINGS: Bones: Acute mildly impacted distal femoral metaphysis fracture involving the medial and posterior cortex with the fracture line extending distally very close to the prosthesis. The hip joint is maintained with mild changes of osteoarthritis labral chondrocalcinosis. The proximal and mid femoral cortex a mottled appearance. The bones appear demineralized. Soft tissues: Mild diffuse subcutaneous edema. Small suprapatellar joint effusion. Diffuse atherosclerotic disease . There is focal thickening of the mid/ distal femoral vein which may reflect underlying DVT. IMPRESSION: 1. Acute mildly impacted distal femoral metaphysis fracture with a fracture line extending very close to the femoral component of the prosthesis. Evaluation is limited by beam hardening artifact from the orthopedic hardware.Small suprapatellar joint effusion noted. 2. Mild diffuse subcutaneous edema with no large hematoma identified. 3. Demineralized bones with mottled appearance of the femoral cortex related to osteoporosis or reflect underlying infiltrative lesions such as multiple myeloma or metastasis. Recommend correlation with history. 4. Focal dilatation of the superficial femoral vein at junction of mid and distal segments that may represent underlying DVT. Recommend correlation with venous Doppler. 5. Peripheral arterial disease. Echo performed on August 16, 2024 Overall LVEF is 50-55%. Normal LV size and wall thickness. Overall systolic function is mildly reduced. Mild inferior hypokinesia seen Right ventricle is mildly dilated with adequate function. Estimated PA systolic pressure is 56 mmHg. Trileaflet AV appears calcified with moderate stenosis. ALEX is measured at 1.29 cmsq. Peak / mean gradients of 18/8 mmHG. Peak velocity is measured at 212.42 cm/sec. Stenosis severity is likely moderate but fails to meet criteria due to low flow, low gradient conditions. Trace insufficiency. Moderate MV annular calcification with mild stenosis. Posterior Mitral leaflet is thickened, calcified with reduced excursion. MVA is measured at 2.13 cmsq. Peak / mean gradients of 10/2 mmHG. Peak velocity is measured at 159.38 cm/sec. Moderate regurgitation. TV appears structurally normal with moderate regurgitation. Estimated PA systolic pressure of 56 mm of mercury. Normal PV without stenosis, physiologic insufficiency. Grossly normal pericardium. No pericardial effusion seen. *Problems/Diagnosis: (1) Closed right hip fracture Total Time Spent on D/C: Up to 30 Minutes Date of Service: August 18, 2024 Billing Provider: EAGLE ESCOBEDO MD, SHAMS, RES August 18, 2024 13:52
== END 2024-08-18 14:37 | DRG 543 ==
LOC: ER 16:15 → UNDOADMIN 18:04 → ED HOLD 18:04 → EDBEDREQSVC 08-15 05:28 → PCU 3S 08-15 07:13
PROVIDERS: ADMIT Family Medicine; ATTEND Family Medicine
PROC: 02HV33Z Insertion of Infusion Device into Superior Vena Cava, Percutaneous Approach (ICD-10-PCS; principal; 2024-08-15)
PROC: B548ZZA Ultrasonography of Superior Vena Cava, Guidance (ICD-10-PCS; 2024-08-15)
PROC: 2W3LX3Z Immobilization of Right Lower Extremity using Brace (ICD-10-PCS; 2024-08-15)
DX: M80.051A Age-related osteoporosis with current pathological fracture, right femur, initial encounter for fracture (principal); I50.32 Chronic diastolic (congestive) heart failure; I69.351 Hemiplegia and hemiparesis following cerebral infarction affecting right dominant side; J44.9 Chronic obstructive pulmonary disease, unspecified; E78.00 Pure hypercholesterolemia, unspecified; Z66 Do not resuscitate; I11.0 Hypertensive heart disease with heart failure; W06.XXXA Fall from bed, initial encounter; E11.9 Type 2 diabetes mellitus without complications; Z96.653 Presence of artificial knee joint, bilateral; E03.9 Hypothyroidism, unspecified; I48.0 Paroxysmal atrial fibrillation; I25.10 Atherosclerotic heart disease of native coronary artery without angina pectoris; Z74.01 Bed confinement status; Z88.8 Allergy status to other drugs, medicaments and biological substances; Z79.899 Other long term (current) drug therapy; Z79.82 Long term (current) use of aspirin; Z79.01 Long term (current) use of anticoagulants; Z90.710 Acquired absence of both cervix and uterus; I25.2 Old myocardial infarction; Y93.89 Activity, other specified; Y92.89 Other specified places as the place of occurrence of the external cause; Y99.8 Other external cause status; Z95.1 Presence of aortocoronary bypass graft; Z87.891 Personal history of nicotine dependence; Z85.118 Personal history of other malignant neoplasm of bronchus and lung
CPT/HCPCS: 36415; 71045; 73700; 80048; 80053; 80076; 80185; 83880; 84443; 85025; 85610; 85730; 87081; 93005; 93306; 93971; 96372; 96374; 96375; 99285; A4615; A6258; C1751; G0378; J1160; J1171; J1644; J3490; J7030